=== PATIENT | female | born 1985 | race Caucasian/White ===

== ENCOUNTER 2019-09-02 12:29 | Emergency (ER) | payer SELFPAY ==
[2019-09-02 12:32] VITALS: BP 104/66; PULSE 91; RESP 18; TEMP 37; O2SAT 98; BMI 32.9
[2019-09-02 12:34] VITALS: TEMP -17.7; TEMP 0
== END 2019-09-02 18:31 | disposition left against medical advice (07) ==
PROVIDERS: Emergency Provider Emergency Medicine
DX: R05 Cough (principal)

== ENCOUNTER 2019-09-04 08:29 | Emergency (ER) | payer SELFPAY ==
[2019-09-04 08:29] VITALS: BP 115/65; PULSE 111; RESP 17; TEMP 38.5; O2SAT 94; BMI 33.1
[2019-09-04 08:38] VITALS: BP 115/65; PULSE 111; RESP 17; TEMP 38.5; O2SAT 94
--- NOTE | 2019-09-04 08:46 | RAD_ITS ---
STUDY: X-RAY CHEST REASON FOR EXAM: Female, 34 years old. Cough and fever. TECHNIQUE: PA and lateral views of the chest. COMPARISON: None. FINDINGS: Right lower lobe consolidation. There is no demonstrated pleural abnormality. Normal size heart. Normal mediastinum and trevon. Normal visualized pulmonary arteries. Normal visualized aortic arch and descending thoracic aorta. Normal visualized thoracic spine. Normal visualized ribs, clavicles, and shoulders. Evidence of prior cholecystectomy. RAD/Chest PA and Lateral IMPRESSION: Right lower lobe consolidation. Electronically Signed: David Barajas, at 9:20 EDT , Service support ,
--- NOTE | 2019-09-04 08:46 | ED.VISSUMM ---
- ER Visit Summary Date of Service: 09/04/19 Chief Complaint: Cough and fever History of Present Illness: The patient is a 34 F past medical history. Prior cholecystectomy. Patient states since Saturday she has had a fever and nonproductive cough. Also has had some mild nausea and some diarrhea. No dysuria. No abdominal pain. No sore throat. Physical Examination: Well appearing young female no acute distress. Vital signs are stable she does have a fever of 101.3. Pulse ox 94% on room air no signs of hypoxia. H EENT exam is unremarkable. Posterior pharynx moist and pink. No erythema or exudate. TMs normal bilaterally. No trouble swallowing or breathing. No stridor or drooling. Neck nontender. No lymphadenopathy. Trachea midline. Lungs clear to auscultation bilaterally. Dry cough. No rales, rhonchi or wheezing. Equal symmetrical. Heart tachycardic rate about 110 no murmur. Abdomen soft nontender normal bowel sounds no peritoneal signs. Patient moving all 4 extremities. Neurovascular intact. Back nontender. Neurologically she is awake alert with no focal motor deficits. Test Results: Chest x-ray AP and lateral 2 views read by myself and radiologist shows a definite right lower lobe pneumonia and possibly an infiltrate in the left lower lobe. Read by myself. Emergency Department Course and Treatment: P.o. Tylenol here. Patient's history and exam are consistent with pneumonia. Treatment Plan: Fluids and rest. Alternate Tylenol Motrin. Follow-up if not improving or return if worse. Given first dose of Zithromax here and then placed on it for 4 more days. Primary care physician follow-up with. Return if worse. Clinically the patient looks good she is not hypoxic she is in no distress we can attempt to treat this as an outpatient if she gets worse to return to be admitted. Disposition: Discharge Impression: Acute right lower lobe pneumonia This note was generated with [employer] dictation software. It may contain incorrect words, spelling, and punctuation that were not noted in review of the chart prior to signing ED Disposition - Plan for ED Patient: Disposition: Home or Assisted Living Instructions: PNEUMONIA (Adult) Prescriptions: Azithromycin [Zithromax] 250 mg PO DAILY #4 tab Prescription Printed Referrals: Dominic Cintron MD [STAFF PHYSICIAN] - 1 Week if not improving Additional Instructions: Plenty of fluids and rest. Alternate Tylenol Motrin for fever. Follow-up with your doctor if not improving or return if worse.
--- NOTE | 2019-09-04 08:49 | ED.DEP ---
ED Disposition - Plan for ED Patient: Disposition: Home or Assisted Living Instructions: PNEUMONIA (Adult) Prescriptions: Azithromycin [Zithromax] 250 mg PO DAILY #4 tab Prescription Printed Referrals: Dominic Cintron MD [STAFF PHYSICIAN] - 1 Week if not improving Additional Instructions: Plenty of fluids and rest. Alternate Tylenol Motrin for fever. Follow-up with your doctor if not improving or return if worse.
[2019-09-04] MEDS: Azithromycin 250 MG Tablet 500 MG PO (09:20)
[2019-09-04] MEDS: Acetaminophen 500 MG Tablet 1000 MG PO (09:20)
== END 2019-09-04 09:28 | disposition home or self-care (01) ==
LOC: ED 09:15
PROVIDERS: Emergency Provider Emergency Medicine
DX: J18.9 Pneumonia, unspecified organism (principal)
CPT/HCPCS: 71046; 99283

== ENCOUNTER 2020-04-11 15:13 | Emergency (ER) | payer SELFPAY ==
[2020-04-11 15:15] VITALS: BP 129/78; PULSE 77; RESP 18; TEMP 36.7; O2SAT 99; BMI 34.2
== END 2020-04-11 16:13 | disposition left against medical advice (07) ==
LOC: ED 16:54
PROVIDERS: Emergency Provider Emergency Medicine
DX: Z53.21 Procedure and treatment not carried out due to patient leaving prior to being seen by health care provider (principal)

== ENCOUNTER 2020-08-15 16:47 | Emergency (ER) | payer SELFPAY ==
[2020-08-15 16:49] VITALS: BP 127/77; PULSE 92; RESP 18; TEMP 36.3; O2SAT 98; BMI 36.2
--- NOTE | 2020-08-15 18:12 | RAD_ITS ---
STUDY: X-RAY CHEST REASON FOR EXAM: Female, 35 years old. shortness of breath x 1 week TECHNIQUE: Single AP portable view of the chest. COMPARISON: 09/04/2019. FINDINGS: The lungs are clear and expanded. There is no demonstrated pleural abnormality. Normal size heart. Normal mediastinum and trevon. Normal visualized pulmonary arteries. Normal visualized aortic arch and descending thoracic aorta. Normal visualized thoracic spine. Normal visualized ribs, clavicles, and shoulders. There is no demonstrated abnormality of the visualized soft tissue structures of the upper abdomen. RAD/Chest 1 View (Portable) IMPRESSION: Normal x-ray examination of the chest. Electronically Signed: Alexa Rivera MD at 19:14 EDT Tel , Service support ,
--- NOTE | 2020-08-15 19:31 | ED.DCSUM_ITS ---
- ER Visit Summary Date of Service: 08/15/20 Chief Complaint: Cough History of Present Illness: The patient is a 35 F with no primary care physician. She reports his cough began 1 week ago. She reports it is nonproductive. She has severe shortness of breath at worst mild currently. She has had subjective fever and chills. She has had sick contacts. She reports that her daughter had a sore throat. She did not have a cough. She reports that she wears a mask at all times. Patient reports that this is similar to when she is had pneumonia in the past. Physical Examination: Vitals: Stable. Afebrile. General: Well-nourished and well-developed. Head: Normocephalic atraumatic. Neck: Supple, no lymphadenopathy. No JVD. Nontender. Cardiovascular: Regular rate and rhythm. No murmurs. Respiratory: No respiratory distress. Clear to auscultation bilaterally. Abdominal: Soft, nontender, nondistended, normal bowel sounds. No guarding, rebound, or peritoneal signs. Back: Nontender. Extremities: Nontender, no edema. Skin: Normal color, no rash. Neurologic: Alert and oriented ?3. Cranial nerves II through XII are intact. Normal strength and sensation. Psych: Normal affect. Test Results: Clinical Impression(s) from Imaging Studies Chest X-Ray 08/15/20 18:12 IMPRESSION: Normal x-ray examination of the chest. Electronically Signed: Alexa Rivera MD at 19:14 EDT Tel , Service support , Emergency Department Course and Treatment: COVID-19 test was sent. Patient is resting comfortably. Treatment Plan: Patient be discharged with symptomatic care. She does understand that she may have COVID-19. She is instructed to quarantine. Follow-up with Dr. Montalvo in 10 to 14 days if not improving. Return to the emergency department for any worsening symptoms. Disposition: To home in improved and stable condition. Impression: 1. URI, possible COVID-19 infection. This note was generated with [employer] software. It may contain incorrect words, spelling, and punctuation that were not noted in review of the chart p rior to signing ED Disposition - Plan for ED Patient: Disposition: Home or Assisted Living Instructions: ED Upper Resp Infec No Abx Tx Referrals: Nando Montalvo MD [STAFF PHYSICIAN] - 10-14 Days if not better
[2020-08-15 20:02] VITALS: BP 125/72; PULSE 75; RESP 16; TEMP 36.7; O2SAT 98
== END 2020-08-15 20:05 | disposition home or self-care (01) ==
LOC: ED 18:10
PROVIDERS: Emergency Provider Emergency Medicine
DX: J06.9 Acute upper respiratory infection, unspecified (principal); F17.200 Nicotine dependence, unspecified, uncomplicated
CPT/HCPCS: 71045; 87635; 99282; U0003

== ENCOUNTER 2022-05-10 10:32 | Emergency (ER) | payer MEDICAID, SELFPAY ==
[2022-05-10 10:33] VITALS: BP 125/74; PULSE 105; RESP 20; TEMP 37.2; O2SAT 98; BMI 34.2
[2022-05-10 10:36] VITALS: BP 125/74; PULSE 105; RESP 20; TEMP 37.2; O2SAT 98
--- NOTE | 2022-05-10 10:45 | EX.ED.DYSGE1 ---
HPI <ERIKA Guzmán - Last Filed: 05/10/22 11:21> History of Present Illness Chief Complaint: General Illness Narrative Narrative: Female with no sniffing medical history presents to the emergency department with 2 days of generalized malaise, fatigue, headache, cough. Patient states that yesterday morning she woke up with a sore throat, she just learned that 2 of her coworkers had COVID-19. Patient went to a parade, and this morning had a fever, body aches, cough, and is here for evaluation. She denies any nausea or vomiting. PFSH <ERIKA Guzmán - Last Filed: 05/10/22 11:21> [facility] Home Medications NK 08/15/20 [History Last Taken Unknown] Allergy/AdvReac Type Severity Reaction Status Date / Time No Known Allergies Allergy Verified 05/10/22 10:36 Surgical History History of cholecystectomy Social History Smoking Status: Current every day smoker tobacco type: cigarettes ROS <ERIKA Guzmán - Last Filed: 05/10/22 11:21> ROS ED ROS Narrative Constitutional: Negative for weight loss, weakness. Positive for fever and chills Eyes: Negative for vision loss, vision change, double vision ENT: Negative for any sore throat, ear pain, congestion Cardiovascular: Negative for any chest pain, tightness, palpitations Respiratory: Negative for any sputum production, hemoptysis, dyspnea, dyspnea on exertion, orthopnea. Positive for cough Gastrointestinal: Negative for any abdominal pain, nausea, vomiting, diarrhea, constipation, blood in stool, blood in vomit : Negative for any urinary frequency, dysuria, retention, blood in urine Muscle skeletal: Negative for any muscle joint pain, stiffness, myalgias, arthralgias, neck pain, back pain Neurological: Negative for any syncope, numbness or tingling, dizziness. Positive for headache Skin: Negative for any rashes, lumps, itching, abrasions, lacerations Psychiatric: Negative for any depression, anxiety, stress, suicidal ideation, homicidal ideation Hematologic: Negative for any easy bruising, excessive bruising, easy bleeding Allergies: Negative for any eczema, hives, rash Constitutional Constitutional ED: Reports chills and fever(s) EXAM <ERIKA Guzmán - Last Filed: 05/10/22 11:21> Physical Exam Narrative Exam Narrative: Vital signs reviewed. HEET: Head normocephalic atraumatic, TMs clear bilaterally. Posterior pharynx is clear, moist mucous membranes. Nares clear bilaterally. Neck: Supple with no lymphadenopathy or tenderness. No signs of meningismus, negative jolt sign. Cardiac: Regular rate and rhythm no murmurs gallops or rubs, equal peripheral pulses bilaterally. Respiratory: Lungs clear to auscultation bilaterally. No chest tenderness. Abdomen: Soft, nontender, nondistended. No abdominal bruit or pulsatile masses. No hepatosplenomegaly Extremities: No peripheral edema, no signs of gross trauma or deformity. Active full range of motion of all extremities. Neuro: Cranial nerves II through XII intact, no focal neurological deficits. Skin: Clean dry and intact with no rash, purpura, petechiae, vesicles or pustules. Backs/flank: No CVA tenderness, no midline spinal tenderness, no deformity. Psych: Normal mood and affect. No SI, HI or acute psychosis. Const Vital Signs: 05/10/22 10:33 05/10/22 10:36 05/10/22 10:49 Temperature 98.9 F 98.9 F Temperature Source Temporal Temporal Pulse Rate 105 H 105 H Respiratory Rate 20 H 20 H Respiratory Effort Normal Non-Labored Respiratory Pattern Normal Blood Pressure 125/74 H 125/74 H Blood Pressure Mean 91 Pulse Ox 98 98 Oxygen Delivery Method Room Air Room Air 05/10/22 11:24 Temperature Temperature Source Pulse Rate Respiratory Rate 16 Respiratory Effort Respiratory Pattern Blood Pressure Blood Pressure Mean Pulse Ox Oxygen Delivery Method <Dr. J Carlos Dougherty MD - Last Filed: 05/10/22 11:45> Physical Exam Const Vital Signs: 05/10/22 10:33 05/10/22 10:36 05/10/22 10:49 Temperature 98.9 F 98.9 F Temperature Source Temporal Temporal Pulse Rate 105 H 105 H Respiratory Rate 20 H 20 H Respiratory Effort Normal Non-Labored Respiratory Pattern Normal Blood Pressure 125/74 H 125/74 H Blood Pressure Mean 91 Pulse Ox 98 98 Oxygen Delivery Method Room Air Room Air 05/10/22 11:24 Temperature Temperature Source Pulse Rate Respiratory Rate 16 Respiratory Effort Respiratory Pattern Blood Pressure Blood Pressure Mean Pulse Ox Oxygen Delivery Method MDM <ERIKA Guzmán - Last Filed: 05/10/22 11:21> [facility] Lab Data Attestation: I reviewed the patient's lab results. Treatment and Re-Evaluation Narrative: Patient appears well, patient appears nontoxic, vital signs are stable. Patient presents to the emergency department for headache, cough viral-like illness. Patient's physical examination is consistent with a viral illness. There is no indication of bacterial infection, patient did receive a rapid influenza/COVID-19 test. Patient told the nurse that her ride is here, her fever broke, she would just like to be discharged. The nurse did explain to her that the test are not back however she stated that she does not care and she left anyway. Patient was unable to get any discharge instructions, patient did not get reevaluated by provider. Patient be diagnosed with viral-like illness. <Dr. J Carlos Dougherty MD - Last Filed: 05/10/22 11:45> [facility] Narrative Medical decision making narrative: I have personally performed a face to face assessment of the patient and have reviewed the CHEVY Note. I performed a substantive portion of the visit including all aspects of the following. My chen findings include: History is is remarkable for upper respiratory infectious symptoms started yesterday. Patient has been exposed to multiple coworkers that are positive for COVID. HEENT is remarkable for congestion and decreased smell. There is no alteration in taste. She does complain of head pressure. She denies photophobia, neck pain or neck stiffness. She does endorse cough. Cough is nonproductive. She does endorse nausea and had diarrhea yesterday. She denies rash. She denies joint swelling. She does endorse aching. Exam is patient is tachycardic. She is not febrile nor is she hypoxic. Patient is curled up left side. She appears ill but not toxic. HEENT exam is remarkable for nasal congestion. Lungs are clear to auscultation with good movement of air bilaterally. Heart is rapid and regular. There is no murmur, gallop or rub. Abdomen is soft nontender. There are no dermatologic lesions noted. There is no nuchal rigidity. Medical Decision Making suspect patient has COVID-19 infection. COVID test was ordered. Treatment is symptomatic at this point Other additions or changes: Patient states her right has not arrived. She left prior to the nurse practitioner or I have not an opportunity to talk to her. She left without her home-going instructions. Suspect patient has COVID-19 infection in light of history and symptoms. Discharge Plan Triage Chief Complaint: General Illness ED Midlevel Provider: Juan Alberto Ellis ED Provider: J Carlos Dougherty Dx/Rx/DC Orders Clinical Impression: Suspected 2019 novel coronavirus infection, Viral syndrome Prescriptions: No Action NK Primary Care Provider: Care Physician,No Primary Referrals: Care Physician,No Primary [Primary Care Provider] - Print Language: Burundian Disposition Disposition: Home, Self Care Discharge Date/Time: 05/10/22 11:25
[2022-05-10] MEDS: Ibuprofen 400 MG Tablet 800 MG PO (10:49)
--- NOTE | 2022-05-10 11:19 | ED.RN ---
THIS RN ANSWERS CALL LIGHT. PT STATES MY FEVER BROKE. I JUST WANT TO GO HOME TO MY OWN BED. STATES SHE WILL JUST VIEW RESULTS VIA TEXT MSGS SHE HAD SIGNED UP FOR THAT UPON REGISTRATION. PT LEFT PRIOR TO D/C INSTRUCTIONS. ENCOURAGED TO COME BACK WITH ANY FURTHER COMPLICATIONS. DR. MCCOLLUM NOTIFIED OF PTS DEPARTURE PRIOR TO D/C INSTRUCTIONS
[2022-05-10 11:24] VITALS: RESP 16
== END 2022-05-10 11:25 | disposition home or self-care (01) ==
PROVIDERS: Emergency Provider Emergency Medicine; Visit Provider Emergency Medicine
DX: Z20.822 Contact with and (suspected) exposure to COVID-19 (principal); B34.9 Viral infection, unspecified; F17.210 Nicotine dependence, cigarettes, uncomplicated
CPT/HCPCS: 87428; 99282

== ENCOUNTER 2023-08-08 11:26 | Emergency (ER) | payer MEDICAID, SELFPAY ==
[2023-08-08 11:27] VITALS: BP 109/73; PULSE 80; RESP 18; TEMP 35.5; O2SAT 100
--- NOTE | 2023-08-08 12:49 | EDS_ITS ---
HPI History of Present Illness Chief Complaint: Chest Other Informant: patient Narrative Narrative: Patient is a 38-year-old female with history of regular tobacco use presenting with continued left-sided rib pain. Patient was diagnosed with pneumonia about a month ago at [facility] urgent care. She was treated with a course of doxycycline. She has continued to have a cough and over the past week or so has developed worsening right-sided rib pain. She actually went back to urgent care a week ago where they did x-rays and told her nothing was broken. She was put on NSAIDs (Motrin) which she feels is not very helpful. She is having continued pain but no new respiratory or cough symptoms. She states she cannot sleep at night because the pain is so bad. It is worse with deep breathing and movement. No new fevers. No difficulty breathing. No swelling of her legs. No other complaints or concerns at this time. PFSH PFSH Home Medications oxycodone 5 mg tablet 5 mg PO Q6H PRN pain 3 days #12 tabs 08/08/23 [Rx Last Taken Unknown] Allergy/AdvReac Type Severity Reaction Status Date / Time No Known Allergies Allergy Verified 08/08/23 11:27 Surgical History History of cholecystectomy Social History Smoking Status: Current every day smoker tobacco type: cigarettes ROS ROS ED Constitutional Constitutional ED: Denies chills or fever(s) ENT ENT ED: Denies sore throat Cardiovascular Cardiovascular: Reports as per HPI and chest pain Respiratory/Chest Respiratory/Chest: Reports cough; Denies dyspnea or dyspnea on exertion Gastrointestinal Gastrointestinal: Denies nausea or vomiting Musculoskeletal Musculoskeletal: Denies arthralgias or myalgias Integumentary Denies rash Neurologic Neurologic: Denies headache(s) Hematologic/Lymphatic Hematologic/Lymphatic: Denies easy bleeding or easy bruising EXAM Physical Exam Const Vital Signs: 08/08/23 11:27 Temperature 96 F L Temperature Source Temporal Pulse Rate 80 Respiratory Rate 18 Blood Pressure 109/73 Blood Pressure Mean 85 Pulse Ox 100 Oxygen Delivery Method Room Air Positive well nourished and well developed General Appearance ED: well developed and NAD HEENT Reports moist mucous membranes Eyes PERRL and EOMs intact bilaterally Neck supple and no JVD Chest Wall inspection of chest normal Chest Narrative: Significant tenderness palpation of the inferior left ribs especially along the costal margin. No chest wall crepitus or deformity appreciated. Resp normal respiratory effort and clear to auscultation bilaterally Auscultation: Negative for wheezes Cardio regular rate, regular rhythm and no murmurs GI normal to inspection, nondistended, normoactive bowel sounds and soft to palpation Back/Spine no thoracic nor lumbar tenderness Extremity normal to inspection General Extremety ED: Negative for edema General Extremity: Negative for edema Neuro oriented x3 Sensorium / Orientation: awake and alert Psych mental status grossly normal Skin no rashes or lesions noted and no wounds MDM MDM MDM Narrative Medical decision making narrative: Evaluated for continued worsening left-sided rib pain. Presentation highly consistent with costochondritis especially given her recent pneumonia and frequent coughing. Is highly reproducible on exam. She had imaging a week ago that did not show any acute process. She had no progression of her symptoms including change in her cough or new fever. She has normal vital signs. She is PE RC negative. I do not think she requires repeat imaging at this time. Patient be treated symptomatically with Lidoderm patch, oxycodone and Motrin. Will be given a short course of oxycodone and continue NSAID therapy as well. Counseled to use [id number] Lidoderm patches. Is counseled on the risk of a secondary pneumonia associated with taking shallow breaths was given an incentive spirometer and instructed on the importance of use. Discharged home in stable condition. Discussed and encouraged smoking cessation especially given her recent respiratory symptoms. Discharge Plan Triage Chief Complaint: Chest Other ED Provider: [place] Dx/Rx/DC Orders Clinical Impression: Costochondral chest pain Instructions: ED Chest Wall Pain, Costochondritis Prescriptions: New oxycodone 5 mg tablet 5 mg PO Q6H PRN (Reason: pain) 3 Days Qty: 12 0RF Primary Care Provider: Care Physician,No Primary Referrals: Care Physician,No Primary [Primary Care Provider] - Activity Restrictions/Additional Instructions: I recommend using [id number] 4% Salonpas extra strength Lidoderm patches to help with the pain in your chest wall. You can apply 1 a day. Continue taking anti-inflammatory such as ibuprofen or naproxen throughout the day. Other you have been given a short course of pain medication, oxycodone, to help with the pain. Take Tylenol for breakthrough pain. Use incentive spirometer as we discussed to help prevent secondary pneumonia. Disposition Disposition: Home, Self Care Discharge Date/Time: 08/08/23 13:23
[2023-08-08] MEDS: Lidocaine 5% Patch 1 PATCH TOPICAL (13:05)
[2023-08-08] MEDS: oxyCODONE 5 MG Tablet PO (13:06)
[2023-08-08] MEDS: Ibuprofen 600 MG Tablet PO (13:06)
== END 2023-08-08 13:23 | disposition home or self-care (01) ==
PROVIDERS: Emergency Provider Emergency Medicine; Visit Provider Emergency Medicine
DX: R07.81 Pleurodynia (principal); F17.210 Nicotine dependence, cigarettes, uncomplicated
CPT/HCPCS: 99283

== ENCOUNTER → 2024-08-25 | Outpatient (CLI) | payer MEDICAID, SELFPAY ==
[2024-08-25 12:57] LABS: Absolute Lymphocyte Count 2.23 X10^3/uL (0.83-4.51); Absolute Neutrophil Count 3.7 X10^3/uL (2.0-7.7); Basophil# 0.06 X10^3/uL; Basophil% 0.8 % (0-1); Eosinophil# 0.41 X10^3/uL; Eosinophils% 5.7 % (0-5); Hematocrit 43.6 % (37-47); Hemoglobin 13.9 g/dL (12.0-15.0); Lymphocyte # 2.23 X10^3/ul (0.83-4.51); Lymphocyte % 31.2 % (19-41); Mean Corp Hgb Conc 31.9 g/dL (32-36); Mean Corpuscular Hgb 28.4 pg (27.0-32.0); Mean Corpuscular Volume 89.2 fL (81-99); Mean Platelet Vol. 11.8 fl (6.2-12.0); Monocyte# 0.68 X10^3/uL; Monocyte% 9.5 % (0-10); NRBC Flagged by Analyzer 0 % (0-5); Neutrophil # 3.74 X10^3/uL (2.7-7.7); Neutrophil % 52.5 % (47-70); Platelet Count 269 K/mm3 (150-450); RBC Distribution Width CV 13.2 % (11.6-14.6); RBC Distribution Width SD 43.3 fl (35.1-43.9); Red Blood Count 4.89 M/mm3 (4.2-5.4); White Blood Count 7.1 K/mm3 (4.4-11.0)
[2024-08-25 13:13] LABS: ALB/GLOB Ratio 0.8 RATIO (0.9-2.4); AST(SGOT) 12 U/L (15-37); Alanine Aminotransfer ALT/SGPT 26 U/L (13-56); Albumin, Serum 3.4 g/dL (3.2-5.0); Alkaline Phosphatase 66 U/L (45-117); Anion Gap 6 (5-15); BUN 12 mg/dL (7-18); BUN/Creat Ratio 17.4 RATIO (10-20); Calcium,Total 9.2 mg/dL (8.5-10.1); Chloride 110 mmol/L (98-107); Cholesterol 131 mg/dL (200); Creatinine, Serum 0.69 mg/dL (0.55-1.02); EST Glomerular Filtration Rate 102 mL/min (>60); Est Glom Filt Rate - Afr Amer 123 mL/min (>60); Ferritin 50 ng/mL (8-252); Glucose 74 mg/dL (74-106); High Density Lipoprotein 57 mg/dL; Magnesium 2.3 mg/dL (1.6-2.6); Protein, Total 7.4 g/dL (6.4-8.2); Sodium Level 139 mmol/L (136-145); Triglycerides 39 mg/dL; Very Low Density Lipoprotein 8 mg/dL (5-40)
[2024-08-25 15:36] LABS: Hemoglobin A1c 5.5 % (3.8-5.6)
== END | disposition home or self-care (01) ==
LOC: VSLAB 10:32
PROVIDERS: PCP Family Medicine; Visit Provider Family Medicine
DX: F33.9 Major depressive disorder, recurrent, unspecified (principal); Z13.6 Encounter for screening for cardiovascular disorders; Z13.228 Encounter for screening for other metabolic disorders
CPT/HCPCS: 36415; 80053; 80061; 82306; 82607; 82728; 83036; 83735; 84443; 85025

== ENCOUNTER 2025-07-03 10:09 | Emergency (ER) | payer MEDICAID, SELFPAY ==
[2025-07-03 10:09] VITALS: BP 108/68; PULSE 77; RESP 11; TEMP 36.2; O2SAT 100; BMI 33.2
--- NOTE | 2025-07-03 10:35 | RAD_ITS ---
PROCEDURE: SACRUM-COCCYX MIN 2 VIEWS 07/03/2025 REASON FOR EXAM: PAIN, POSS INJURY TECHNIQUE: SACRUM-COCCYX MIN 2 VIEWS COMPARISON: None. FINDINGS: Bones: No acute bony abnormalities. Joints: Unremarkable. Soft tissues: No soft tissue abnormalities. RAD/Sacrum-Coccyx min 2 Views IMPRESSION: No acute osseous abnormalities. Reading Location: [id number]
--- NOTE | 2025-07-03 10:36 | EDS_ITS ---
HPI History of Present Illness Chief Complaint: Back Informant: patient and EMS Narrative Narrative: Healthy 32-year-old female presenting via EMS for low back pain. It is in her mid low back, radiating to either side near her buttocks, and some mild discomfort in her proximal thighs at 1 point but not now and nothing radiating down to her beyond the knees. No saddle anesthesia. No numbness or tingling or weakness in her legs but today when she tried to get up it hurt so bad that she was unable to stand, saying that it was all related to pain and weakness. She felt maybe there was spasm going on. 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 This morning she woke up and the same symptoms were worse she denies any other new symptoms. No bowel or bladder dysfunction. No dysuria. No abdominal pain. States she has had back pain in this area in the past but not as severe as it was today. She denies any fevers or chills or other systemic symptoms. She states she feels okay right now as long as she does not move. PFSH PFS Home Medications ?Medication ?Instructions ?Recorded ?Last Taken ?Type oxycodone 5 mg tablet 5 mg PO Q6H PRN pain 3 days #12 08/08/23 Unknown Rx tabs cyclobenzaprine 10 mg tablet 10 mg PO TID PRN Muscle S pasm #20 07/03/25 Unknown Rx TABLETS naproxen 500 mg tablet (Naprosyn) 500 mg PO BID PRN pa in #14 tabs 07/03/25 Unknown Rx Allergy/AdvReac Type Severity Reaction Status Date / Time No Known Allergies Allergy Verified 07/03/25 10:10 Surgical History (Updated 07/03/25 @ 10:[address] Raymond Mckee MD) History of bilateral tubal ligation History of cholecystectomy Social History Smoking Status: Current every day smoker tobacco type: cigarettes ROS ROS ED Constitutional Constitutional ED: Denies chills or fever(s) Eyes Eyes: Denies change in vision or diplopia ENT ENT ED: Denies rhinorrhea or sore throat Cardiovascular Cardiovascular: Denies chest pain or palpitations Respiratory/Chest Respiratory/Chest: Denies cough or dyspnea Gastrointestinal Gastrointestinal: Denies abdominal pain, constipation, fecal incontinence, nausea or vomiting Genitourinary Genitourinary ED: Reports other Details: no urinary retention ; Denies abdominal discomfort or urinary incontinence Musculoskeletal Musculoskeletal: Reports as per HPI, back pain and muscle spasms; Denies neck pain Integumentary Denies rash or wounds Neurologic Neurologic: Denies headache(s), paresthesias or weakness Psychiatric Psychiatric: Denies suicidal thoughts EXAM Physical Exam Const Vital Signs: 07/03/25 10:09 Temperature 97.1 F L Temperature Source Temporal Pulse Rate 77 Respiratory Rate 11 L Blood Pressure 108/68 Blood Pressure Mean 81 Pulse Ox 100 Oxygen Delivery Method Room Air Positive well nourished and well developed Constitutional Narrative: Well-appearing in no distress lying supine. General Appearance ED: well developed and NAD HEENT Reports moist mucous membranes Negative for trauma or tenderness Eyes PERRL and EOMs intact bilaterally Neck full ROM and supple Resp normal respiratory effort GI normal to inspection, nondistended, normoactive bowel sounds, soft to palpation and non-tender Auscultation: normoactive bowel sounds Palpation: soft Back/Spine normal to inspection Back/Spine Narrative: When palpating throughout the medial buttocks and SI joint areas, there is no tenderness and patient states that it feels better to palpate the general area. Full straight leg raises while supine negative and do not reproduce any significant pain. General Back: other FROM Lumbar Spine / Lower Back: ROM limited and straight leg raise negative bilaterally; Negative for lumbar spinal tenderness or paraspinal muscle tenderness Extremity normal to inspection, full ROM and no pedal edema General Extremety ED: Negative for edema, pulses abnormal or tenderness General Extremity: Negative for edema or pulses abnormal Neuro oriented x3 and no sensory deficits noted Sensorium / Orientation: alert Motor Exam: strength 5/5 throughout and clonus absent Deep Tendon Reflexes: Rt Patellar (L4): 2+, Lt Patellar (L4): 2+, Rt Ankle (S1): 2+ and Lt Ankle (S1): 2+ Deep Tendon Reflexes Back: Rt Patellar (L4): 2+, Lt Patellar (L4): 2+, Rt Ankle (S1): 2+ and Lt Ankle (S1): 2+ Plantar Reflex: Downgoing: bilateral Psych mental status grossly normal and thought process normal Skin no rashes or lesions noted and no wounds MDM MDM MDM Narrative Medical decision making narrative: Patient has normal neurologic exam, she is not in a lot of pain here with moving around although when she rolls over there she does have some transient discomfort in her low back only. There is no symptoms to suggest discitis or radiculitis, she states it was more severe earlier when she was having spasms that she was trying to stand, I suspect this is probably all víctor fascial/musculoskeletal. I am obtaining x-rays of the sacrum to rule out a crack or fracture, and in the meantime giving her doses of Norflex and Toradol for her pain. X-rays of the sacrum and coccyx are normal on my interpretation, 3 views. Radiology in agreement. Patient is doing a little bit better after the above medications, but when she tried to get onto her feet she is able to stand but she has her hands on her knees and she is not able to stand erect due to the pain and tightening. I am giving her a dose of morphine since she is getting a ride home, will prescribe her Naprosyn and cyclobenzaprine to use at home, supportive care advised for what I think is myofascial strain. Radiography Diagnostic Testing: Clinical Impression(s) from Imaging Studies Sacrum and Coccyx X-Ray 07/03/25 10:35 IMPRESSION: No acute osseous abnormalities. Reading Location: [facility] Discharge Plan Triage Chief Complaint: Back ED Provider: Raymond Mckee Dx/Rx/DC Orders Clinical Impression: Acute lumbosacral myofascial strain Instructions: Understanding Lumbosacral Strain Prescriptions: New cyclobenzaprine 10 mg tablet 10 mg PO TID PRN (Reason: Muscle Spasm) Qty: 20 0RF naproxen [Naprosyn] 500 mg tablet 500 mg PO BID PRN (Reason: pain) Qty: 14 0RF No Action oxycodone 5 mg tablet 5 mg PO Q6H PRN (Reason: pain) 3 Days Qty: 12 0RF Primary Care Provider: Sushila Valadez Referrals: Allyson,Sushila VSC, DO [Primary Care Provider] - 1 Week if not improving Print Language: Nepalese Disposition Disposition: Home, Self Care
[2025-07-03] MEDS: Orphenadrine 60 MG/2 ML Ampul IV (10:42)
[2025-07-03] MEDS: Ketorolac 30 MG/ML Syringe IV (10:42)
--- OUTSIDE RECORDS SUMMARY | 2025-07-03 11:19 | XMS RPT_ITS | CCD ---
Author Organization [facility] Inform ion Partnership [facility] Care Team Providers Care Lawn Care Technician Name Role Phone Unavailable Primary Care Provider UnavailSushila Rhodes Attending Unavailable Sushila Valadez Primary Care Unavailable [facility], [facility] Care Provider [facility] Care Unavailable VLADISLAV CASTANEDA Attending Unavailable [facility] Care Unavailable Medications Current Medications Medication Drug Class(es) Dates Sig (Normalized) Sig (Original) acetaminophen 500 mg oral tablet (16 sources) Start: 09-16-2017 take 1 tablet by mouth every eight hours as needed acetaminophen (TYLENOL) 500 mg tablet Take 1 tablet by mouth every 8 hours as needed. 50 tablet 09/16/2017 Active Comment on above: Take 1 tablet by marycarmen th every 8 hours as needed. [id number] 200 actuat albuterol 0.09 mg/actuat metered dose inhaler (20 sources) beta2-Adrenergic Agonist Start: 11-01-2023 take 2 puff(s) by inhalation every six hours as needed albuterol HFA (PROAIR HFA) 90 mcg/actuation inhaler Inhale 2 Puffs as instructed every 6 hours as needed. 8.5 g 11/01/2023 Active Start: 07-06-2023 take 2 puff(s) by in halation every four hours as needed albuterol HFA (PROAIR HFA) 90 mcg/actuation inhaler Inhale 2 Puffs as instructed every 4 hours as needed. 18 g 07/06/2023 Active Comment on above: Inhale 2 Puffs as in structed every 4 hours as needed. amoxicillin 875 mg oral tablet (1 source) Penicillin-class Antibacterial Start: 02 End: 01-04-20 take 1 tablet by mouth twice daily amoxicillin (AMOXIL) 875 mg tablet Indications: Otitis media with effusion, right Take 1 tablet by mouth two times a day for 7 days. 14 tablet 12/28/2024 01/04/2025 Active amoxicillin 875 mg / clavulanate 125 mg oral tablet (1 source) Penicillin-class Antibacterial Start: 04-11-20 End: 04-18-20 take 1 tablet by mouth twice daily amoxicillin-clavulan ate potassium (AUGMENTIN) 875-125 mg per tablet Indications: Pain, dental Take 1 tablet by mouth two times a day for 7 days. 14 tablet 0 04/11/2024 04/18/2024 Active ARIPiprazole 5 mg oral tablet (4 sources) Atypical Antipsychotic Start: 12-31-19 take 2.5 mg by mouth once daily at bedtime ARIPiprazole (ABILIFY) 5 mg tablet Take 2.5 mg by mouth daily at bedtime. 12/31/2024 Active doxycycline hyclate 100 mg oral tablet (1 source) Tetracycline-class Drug Start: 07-11-20 End: 07-18-20 take 1 tablet by mouth twice daily doxycycline (VIBRA-TABS) 100 mg tablet Take 1 tablet by mouth twice daily for 7 days. 14 tablet 0 07/11/2023 07/18/2023 Active Comment on above: Take 1 tablet by marycarmen th twice daily for 7 days. fluticasone propionate 0.05 mg/actuat metered dose nasal spray (5 sources) Corticosteroid Start: 12-28-19 take 2 spray(s) by mouth once daily fluticasone (FLONASE) 50 mcg/actuation nasal spray Indications: Otitis media with effusion, right Use 2 Sprays in each nostril once daily. Rinse mouth after use. 1 Each 12/28/2024 Active 24 hr guanFACINE 1 mg extended release oral tablet (5 sources) Central alpha-2 Adrenergic Agonist Start: 11-21-19 take 1 tablet by mouth once daily at bedtime guanFACINE (INTUNIV) 1 mg ER 24 hr tablet(s) Take 1 tablet by mouth daily at bedtime. 11/21/2024 Active ibuprofen 600 mg oral tablet (20 sources) Nonsteroidal Anti-inflammatory Drug Start: 07-06-20 take 1 tablet by mouth every six hours as needed ibuprofen (MOTRIN) 600 mg tablet Take 1 tablet by mouth every 6 hours as needed for pain. 21 tablet 07/06/2024 Active Start: 07-11-2015 End: 07-29-2023 take 1 tablet by mouth every eight hours as needed ibuprofen (MOTRIN) 800 mg tablet Take 1 tablet by mouth every 8 hours as needed for Pain. 28 tablet 09/16/2017 Active Comment on above: Take 1 tablet by marycarmen th every 8 hours as needed. Take 1 tablet by marycarmen th every 8 hours as needed for Pain. polymyxin b [id number] unt/ml / trimethoprim 1 mg/ml ophthalmic solution (1 source) Dihydrofolate Reductase Inhibitor Antibacterial, Polymyxin-class Antibacterial Start: 4 End: 4 take 1 drop(s) into the eye(s) every four hours trimethoprim-polymy jef (POLYTRIM) 10,000 unit- 1 mg/mL ophthalmic solution Indications: [place] eye disease of right eye Use 1 Drop in the right eye every 4 hours for 7 days. 10 mL 07/22/2024 07/29/2024 Active predniSONE 10 mg oral tablet (6 sources) Start: 5 End: 5 predniSONE (DELTASONE) 10 mg tablet Indications: ETD (Eustachian tube dysfunction), right Take 4 tabs daily for 3 days, then 2 tabs daily for 3 days, then 1 tab daily for 3 days with food. 21 tablet 01/14/2025 01/23/2025 Active Start: 04-24-2024 End: 05-03-2024 predniSONE (DELTASONE) 10 mg tablet Indications: Neck pain Take 4 tabs daily for 3 days, then 2 tabs daily for 3 days, then 1 tab daily for 3 days with food. 21 tablet 0 04/24/2024 05/03/2024 Active Start: 07-06-2023 End: 07-11-2023 take 2 tablets by mouth once daily predniSONE (DELTASONE) 20 mg tablet Take 2 tablets by mouth once daily for 5 days. 10 tablet 0 07/06/2023 07/11/2023 Active Comment on above: Take 2 tablets by mo [facility] once daily for 5 days. sertraline 50 mg oral tablet (5 sources) Serotonin Reuptake Inhibitor Start: 11-21-2024 take 1 tablet by mouth once sertraline (ZOLOFT) 50 mg tablet Take 1 tablet by mouth every afternoon. 11/21/2024 Active Completed/Discontinued Medications Medication Drug Class(es) Dates Sig (Normalized) Sig (Original) benzonatate 100 mg oral capsule (5 sources) Non-narcotic Antitussive Start: 07-06-2023 End: 08-05-2023 take 2 capsules by mouth every eight hours as needed benzonatate (TESSALON PERLE) 100 mg capsule Take 2 capsules by mouth three times daily as needed. 30 capsule 07/06/2023 07/29/2023 Discontinued Comment on above: Take 2 capsules by m outh three times daily as needed. Take 2 capsules by m outh three times daily as needed for up to 7 days. Problems Problem Classification Problem Date Documented Date Episodic/Chronic Acute and chronic tonsillitis (1 source) Amygdalolith; Translations: [Other chronic diseases of tonsils and adenoids] Chronic Chronic obstructive pulmonary disease and bronchiectasis (1 source) Bronchitis; Translations: [Bronchitis, not specified as acute or chronic] 07-06-2023 Episodic Disorders of teeth and jaw (1 source) Toothache; Translations: [Other specified disorders of teeth and supporting structures] 04-11-2024 Episodic Inflammation; infection of eye (except that caused by tuberculosis or sexually transmitteddisease) (1 source) Conjunctivitis; Translations: [Other mucopurulent conjunctivitis, right eye] 07-22-2024 Episodic Mood disorders (1 source) Major depressive disorder, recurrent, unspecified; Translations: [Major depressive disorder, recurrent, unspecified] Onset: 09-16-2024 Chronic Other ear and sense organ disorders (1 source) Otalgia, right ear; Translations: [Otalgia, unspecified] Episodic Other lower respiratory disease (2 sources) Cough; Translations: [Subacute cough] 07-29-2023 Episodic Other lower respiratory disease (3 sources) Rib pain; Translations: [Pleurodynia] 07-29-2023 Episodic Other upper respiratory infections (1 source) Chronic sinusitis; Translations: [Chronic sinusitis, unspecified] 07-11-2023 Chronic Other upper respiratory infections (7 sources) Acute upper respiratory infection; Translations: [Acute upper respiratory infection, unspecified] Onset: 02-25-2025 07-06-2024 Episodic Otitis media and related conditions (2 sources) Otitis media; Translations: [Unspecified nonsuppurative otitis media, right ear] 12-28-2024 Episodic Spondylosis; intervertebral disc disorders; other back problems (1 source) Neck pain; Translations: [Cervicalgia] 04-24-2024 Episodic Viral infection (5 sources) Viral infection, unspecified; Translations: [Viral disease] Onset: 09-15-2017 07-06-2024 Episodic Results Test Name Value Interpretation Reference Range Facility CNOVon 02-25-2025 CNOV Office Visit ([facility] ) ----- DAKSHA DOS SANTOS ([id number]) 1985 F Date Time Provider Department 02/25/25 1:15 PM VLADISLAV CASTANEDA [facility] During your visit today, we recorded the following information about you: Temperature Pulse Respiration Blood pressure 98 degrees 72/minute 18/minute 111/74 Weight 111.3 kg Vladislav Castaneda APRN.TAKE UP OPERATOR 02/25/2025 1:41 PM Signed [facility] Subjective Daksha Dos Santos is a 39 year old female. Patient presents with: Sore Throat: Bilateral ear pain and fullness, fever x last night HPI Nontoxic-appearing 39-year-old female presents urgent care chief plaint sore throat bilateral ear fullness fever. Had a fever last night. Most problem symptom today is ear pain. Left work early due to discomfort. Sick contacts unknown. Patient states children have been sick recently illness has been going through the house. OTC medications none. No ear trauma loss hearing or otorrhea. No fevers today. Is not is not breast-feeding. No chest pain shortness of breath or hemoptysis. No vomiting abdominal pain. Past medical history prescription medications allergies reviewed Review of Systems Constitutional: Positive for fatigue. Negative for chills, diaphoresis and fever. HENT: Positive for ear pain and sore throat. Negative for congestion, drooling, ear discharge, rhinorrhea, sinus pressure, sinus pain, sneezing and trouble swallowing. Eyes: Negative for pain, discharge, redness, itching and visual disturbance. Respiratory: Negative for cough, chest tightness, shortness of breath and wheezing. Cardiovascular: Negative for chest pain. Gastrointestinal: Positive for nausea. Negative for abdominal distention, abdominal pain, blood in stool, constipation, diarrhea and vomiting. Genitourinary: Negative for difficulty urinating and dysuria. Musculoskeletal: Negative for arthralgias, joint swelling, neck pain and neck stiffness. Skin: Negative for rash. Neurological: Positive for headaches. Negative for dizziness, weakness and numbness. Objective BP 111/74 Pulse 72 Temp 36.7 ?C (98 ?F) Resp 18 Wt 111.3 kg (245 lb 6 oz) LMP 01/10/2025 (Exact Date) SpO2 99% BMI 38.43 kg/m? Physical Exam Constitutional: Appearance: Normal appearance. HENT: Head: Normocephalic. Jaw: No trismus, tenderness, swelling or pain on movement. Right Ear: Tympanic membrane, ear canal and external ear normal. Left Ear: Tympanic membrane, ear canal and external ear normal. Nose: No congestion. Mouth/Throat: Mouth: Mucous membranes are moist. Pharynx: Oropharynx is clear. Uvula midline. No oropharyngeal exudate or posterior oropharyngeal erythema. Eyes: Conjunctiva/sclera: Conjunctivae normal. Cardiovascular: Rate and Rhythm: Normal rate. Pulmonary: Effort: Pulmonary effort is normal. Breath sounds: Normal breath sounds. No wheezing, rhonchi or rales. Abdominal: Palpations: Abdomen is soft. Tenderness: There is no abdominal tenderness. There is no guarding or rebound. Musculoskeletal: General: Normal range of motion. Cervical back: Normal range of motion and neck supple. No edema or erythema. No pain with movement. Normal range of motion. Lymphadenopathy: Cervical: No cervical adenopathy. Skin: General: Skin is warm. Findings: No rash. Neurological: General: No focal deficit present. Mental Status: She is alert and oriented to person, place, and time. Mental status is at baseline. {ASSESSMENT/PLAN: 1. Sore throat - ICD9: 462, ICD10: J02.9 (primary diagnosis) - STREP A MOLECULAR (POC) 2. Viral illness - ICD9: 079.99, ICD10: B34.9 - Discussed viral etiology and rationale for treatment. - Symptomatic treatment with prn analgesia - Supportive care with fluids and rest Strep test negative. Clear fluid noted behind bilateral TMs. TMs pearly yarbrough and intact. No evidence of infection. Treat as viral etiology. Patient was educated on supportive therapies. Patient will follow up with primary care provider as needed. Patient was instructed to immediately proceed to emergency room for any new, worsening, or symptoms lasting longer than anticipated. The patient's clinical presentation is otherwise unremarkable at this time. Based on exam and clinical finding, the patient is stable for discharge. Plan of care was discussed with patient. Patient verbalizes understanding and agrees to plan of care. This note was generated using [employer] software. It may contain errors in wording, punctuation, or spelling. Vladislav Castaneda APRN.TAKE UP OPERATOR History and Record Review Clinical information obtained from an independent historian. History obtained from or confirmed by: parent. External record(s) reviewed: prior outpatient record. Disposition The patient was discharged. Procedures Allergies As of Date: 02/25/2025 (No Known Allergies) Date Reviewe (more content not included)... Normal [facility] STREP A MOLECULAR (POC)on Procedural Control Valid [facility] Strep A (POCT) Negative Negative [facility] CNOVon 01-20-2025 CNOV Office Visit ([facility] ) ----- LEVONDAKSHA SYED ([id number]) 1985 F Date Time Provider Department 01/20/25 4:15 PM NANDO NÚÑEZ [facility] During your visit today, we recorded the following information about you: Pulse Respiration Blood pressure Weight 83/minute 16/minute 94/72 108 kg Nando Núñez APRN.TAKE UP OPERATOR 01/20/2025 4:49 PM Signed [facility] Subjective Daksha Dos Santos is a 39 year old female. HPI Daksha Dos Santos is a 39 year old female who presents today for CC of st, cough, congestion, ear pain. This started 1 day ago. Has tried otc medication for relief. Symptoms are worsened by nothing. Risk factors sick exposures at home. Nonsmoker. Denies possibility of being . .Patient presents with: Sore Throat Flu Like Symptoms PAST MEDICAL HISTORY Diagnosis Date NEGATIVE MEDICAL HISTORY No past surgical history on file. ALLERGIES Patient has no known allergies. MEDICATIONS ARIPiprazole (ABILIFY) 5 mg tablet Take 2.5 mg by mouth daily at bedtime. predniSONE (DELTASONE) 10 mg tablet Take 4 tabs daily for 3 days, then 2 tabs daily for 3 days, then 1 tab daily for 3 days with food. sertraline (ZOLOFT) 50 mg tablet Take 1 tablet by mouth every afternoon. guanFACINE (INTUNIV) 1 mg ER 24 hr tablet(s) Take 1 tablet by mouth daily at bedtime. fluticasone (FLONASE) 50 mcg/actuation nasal spray Use 2 Sprays in each nostril once daily. Rinse mouth after use. (Patient not taking: Reported on 01/14/2025) ibuprofen (MOTRIN) 600 mg tablet Take 1 tablet by mouth every 6 hours as needed for pain. (Patient not taking: Reported on 12/28/2024) albuterol HFA (PROAIR HFA) 90 mcg/actuation inhaler Inhale 2 Puffs as instructed every 6 hours as needed. (Patient not taking: Reported on 12/28/2024) albuterol HFA (PROAIR HFA) 90 mcg/actuation inhaler Inhale 2 Puffs as instructed every 4 hours as needed. (Patient not taking: Reported on 12/28/2024) ibuprofen (MOTRIN) 800 mg tablet Take 1 tablet by mouth every 8 hours as needed for Pain. (Patient not taking: Reported on 12/28/2024) acetaminophen (TYLENOL) 500 mg tablet Take 1 tablet by mouth every 8 hours as needed. (Patient not taking: Reported on 12/28/2024) No family history on file. Social History Tobacco Use Smoking status: Former Types: Cigarettes Passive exposure: Current Smokeless tobacco: Never Substance Use Topics Alcohol use: No Drug use: No Patient presents with: Sore Throat Flu Like Symptoms HPI Review of Systems Constitutional: Negative for chills, fatigue and fever. HENT: Positive for ear pain, rhinorrhea and sore throat. Negative for ear discharge, sinus pressure and sinus pain. Eyes: Negative for discharge and redness. Respiratory: Positive for cough. Negative for shortness of breath and wheezing. Cardiovascular: Negative for chest pain. Skin: Negative for rash. Objective BP 94/72 Pulse 83 Resp 16 Wt 108 kg (238 lb 1.6 oz) LMP 01/10/2025 (Exact Date) SpO2 97% BMI 37.29 kg/m? Physical Exam Constitutional: General: She is not in acute distress. Appearance: She is not toxic-appearing or diaphoretic. HENT: Head: Normocephalic and atraumatic. Right Ear: Hearing, tympanic membrane, ear canal and external ear normal. Left Ear: Hearing, tympanic membrane, ear canal and external ear normal. Nose: Nose normal. Mouth/Throat: Pharynx: Uvula midline. Eyes: General: Lids are normal. No scleral icterus. Right eye: No discharge. Left eye: No discharge. Conjunctiva/sclera: Conjunctivae normal. Pupils: Pupils are equal, round, and reactive to light. Neck: Trachea: Trachea normal. Cardiovascular: Rate and Rhythm: Normal rate and regular rhythm. Heart sounds: Normal heart sounds. Pulmonary: Effort: Pulmonary effort is normal. Breath sounds: Normal breath sounds. Musculoskeletal: Cervical back: Normal range of motion and neck supple. Lymphadenopathy: Cervical: No cervical adenopathy. Skin: Findings: No rash. Neurological: Mental Status: She is alert and oriented to person, place, and time. ASSESSMENT/PLAN: 1. URI, acute - ICD9: 465.9, ICD10: J06.9 (primary diagnosis) - Discussed viral etiology and rationale for treatment. - Symptomatic treatment with prn analgesia - Supportive care with fluids and rest - Follow up in 3-5 days if symptoms persist or sooner if worsening of symptoms 2. Sore throat - ICD9: 462, ICD10: J02.9 Negative, viral - STREP A MOLECULAR (POC) Nando Núñez APRN.TAKE UP OPERATOR MDM Procedures Allergies As of Date: 01/20/2025 (No Known Allergies) Date Reviewed: 01/20/2025 Reviewed by: Doreen Fitzpatrick MA - Fully Assessed Reason for Visit: Sore Throat [200] Flu Like Symptoms [267] Primary Visit Diagnosis:URI, acute [J06.9] Other Visit Diagnosis:Sore throat [J02.9] Order(s):STREP A MOLECULAR (POC) [[id number]] Order #: [id number]. #:[id number] (more content not included)... Normal [facility] STREP A MOLECULAR (POC)on Procedural Control Valid [facility] Strep A (POCT) Negative Negative [facility] CNOVon 01-14-2025 CNOV Office Visit ([facility] ) ----- DAKSHA DOS SANTOS ([id number]) 1985 F Date Time Provider Department 01/14/25 9:30 AM [facility]ANDO NÚ[facility] During your visit today, we recorded the following information about you: Temperature Pulse Respiration Blood pressure 97.4 degrees 71/minute 20/minute 115/76 Weight Last Period 107 kg 01/10/25 Nando Núñez APRN.TAKE UP OPERATOR 01/14/2025 10:21 AM Signed [facility] Subjective Daksha Dos Santos is a 39 year old female. HPI HPI Daksha Dos Santos is a 39 year old female who presents today for CC of st, cough, congestion, ear pain, upset stomach. This started 2 days ago. Has tried otc medication for relief. Symptoms are worsened by nothing. Risk factors sick exposures. .Patient presents with: Ear Pain: R ear pain, sore throat, runny nose, nasal congestion, chest tightness, stomachache x2 days PAST MEDICAL HISTORY Diagnosis Date NEGATIVE MEDICAL HISTORY No past surgical history on file. ALLERGIES Patient has no known allergies. MEDICATIONS ARIPiprazole (ABILIFY) 5 mg tablet Take 2.5 mg by mouth daily at bedtime. sertraline (ZOLOFT) 50 mg tablet Take 1 tablet by mouth every afternoon. guanFACINE (INTUNIV) 1 mg ER 24 hr tablet(s) Take 1 tablet by mouth daily at bedtime. fluticasone (FLONASE) 50 mcg/actuation nasal spray Use 2 Sprays in each nostril once daily. Rinse mouth after use. (Patient not taking: Reported on 01/14/2025) ibuprofen (MOTRIN) 600 mg tablet Take 1 tablet by mouth every 6 hours as needed for pain. (Patient not taking: Reported on 12/28/2024) albuterol HFA (PROAIR HFA) 90 mcg/actuation inhaler Inhale 2 Puffs as instructed every 6 hours as needed. (Patient not taking: Reported on 12/28/2024) albuterol HFA (PROAIR HFA) 90 mcg/actuation inhaler Inhale 2 Puffs as instructed every 4 hours as needed. (Patient not taking: Reported on 12/28/2024) ibuprofen (MOTRIN) 800 mg tablet Take 1 tablet by mouth every 8 hours as needed for Pain. (Patient not taking: Reported on 12/28/2024) acetaminophen (TYLENOL) 500 mg tablet Take 1 tablet by mouth every 8 hours as needed. (Patient not taking: Reported on 12/28/2024) No family history on file. Social History Tobacco Use Smoking status: Former Types: Cigarettes Passive exposure: Current Smokeless tobacco: Never Substance Use Topics Alcohol use: No Drug use: No Review of Systems Constitutional: Negative for chills, fatigue and fever. HENT: Positive for ear pain, rhinorrhea and sore throat. Negative for ear discharge, sinus pressure and sinus pain. Eyes: Negative for discharge and redness. Respiratory: Positive for cough. Negative for shortness of breath and wheezing. Cardiovascular: Negative for chest pain. Skin: Negative for rash. Objective BP 115/76 Pulse 71 Temp 36.3 ?C (97.4 ?F) Resp 20 Wt 107 kg (235 lb 14.3 oz) LMP 01/10/2025 (Exact Date) SpO2 97% BMI 36.95 kg/m? Physical Exam Constitutional: General: She is not in acute distress. Appearance: She is not toxic-appearing or diaphoretic. HENT: Head: Normocephalic and atraumatic. Right Ear: Hearing, tympanic membrane, ear canal and external ear normal. Left Ear: Hearing, tympanic membrane, ear canal and external ear normal. Nose: Nose normal. Mouth/Throat: Pharynx: Uvula midline. Eyes: General: Lids are normal. No scleral icterus. Right eye: No discharge. Left eye: No discharge. Conjunctiva/sclera: Conjunctivae normal. Pupils: Pupils are equal, round, and reactive to light. Neck: Trachea: Trachea normal. Cardiovascular: Rate and Rhythm: Normal rate and regular rhythm. Heart sounds: Normal heart sounds. Pulmonary: Effort: Pulmonary effort is normal. Breath sounds: Normal breath sounds. Musculoskeletal: Cervical back: Normal range of motion and neck supple. Lymphadenopathy: Cervical: No cervical adenopathy. Skin: Findings: No rash. Neurological: Mental Status: She is alert and oriented to person, place, and time. Assessment and Plan MDM Procedures ASSESSMENT/PLAN: 1. URI, acute - ICD9: 465.9, ICD10: J06.9 (primary diagnosis) - Discussed viral etiology and rationale for treatment. - Symptomatic treatment with prn analgesia - Supportive care with fluids and rest - Follow up in 3-5 days if symptoms persist or sooner if worsening of symptoms - COVID AND INFLUENZA A/B AND RSV PCR, ROUTINE 2. Sore throat - ICD9: 462, ICD10: J02.9 Negative. - STREP A MOLECULAR (POC) 3. ETD (Eustachian tube dysfunction), right - ICD9: 381.81, ICD10: H69.91 -use medication as prescribed -follow up if symptoms persist, worsen, change - PREDNISONE 10 MG TABLET Nando Núñez APRN.TAKE UP OPERATOR Allergies As of Date: 01/14/2025 (No Known Allergies) Date Reviewed: 01/14/2025 Reviewed by: Magaly Craft LPN - Fully Assessed Reason for Visit: Ear Pain [817] Cmt: R ear pain, sore throat, runny nose, nasal congesti (more content not included)... Normal [facility] STREP A MOLECULAR (POC)on Procedural Control Valid [facility] Strep A (POCT) Negative Negative [facility] CNOVon 12-28-2024 CNOV Office Visit ([facility] ) ----- DAKSHA DOS SANTOS ([id number]) 1985 F Date Time Provider Department 12/28/24 1:30 PM ROSALBA HOFFMAN [facility] During your visit today, we recorded the following information about you: Temperature Pulse Respiration Blood pressure 98.8 degrees 70/minute 21/minute 118/78 Weight 108.5 kg Rosalba Hoffman, ANGELINA.TAKE UP OPERATOR 12/28/2024 1:41 PM Signed Subjective Ear Pain Associated symptoms include congestion. Pertinent negatives include no chills, fever or sore throat. Daksha Dos Santos is a 39 year old female who presents with right ear pain since last night. Describes pain as throbbing and rates 2/10 now but states it was worse last night. She has had some decreased hearing in right ear. She has recently had some nasal congestion and drainage. She did not take any medication for this. Review of Systems Constitutional: Negative for chills, fever and malaise/fatigue. HENT: Positive for congestion, ear pain and hearing loss. Negative for sore throat. Respiratory: Negative. Cardiovascular: Negative. BP 118/78 Pulse 70 Temp 37.1 ?C (98.8 ?F) Resp 21 Wt 108.5 kg (239 lb 3.2 oz) LMP 02/29/2024 SpO2 98% BMI 37.46 kg/m? PAST MEDICAL HISTORY Diagnosis Date NEGATIVE MEDICAL HISTORY No past surgical history on file. ALLERGIES Patient has no known allergies. MEDICATIONS sertraline (ZOLOFT) 50 mg tablet Take 1 tablet by mouth every afternoon. guanFACINE (INTUNIV) 1 mg ER 24 hr tablet(s) Take 1 tablet by mouth daily at bedtime. amoxicillin (AMOXIL) 875 mg tablet Take 1 tablet by mouth two times a day for 7 days. fluticasone (FLONASE) 50 mcg/actuation nasal spray Use 2 Sprays in each nostril once daily. Rinse mouth after use. ibuprofen (MOTRIN) 600 mg tablet Take 1 tablet by mouth every 6 hours as needed for pain. (Patient not taking: Reported on 12/28/2024) albuterol HFA (PROAIR HFA) 90 mcg/actuation inhaler Inhale 2 Puffs as instructed every 6 hours as needed. (Patient not taking: Reported on 12/28/2024) albuterol HFA (PROAIR HFA) 90 mcg/actuation inhaler Inhale 2 Puffs as instructed every 4 hours as needed. (Patient not taking: Reported on 12/28/2024) ibuprofen (MOTRIN) 800 mg tablet Take 1 tablet by mouth every 8 hours as needed for Pain. (Patient not taking: Reported on 12/28/2024) acetaminophen (TYLENOL) 500 mg tablet Take 1 tablet by mouth every 8 hours as needed. (Patient not taking: Reported on 12/28/2024) No family history on file. Social History Tobacco Use Smoking status: Former Types: Cigarettes Passive exposure: Current Smokeless tobacco: Never Substance Use Topics Alcohol use: No Drug use: No Objective Physical Exam Vitals and nursing note reviewed. Constitutional: General: She is not in acute distress. Appearance: Normal appearance. She is not ill-appearing. HENT: Right Ear: Ear canal and external ear normal. Decreased hearing noted. A middle ear effusion is present. Tympanic membrane is injected. Left Ear: Tympanic membrane, ear canal and external ear normal. Nose: Nose normal. Mouth/Throat: Pharynx: Uvula midline. Cardiovascular: Rate and Rhythm: Normal rate and regular rhythm. Heart sounds: Normal heart sounds. Pulmonary: Effort: Pulmonary effort is normal. No respiratory distress. Breath sounds: Normal breath sounds. No wheezing or rales. Skin: General: Skin is warm and dry. Findings: No erythema or rash. Neurological: Mental Status: She is alert. ASSESSMENT/PLAN: 1. Otitis media with effusion, right - ICD9: 381.4, ICD10: H65.91 - Will begin treatment with as per antibiotic as written, see orders - Supportive care with plenty of fluids, rest, and analgesia prn. - AMOXICILLIN 875 MG TABLET - FLUTICASONE PROPIONATE 50 MCG/ACTUATION NASAL SPRAY,SUSPENSION - Follow-up with your PCP in 3-5 days if symptoms have not improved or sooner if symptoms worsen - Discussed red flags and need for immediate medical evaluation if any occur. - Discussed supportive care treatment with fluids, rest and analgesia. - Discussed expected course of illness Rosalba PraislerEVELINE Cortez Kathy, APRN.CNP 12/28/2024 1:39 PM Signed ASSESSMENT/PLAN: 1. Otitis media with effusion, right - ICD9: 381.4, ICD10: H65.91 - Will begin treatment with as per antibiotic as written, see orders - Supportive care with plenty of fluids, rest, and analgesia prn. - AMOXICILLIN 875 MG TABLET - FLUTICASONE PROPIONATE 50 MCG/ACTUATION NASAL SPRAY,SUSPENSION - Follow-up with your PCP in 3-5 days if symptoms have not improved or sooner if symptoms worsen - Discussed red flags and need for immediate medical evaluation if any occur. - Discussed supportive care treatment with fluids, rest and analgesia. - Discussed expected course of illness Rosalba Hoffman APRN.CNP OTITIS MEDIA GENERAL INFORMATION: Otitis media is (more content not included)... Normal [facility] L3300.0940on 08-29-2024 VIT D,25 HYDROX Normal Comment on above: Result Comment: TEST RESULTS LIMITS Vitamin D, 25-Hydroxy 30.1 ng/mL 30.0-100.0 Vitamin D deficiency has been defined by the [place] [employer] and an Endocrine Society practice guideline as a level of serum 25-OH vitamin D less than 20 ng/mL (1,2). The Endocrine Society went on to further define vitamin D insufficiency as a level between 21 and 29 ng/mL (2). 1. IOM ([place] [employer]). 2010. Dietary reference intakes for calcium and D. [place]: The National Academies Press. 2. Mercedes MF, Madhu PETIT, Brett SMITH, et al. Evaluation, treatment, and prevention of vitamin D deficiency: an Endocrine Society clinical practice guideline. JCEM. 2010; 96(7):1911-30. TESTING PERFORMED AT [facility]. ORIGINAL REPORT ON FILE IN LAB CONTAINS ADDITIONAL TEST SITE INFORMATION. Performed By: #### L 501.5200, L5000.0012, L3300.0940, L501.9520, L503.6550, L500.4050, L100.0100, L500.4100, L501.9985 #### Laboratory [address] [place], [address] L5000.0012on 08-29-2024 Vitamin B12 Normal Comment on above: Result Comment: TEST RESULTS LIMITS Vitamin B12 590 pg/mL 232-1245 TESTING PERFORMED AT [facility]. ORIGINAL REPORT ON FILE IN LAB CONTAINS ADDITIONAL TEST SITE INFORMATION. Performed By: #### L 501.5200, L5000.0012, L3300.0940, L501.9520, L503.6550, L500.4050, L100.0100, L500.4100, L501.9985 #### Laboratory [address] [place], [address] CBC W/Diff, Automatedon 10- Absolute Lymph 2.23 X10 3/uL Normal 0.83-4.51 Comment on above: Performed By: #### L 501.5200, L5000.0012, L3300.0940, L501.9520, L503.6550, L500.4050, L100.0100, L500.4100, L501.9985 #### Laboratory [address] [place], [address] Absolute Neut 3.7 X10 3/uL Normal 2.0-7.7 Comment on above: Performed By: #### L 501.5200, L5000.0012, L3300.0940, L501.9520, L503.6550, L500.4050, L100.0100, L500.4100, L501.9985 #### Laboratory [address] [place], [address] Basophils/100 WBC (Bld) 0.8 % Normal 0-1 Comment on above: Performed By: #### L 501.5200, L5000.0012, L3300.0940, L501.9520, L503.6550, L500.4050, L100.0100, L500.4100, L501.9985 #### Laboratory [address] [place], [address] Eosinophils/100 WBC (Bld) 5.7 % High 0-5 Comment on above: Performed By: #### L 501.5200, L5000.0012, L3300.0940, L501.9520, L503.6550, L500.4050, L100.0100, L500.4100, L501.9985 #### Laboratory [address] [place], [address] Erythrocyte distribution width (RBC) [Ratio] 13.2 % Normal 11.6-14.6 Comment on above: Performed By: #### L 501.5200, L5000.0012, L3300.0940, L501.9520, L503.6550, L500.4050, L100.0100, L500.4100, L501.9985 #### Laboratory [address] [place], [address] Hematocrit (Bld) [Volume fraction] 43.6 % Normal 37-47 Comment on above: Performed By: #### L 501.5200, L5000.0012, L3300.0940, L501.9520, L503.6550, L500.4050, L100.0100, L500.4100, L501.9985 #### Laboratory [address] [place], [address] Hemoglobin (Bld) [Mass/Vol] 13.9 g/dL Normal 12.0-15.0 Comment on above: Performed By: #### L 501.5200, L5000.0012, L3300.0940, L501.9520, L503.6550, L500.4050, L100.0100, L500.4100, L501.9985 #### Laboratory [address] [facility] [place], [address] IG% 0.300 Normal 0.0-0.9 Comment on above: Result Comment: IG% - Immature Granulocytes (promyelocytes, myelocytes and metamyelocytes) > 1% indicates that a LEFT SHIFT is Present. Performed By: #### L 501.5200, L5000.0012, L3300.0940, L501.9520, L503.6550, L500.4050, L100.0100, L500.4100, L501.9985 #### Laboratory [address] [place], [address] Lymphocytes/100 WBC (Bld) 31.2 % Normal 19-41 Comment on above: Performed By: #### L 501.5200, L5000.0012, L3300.0940, L501.9520, L503.6550, L500.4050, L100.0100, L500.4100, L501.9985 #### Laboratory [address] [place], [address] MCH (RBC) [Entitic mass] 28.4 pg Normal 27.0-32.0 Comment on above: Performed By: #### L 501.5200, L5000.0012, L3300.0940, L501.9520, L503.6550, L500.4050, L100.0100, L500.4100, L501.9985 #### Laboratory [address] [place], [address] MCHC (RBC) [Mass/Vol] 31.9 g/dL Low 32-36 Comment on above: Performed By: #### L 501.5200, L5000.0012, L3300.0940, L501.9520, L503.6550, L500.4050, L100.0100, L500.4100, L501.9985 #### Laboratory [address] [place], [address] MCV (RBC) [Entitic vol] 89.2 fL Normal 81-99 Comment on above: Performed By: #### L 501.5200, L5000.0012, L3300.0940, L501.9520, L503.6550, L500.4050, L100.0100, L500.4100, L501.9985 #### Laboratory [address] [facility] [place], [address] Monocytes/100 WBC (Bld) 9.5 % Normal 0-10 Comment on above: Performed By: #### L 501.5200, L5000.0012, L3300.0940, L501.9520, L503.6550, L500.4050, L100.0100, L500.4100, L501.9985 #### Laboratory [address] [place], [address] Neutrophils/100 WBC (Bld) 52.5 % Normal 47-70 Comment on above: Performed By: #### L 501.5200, L5000.0012, L3300.0940, L501.9520, L503.6550, L500.4050, L100.0100, L500.4100, L501.9985 #### Laboratory [address] [place], [address] Nucleated RBC (Bld) [#/Vol] 0 10*3/uL Normal 0-5 Comment on above: Performed By: #### L 501.5200, L5000.0012, L3300.0940, L501.9520, L503.6550, L500.4050, L100.0100, L500.4100, L501.9985 #### Laboratory [address] [place], [address] ( Platelet mean volume (Bld) [Entitic vol] 11.8 fL Normal 6.2-12.0 Comment on above: Performed By: #### L 501.5200, L5000.0012, L3300.0940, L501.9520, L503.6550, L500.4050, L100.0100, L500.4100, L501.9985 #### Laboratory [address] [place], [address] Platelets (Bld) [#/Vol] 269 10*3/uL Normal 150-450 Comment on above: Performed By: #### L 501.5200, L5000.0012, L3300.0940, L501.9520, L503.6550, L500.4050, L100.0100, L500.4100, L501.9985 #### Laboratory [address] [place], [address] RBC (Bld) [#/Vol] 4.89 10*6/uL Normal 4.2-5.4 [facility] Comment on above: Performed By: #### L 501.5200, L5000.0012, L3300.0940, L501.9520, L503.6550, L500.4050, L100.0100, L500.4100, L501.9985 #### Laboratory [address] [place], [address] RDW SD 43.3 fl Normal 35.1-43.9 Comment on above: Performed By: #### L 501.5200, L5000.0012, L3300.0940, L501.9520, L503.6550, L500.4050, L100.0100, L500.4100, L501.9985 #### Laboratory [address] [place], [address] WBC (Bld) [#/Vol] 7.1 10*3/uL Normal 4.4-11.0 [facility] Comment on above: Performed By: #### L 501.5200, L5000.0012, L3300.0940, L501.9520, L503.6550, L500.4050, L100.0100, L500.4100, L501.9985 #### Laboratory [address] [place], [address] Comprehensive Metabolic Prof [facility] 08-25-2024 Albumin [Mass/Vol] 3.4 g/dL Normal 3.2-5.0 [facility] Comment on above: Performed By: #### L 501.5200, L5000.0012, L3300.0940, L501.9520, L503.6550, L500.4050, L100.0100, L500.4100, L501.9985 #### Laboratory [address] [place], [address] Albumin/Globulin [Mass ratio] 0.8 {ratio} Low 0.9-2.4 Comment on above: Performed By: #### L 501.5200, L5000.0012, L3300.0940, L501.9520, L503.6550, L500.4050, L100.0100, L500.4100, L501.9985 #### Laboratory [address] [place], [address] ALK P 66 U/L Normal 45-117 Comment on above: Performed By: #### L 501.5200, L5000.0012, L3300.0940, L501.9520, L503.6550, L500.4050, L100.0100, L500.4100, L501.9985 #### Laboratory [address] [place], [address] ALT [Catalytic activity/Vol] 26 U/L Normal 13-56 Comment on above: Performed By: #### L 501.5200, L5000.0012, L3300.0940, L501.9520, L503.6550, L500.4050, L100.0100, L500.4100, L501.9985 #### Laboratory [address] [place], [address] AST [Catalytic activity/Vol] 12 U/L Low 15-37 Comment on above: Performed By: #### L 501.5200, L5000.0012, L3300.0940, L501.9520, L503.6550, L500.4050, L100.0100, L500.4100, L501.9985 #### Laboratory [address] [place], [address] Bilirubin [Mass/Vol] 0.30 mg/dL Normal 0.20-1.00 Comment on above: Result Comment: For patients on eltrombopag therapy, use of Dimension [place] TBIL is not recommended. Performed By: #### L 501.5200, L5000.0012, L3300.0940, L501.9520, L503.6550, L500.4050, L100.0100, L500.4100, L501.9985 #### Laboratory [address] [place], [address] BUN/CRE 17.4 RATIO Normal 10-20 Comment on above: Performed By: #### L 501.5200, L5000.0012, L3300.0940, L501.9520, L503.6550, L500.4050, L100.0100, L500.4100, L501.9985 #### Laboratory [address] [place], [address] CA,Total 9.2 mg/dL Normal 8.5-10.1 Comment on above: Performed By: #### L 501.5200, L5000.0012, L3300.0940, L501.9520, L503.6550, L500.4050, L100.0100, L500.4100, L501.9985 #### Laboratory [address] [place], [address] Chloride [Moles/Vol] 110 mmol/L High 98-107 Comment on above: Performed By: #### L 501.5200, L5000.0012, L3300.0940, L501.9520, L503.6550, L500.4050, L100.0100, L500.4100, L501.9985 #### Laboratory [address] [place], [address] CO2 [Moles/Vol] 23.0 mmol/L Normal 21.0-32.0 Comment on above: Performed By: #### L 501.5200, L5000.0012, L3300.0940, L501.9520, L503.6550, L500.4050, L100.0100, L500.4100, L501.9985 #### Laboratory [address] [place], [address] Creatinine [Mass/Vol] 0.69 mg/dL Normal 0.55-1.02 Comment on above: Result Comment: The validity of the calculated GFR GFRAA in patients over 70 years has not been determined. Clinical correlation is essential. Performed By: #### L 501.5200, L5000.0012, L3300.0940, L501.9520, L503.6550, L500.4050, L100.0100, L500.4100, L501.9985 #### Laboratory [address] [place], [address] EST GFR - AA 123 mL/min Normal >60 Comment on above: Result Comment: Afri can Syrian GFR Calc Performed By: #### L 501.5200, L5000.0012, L3300.0940, L501.9520, L503.6550, L500.4050, L100.0100, L500.4100, L501.9985 #### Laboratory [address] [place], [place], [id number] GAP 6 Normal 5-15 Comment on above: Performed By: #### L 501.5200, L5000.0012, L3300.0940, L501.9520, L503.6550, L500.4050, L100.0100, L500.4100, L501.9985 #### Laboratory [address] [place], [place], [id number] GFR/1.73 sq M.predicted among non-blacks MDRD (S/P/Bld) [Vol rate/Area] 102 mL/min/{1.73_m2} Normal >60 Comment on above: Result Comment: Non- GFR Calc Performed By: #### L 501.5200, L5000.0012, L3300.0940, L501.9520, L503.6550, L500.4050, L100.0100, L500.4100, L501.9985 #### Laboratory [address] [place], [address] Globulin (S) [Mass/Vol] 4.0 g/dL Normal 2.2-4.2 Comment on above: Performed By: #### L 501.5200, L5000.0012, L3300.0940, L501.9520, L503.6550, L500.4050, L100.0100, L500.4100, L501.9985 #### Laboratory [address] [place], [address] Glucose [Mass/Vol] 74 mg/dL Normal 74-106 [facility] Comment on above: Performed By: #### L 501.5200, L5000.0012, L3300.0940, L501.9520, L503.6550, L500.4050, L100.0100, L500.4100, L501.9985 #### Laboratory [address] [place], [address] Potassium [Moles/Vol] 4.0 mmol/L Normal 3.5-5.1 Comment on above: Performed By: #### L 501.5200, L5000.0012, L3300.0940, L501.9520, L503.6550, L500.4050, L100.0100, L500.4100, L501.9985 #### Laboratory [address] [place], [address] Sodium [Moles/Vol] 139 mmol/L Normal 136-145 [facility] Comment on above: Performed By: #### L 501.5200, L5000.0012, L3300.0940, L501.9520, L503.6550, L500.4050, L100.0100, L500.4100, L501.9985 #### Laboratory [address] [place], [address] T PROT 7.4 g/dL Normal 6.4-8.2 Comment on above: Performed By: #### L 501.5200, L5000.0012, L3300.0940, L501.9520, L503.6550, L500.4050, L100.0100, L500.4100, L501.9985 #### Laboratory [address] [place], [address] Urea nitrogen [Mass/Vol] 12 mg/dL Normal 7-18 Comment on above: Performed By: #### L 501.5200, L5000.0012, L3300.0940, L501.9520, L503.6550, L500.4050, L100.0100, L500.4100, L501.9985 #### Laboratory [address] [facility] [place], [address] Ferritinon 08-25-2024 Ferritin [Mass/Vol] 50 ng/mL Normal 8-252 [facility] Comment on above: Performed By: #### L 501.5200, L5000.0012, L3300.0940, L501.9520, L503.6550, L500.4050, L100.0100, L500.4100, L501.9985 #### Laboratory [address] [facility] [place], [address] Hemoglobin A1con 08-25-2024 HbA1c (Bld) [Mass fraction] 5.5 % Normal 3.8-5.6 Comment on above: Result Comment: Norm al < 5.7 % Prediabetic 5.7 - 6.4 % Diabetic >or= 6.5 % Please note range changes. Performed By: #### L 501.5200, L5000.0012, L3300.0940, L501.9520, L503.6550, L500.4050, L100.0100, L500.4100, L501.9985 #### Laboratory [address] [place], [place], [id number] Lipid Profileon 08-25-2024 Cholesterol [Mass/Vol] 131 mg/dL Normal 200 Comment on above: Result Comment: <200 mg/dL Desirable 200-240 mg/dL Borderline >240 mg/dL High Risk Performed By: #### L 501.5200, L5000.0012, L3300.0940, L501.9520, L503.6550, L500.4050, L100.0100, L500.4100, L501.9985 #### Laboratory [address] [place], [address] Cholesterol in HDL [Mass/Vol] 57 mg/dL Normal Comment on above: Result Comment: The drugs N-Acetylcysteine and Metamizole may falsely depress this assay. Reference Range HDL <40 mg/dL Low HDL Cholesterol HDL >or= 60 mg/dL High HDL Cholesterol Performed By: #### L 501.5200, L5000.0012, L3300.0940, L501.9520, L503.6550, L500.4050, L100.0100, L500.4100, L501.9985 #### Laboratory [address] [place], [address] Cholesterol in LDL [Mass/Vol] 66 mg/dL Normal 0-130 Comment on above: Performed By: #### L 501.5200, L5000.0012, L3300.0940, L501.9520, L503.6550, L500.4050, L100.0100, L500.4100, L501.9985 #### Laboratory [address] [place], [address] Cholesterol in VLDL [Mass/Vol] 8 mg/dL Normal 5-40 Comment on above: Performed By: #### L 501.5200, L5000.0012, L3300.0940, L501.9520, L503.6550, L500.4050, L100.0100, L500.4100, L501.9985 #### Laboratory [address] [place], [place], [id number] Triglyceride [Mass/Vol] 39 mg/dL Normal Comment on above: Result Comment: The drugs N-Acetylcysteine and Metamizole may falsely depress this assay. Serum Triglycerides Reference Interval Normal <150 mg/dL Borderline high 150 - 199 mg/dL High 200 - 499 mg/dL Very High > or = 500 mg/dL Performed By: #### L 501.5200, L5000.0012, L3300.0940, L501.9520, L503.6550, L500.4050, L100.0100, L500.4100, L501.9985 #### Laboratory [address] [place], [place], [address] Magnesiumon 08-25-2024 Magnesium [Mass/Vol] 2.3 mg/dL Normal 1.6-2.6 Comment on above: Performed By: #### L 501.5200, L5000.0012, L3300.0940, L501.9520, L503.6550, L500.4050, L100.0100, L500.4100, L501.9985 #### Laboratory [address] [facility] [place] [place], [id number] Thyroid Stim Hormone (TSH)on 08-25-2024 TSH 2.270 uIU/mL Normal 0.358-3.740 Comment on above: Performed By: #### L 501.5200, L5000.0012, L3300.0940, L501.9520, L503.6550, L500.4050, L100.0100, L500.4100, L501.9985 #### Laboratory [address] [facility] [place], [place], [id number] CNOVon 07-22-2024 CNOV Office Visit ([facility] ) ----- DAKSHA DOS SANTOS ([id number]) 1985 F Date Time Provider Department 07/22/24 12:45 PM TANO BURNHAM [facility] During your visit today, we recorded the following information about you: Temperature Pulse Respiration Blood pressure 98.5 degrees 88/minute 18/minute 120/76 Weight 110 kg Tano Burnham APRN.CNP 07/22/2024 12:48 PM Signed CC: Patient presents with: Eye Problem: right redness, irritated and discharge x last night HPI: Daksha Dos Santos is a 39 year old female who presents to the office with complaint of eye redness and drainage since last night. Symptoms are staying the same. Associated symptoms includes woke up with crusting. Denies vision changes or eye pain Treatments tried include nothing so far. with no relief of symptoms. Sick contacts: unknown. History of asthma, frequent episodes of bronchitis, chronic bronchitis, bronchiectasis or COPD: No Smoker: No Seasonal/environmental allergies: No The ROS is otherwise negative. The patient's pmh, medications, allergies, and past visits are reviewed. PHYSICAL EXAM: BP 120/76 Pulse 88 Temp 36.9 ?C (98.5 ?F) Resp 18 Wt 110 kg (242 lb 8.1 oz) LMP 02/29/2024 SpO2 96% BMI 37.98 kg/m? General appearance: alert, cooperative, pleasant, in no acute distress Head: Normocephalic Eyes: EOM's intact, conjunctiva pink and moist, no icterus, sclera white, non-injected on left and right has mild erythema noted. PAST MEDICAL HISTORY No date: NEGATIVE MEDICAL HISTORY No past surgical history on file. ALLERGIES Patient has no known allergies. MEDICATIONS ibuprofen (MOTRIN) 600 mg tablet Take 1 tablet by mouth every 6 hours as needed for pain. albuterol HFA (PROAIR HFA) 90 mcg/actuation inhaler Inhale 2 Puffs as instructed every 6 hours as needed. albuterol HFA (PROAIR HFA) 90 mcg/actuation inhaler Inhale 2 Puffs as instructed every 4 hours as needed. ibuprofen (MOTRIN) 800 mg tablet Take 1 tablet by mouth every 8 hours as needed for Pain. acetaminophen (TYLENOL) 500 mg tablet Take 1 tablet by mouth every 8 hours as needed. trimethoprim-polymyxin (POLYTRIM) 10,000 unit- 1 mg/mL ophthalmic solution Use 1 Drop in the right eye every 4 hours for 7 days. No family history on file. Social History Tobacco Use Smoking status: Former Types: Cigarettes Passive exposure: Current Smokeless tobacco: Never Substance Use Topics Alcohol use: No Drug use: No ASSESSMENT/PLAN: 1. [place] eye disease of right eye - ICD9: 372.03, ICD10: H10.021 - POLYMYXIN B SULFATE 10,000 UNIT-TRIMETHOPRIM 1 MG/ML EYE DROPS Prescription instructions reviewed with patient as applicable. Potential red flag symptoms discussed with the patient. Reviewed appropriate action plan to take if red flag symptoms occur. Patient agreeable to treatment plan. Will follow up with eye dr if anything changes Tano Burnham APRN.TAKE UP OPERATOR Allergies As of Date: 07/22/2024 (No Known Allergies) Date Reviewed: 07/22/2024 Reviewed by: Lesli Pittman MA - Fully Assessed Reason for Visit: Eye Problem [43] Cmt: right redness, irritated and discharge x last night Primary Visit Diagnosis:[place] eye disease of right eye [H10.021] Order(s):trimethoprim-jonny ymyxin (POLYTRIM) 10,000 unit- 1 mg/mL ophthalmic solutionUse 1 Drop in the right eye every 4 hours for 7 days.Disp: 10 mLRfl: 0 Prescriptions as of 07/22/2024 - trimethoprim-polymyxin (POLYTRIM) 10,000 unit- 1 mg/mL ophthalmic solution Use 1 Drop in the right eye every 4 hours for 7 days. - ibuprofen (MOTRIN) 600 mg tablet Take 1 tablet by mouth every 6 hours as needed for pain. - albuterol HFA (PROAIR HFA) 90 mcg/actuation inhaler Inhale 2 Puffs as instructed every 6 hours as needed. - albuterol HFA (PROAIR HFA) 90 mcg/actuation inhaler Inhale 2 Puffs as instructed every 4 hours as needed. - ibuprofen (MOTRIN) 800 mg tablet Take 1 tablet by mouth every 8 hours as needed for Pain. - acetaminophen (TYLENOL) 500 mg tablet Take 1 tablet by mouth every 8 hours as needed. Problem List As Of Date: 07/22/2024 (None) Prescriptions ordered this encounter Disp Refills Start End POLYMYXIN B SULFATE 10,000 UNIT-TRIM* 10 mL 0 07/22/2024 07/29/2024 Route: RIGHT EYE Sig: Use 1 Drop in the right eye every 4 hours for 7 days. Encounter Status:Closed by TANO BURNHAM on 07/22/24 [facility] 07-07-2024 [facility] Telephone ([facility]) ----- DAKSHA DOS SANTOS ([id number]) 1985 F Date Time Provider Department 07/07/24 BLADIMIR DIAS [facility] During your visit today, we recorded the following information about you: Bladimir Dias, SELENA 07/07/2024 7:13 AM Signed Please let patient know she tested positive for COVID-19. Supportive treatment at home. Isolate until 24 hours fever free and symptoms improving Allison Franklin LPN 07/07/2024 8:44 AM Signed Patient notified.Allison Franklin LPN Allergies As of Date: 07/07/2024 (No Known Allergies) Date Reviewed: 07/06/2024 Reviewed by: Lesli Pittman MA - Fully Assessed Reason for Visit: Results [95] Prescriptions as of 07/07/2024 - ibuprofen (MOTRIN) 600 mg tablet Take 1 tablet by mouth every 6 hours as needed for pain. - albuterol HFA (PROAIR HFA) 90 mcg/actuation inhaler Inhale 2 Puffs as instructed every 6 hours as needed. - albuterol HFA (PROAIR HFA) 90 mcg/actuation inhaler Inhale 2 Puffs as instructed every 4 hours as needed. - ibuprofen (MOTRIN) 800 mg tablet Take 1 tablet by mouth every 8 hours as needed for Pain. - acetaminophen (TYLENOL) 500 mg tablet Take 1 tablet by mouth every 8 hours as needed. Problem List As Of Date: 07/07/2024 (None) Encounter Status:Closed by ALLISON FRANKLIN on 07/07/24 Normal [facility] [facility] CNOV Office Visit ([facility] ) ----- DAKSHA DOS SANTOS ([id number]) 1985 F Date Time Provider Department 07/06/24 4:45 PM LUCRECIA ARREGUIN [facility] During your visit today, we recorded the following information about you: Temperature Pulse Respiration Blood pressure 98.6 degrees 86/minute 16/minute 116/64 Weight 111.1 kg Lucrecia Arreguin APRN.TAKE UP OPERATOR 07/06/2024 5:15 PM Signed This note was created using NoteWriter. Subjective Daksha Dos Santos is a 39 year old female. 39 year old female with no significant PMH presents for illness. Acute onset yesterday +fever +fatigue +headache +body aches +cough Denies emesis Denies diarrhea Denies SOB Denies dyspnea. 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 No vendor analyst was used. URI She complains of cough. There is no chest tightness, difficulty breathing, frequent throat clearing, hemoptysis, hoarse voice, shortness of breath, sputum production or wheezing. This is a new problem. The current episode started yesterday. The problem occurs constantly. The problem has been gradually worsening. The cough is non-productive. Associated symptoms include appetite change, a fever, headaches, malaise/fatigue, myalgias, nasal congestion, postnasal drip, rhinorrhea and sneezing. Pertinent negatives include no chest pain, dyspnea on exertion, ear congestion, ear pain, heartburn, orthopnea, PND, sore throat, sweats, trouble swallowing or weight loss. Her symptoms are aggravated by nothing. Her symptoms are alleviated by nothing. She reports no improvement on treatment. There are no known risk factors for lung disease. There is no history of asthma, bronchiectasis, bronchitis, COPD, emphysema or pneumonia. PAST MEDICAL HISTORY No date: NEGATIVE MEDICAL HISTORY No past surgical history on file. ALLERGIES Patient has no known allergies. MEDICATIONS albuterol HFA (PROAIR HFA) 90 mcg/actuation inhaler Inhale 2 Puffs as instructed every 6 hours as needed. albuterol HFA (PROAIR HFA) 90 mcg/actuation inhaler Inhale 2 Puffs as instructed every 4 hours as needed. ibuprofen (MOTRIN) 800 mg tablet Take 1 tablet by mouth every 8 hours as needed for Pain. acetaminophen (TYLENOL) 500 mg tablet Take 1 tablet by mouth every 8 hours as needed. ibuprofen (MOTRIN) 600 mg tablet Take 1 tablet by mouth every 6 hours as needed for pain. No family history on file. Social History Tobacco Use Smoking status: Former Types: Cigarettes Passive exposure: Current Smokeless tobacco: Never Substance Use Topics Alcohol use: No Drug use: No Review of Systems Constitutional: Positive for appetite change, fatigue, fever and malaise/fatigue. Negative for weight loss. HENT: Positive for postnasal drip, rhinorrhea and sneezing. Negative for ear pain, hoarse voice, sore throat and trouble swallowing. Respiratory: Positive for cough. Negative for apnea, hemoptysis, sputum production, choking, chest tightness, shortness of breath and wheezing. Cardiovascular: Negative for chest pain, dyspnea on exertion and PND. Gastrointestinal: Negative for abdominal pain, diarrhea, heartburn, nausea and vomiting. Musculoskeletal: Positive for myalgias. Skin: Negative for color change, pallor and rash. Neurological: Positive for headaches. Negative for dizziness and facial asymmetry. Hematological: Negative for adenopathy. Does not bruise/bleed easily. Objective BP 116/64 Pulse 86 Temp 37 ?C (98.6 ?F) Resp 16 Wt 111.1 kg (244 lb 14.9 oz) LMP 02/29/2024 SpO2 96% BMI 38.36 kg/m? Physical Exam Vitals and nursing note reviewed. Constitutional: General: She is not in acute distress. Appearance: Normal appearance. She is normal weight. She is not ill-appearing, toxic-appearing or diaphoretic. HENT: Head: Normocephalic and atraumatic. Right Ear: Ear canal and external ear normal. Left Ear: Ear canal and external ear normal. Nose: Congestion present. No rhinorrhea. Mouth/Throat: Mouth: Mucous membranes are moist. Pharynx: Posterior oropharyngeal erythema present. No oropharyngeal exudate. Eyes: General: Right eye: No discharge. Left eye: No discharge. Extraocular Movements: Extraocular movements intact. Conjunctiva/sclera: Conjunctivae normal. Pupils: Pupils are equal, round, and reactive to light. Cardiovascular: Rate and Rhythm: Normal rate and regular rhythm. Pulses: Normal pulses. Heart sounds: Normal heart sounds. No murmur heard. No friction rub. Pulmonary: Effort: Pulmonary effort is normal. No respiratory distress. Breath sounds: Normal breath sounds. No stridor. No wheezing, rhonchi or rales. Chest: Chest wall: No tenderness. Abdominal: General: Abdomen is flat. There is no distension. Palpations: A (more content not included)... Normal [facility] COVID AND INFLUENZA A/B AND RSV NAAT, ROUTINEon 07-06-2024 SARS-CoV-2 (COVID-19) RNA JEAN+probe Ql (Unsp spec) COVID 19 RESULT: Detected The method used is RT-PCR or an equivalent NAAT method. Reference Range (the expected result in uninfected individuals): Not detected INFLUENZA A PCR: Not detected INFLUENZA B PCR: Not detected RSV PCR: Not detected Abnormal [facility] Comment on above: Performed By: #### C VFS ####[facility] LABCLIA [id number] [address] [place] CNOVon 04-24-2024 CNOV Office Visit ([facility] ) ----- DAKSHA DOS SANTOS ([id number]) 1985 F Date Time Provider Department 04/24/24 12:30 PM NANDO NÚÑEZ [facility] During your visit today, we recorded the following information about you: Temperature Pulse Respiration Blood pressure 97.4 degrees 71/minute 16/minute 148/76 Weight 116.5 kg Nando Núñez APRN.CNP 04/24/2024 1:27 PM Signed Subjective HPI HPI Daksha Dos Santos is a 38 year old female who presents today for CC of left neck pain after sleeping. This started 5 days ago. Has tried nothing for relief. Symptoms are worsened by rom of neck/shoulder. Denies injury. Denies rash. Vomiting 3 days ago/not recently. Denies possibility of being . .Patient presents with: Neck Pain: Left shoulder/neck/back pain since Mon and getting worse. 0 injuries known PAST MEDICAL HISTORY Diagnosis Date NEGATIVE MEDICAL HISTORY No past surgical history on file. ALLERGIES Patient has no known allergies. MEDICATIONS albuterol HFA (PROAIR HFA) 90 mcg/actuation inhaler Inhale 2 Puffs as instructed every 6 hours as needed. albuterol HFA (PROAIR HFA) 90 mcg/actuation inhaler Inhale 2 Puffs as instructed every 4 hours as needed. ibuprofen (MOTRIN) 800 mg tablet Take 1 tablet by mouth every 8 hours as needed for Pain. acetaminophen (TYLENOL) 500 mg tablet Take 1 tablet by mouth every 8 hours as needed. No family history on file. Social History Tobacco Use Smoking status: Former Types: Cigarettes Passive exposure: Current Smokeless tobacco: Never Substance Use Topics Alcohol use: No Drug use: No ROS Objective Blood pressure 148/76, pulse 71, temperature 36.3 ?C (97.4 ?F), resp. rate 16, weight 116.5 kg (256 lb 13.4 oz), last menstrual period 02/29/2024, SpO2 97%. Physical Exam Constitutional: General: She is not in acute distress. Appearance: Normal appearance. She is not toxic-appearing or diaphoretic. HENT: Head: Normocephalic and atraumatic. Cardiovascular: Rate and Rhythm: Normal rate and regular rhythm. Heart sounds: Normal heart sounds, S1 normal and S2 normal. Pulmonary: Effort: Pulmonary effort is normal. Breath sounds: Normal breath sounds. Abdominal: General: Bowel sounds are normal. Palpations: Abdomen is soft. Tenderness: There is no abdominal tenderness. Musculoskeletal: Back: Skin: General: Skin is warm and dry. Neurological: Mental Status: She is alert and oriented to person, place, and time. Gait: Gait is intact. ASSESSMENT/PLAN: 1. Neck pain - ICD9: 723.1, ICD10: M54.2 -use medication as prescribed -follow up if symptoms persist, worsen, change - PREDNISONE 10 MG TABLET Nando Núñez APRN.TAKE UP OPERATOR Allergies As of Date: 04/24/2024 (No Known Allergies) Date Reviewed: 04/24/2024 Reviewed by: Doris Nguyen - Fully Assessed Reason for Visit: Neck Pain [135] Cmt: Left shoulder/neck/back pain since Sat and getting worse. 0 injuries known Primary Visit Diagnosis:Neck pain [M54.2] Order(s):predniSONE (DELTASONE) 10 mg tabletTake 4 tabs daily for 3 days, then 2 tabs daily for 3 days, then 1 tab daily for 3 days with food.Disp: 21 tabletRfl: 0 Prescriptions as of 04/24/2024 - predniSONE (DELTASONE) 10 mg tablet Take 4 tabs daily for 3 days, then 2 tabs daily for 3 days, then 1 tab daily for 3 days with food. - albuterol HFA (PROAIR HFA) 90 mcg/actuation inhaler Inhale 2 Puffs as instructed every 6 hours as needed. - albuterol HFA (PROAIR HFA) 90 mcg/actuation inhaler Inhale 2 Puffs as instructed every 4 hours as needed. - ibuprofen (MOTRIN) 800 mg tablet Take 1 tablet by mouth every 8 hours as needed for Pain. - acetaminophen (TYLENOL) 500 mg tablet Take 1 tablet by mouth every 8 hours as needed. Problem List As Of Date: 04/24/2024 (None) Prescriptions ordered this encounter Disp Refills Start End PREDNISONE 10 MG TABLET 21 t* 0 04/24/2024 05/03/2024 Sig: Take 4 tabs daily for 3 days, then 2 tabs daily for 3 days, then 1 tab daily for 3 days with food. Encounter Status:Closed by NANDO NÚÑEZ on 04/24/24 Normal [facility] CNOVon 04-11-2024 CNOV Office Visit ([facility] ) ----- DAKSHA DOS SANTOS ([id number]) 1985 F Date Time Provider Department 04/11/24 10:15 AM TANO BURNHAM [facility] During your visit today, we recorded the following information about you: Temperature Pulse Respiration Blood pressure 98.3 degrees 88/minute 16/minute 140/76 Weight Last Period 116.4 kg 02/29/24 Tano Burnham APRN.TAKE UP OPERATOR 04/11/2024 10:41 AM Signed Subjective She came in with complaints of left upper tooth pain and right ear pain. Patient says she finished antibiotics for tooth infection a little over a week ago it was amoxicillin. Patient denies any fever chills nausea vomiting. Patient denies any other symptoms. The history is provided by the patient. No vendor analyst was used. Ear Pain Review of Systems Constitutional: Negative. Skin: Negative. Objective Physical Exam Constitutional: Appearance: Normal appearance. HENT: Right Ear: Hearing, tympanic membrane, ear canal and external ear normal. Left Ear: Hearing, tympanic membrane, ear canal and external ear normal. Mouth/Throat: Comments: Patient has significant dental caries. Patient has pain in the area marked above. Mild amount of swelling and erythema noted no drainage noted. Pulmonary: Effort: Pulmonary effort is normal. Neurological: Mental Status: She is alert. PAST MEDICAL HISTORY Diagnosis Date NEGATIVE MEDICAL HISTORY No past surgical history on file. ALLERGIES Patient has no known allergies. MEDICATIONS albuterol HFA (PROAIR HFA) 90 mcg/actuation inhaler Inhale 2 Puffs as instructed every 6 hours as needed. albuterol HFA (PROAIR HFA) 90 mcg/actuation inhaler Inhale 2 Puffs as instructed every 4 hours as needed. ibuprofen (MOTRIN) 800 mg tablet Take 1 tablet by mouth every 8 hours as needed for Pain. acetaminophen (TYLENOL) 500 mg tablet Take 1 tablet by mouth every 8 hours as needed. amoxicillin-clavulanate potassium (AUGMENTIN) 875-125 mg per tablet Take 1 tablet by mouth two times a day for 7 days. No family history on file. Social History Tobacco Use Smoking status: Former Types: Cigarettes Passive exposure: Current Smokeless tobacco: Never Substance Use Topics Alcohol use: No Drug use: No ASSESSMENT/PLAN: 1. Pain, dental - ICD9: 525.9, ICD10: K08.89 - AMOXICILLIN 875 MG-POTASSIUM CLAVULANATE 125 MG TABLET Was educated about proper use of medication and supportive therapies. Patient was educated about red flag symptoms to watch for. Patient has a follow-up appointment with her dentist. Patient was okay with this care plan. Tano Burnham APRN.TAKE UP OPERATOR Allergies As of Date: 04/11/2024 (No Known Allergies) Date Reviewed: 04/11/2024 Reviewed by: Doris Nguyen - Fully Assessed Reason for Visit: Ear Pain [817] Cmt: Right ear pain x3 days Primary Visit Diagnosis:Pain, dental [K08.89] Order(s):amoxicillin-clav ulanate potassium (AUGMENTIN) 875-125 mg per tabletTake 1 tablet by mouth two times a day for 7 days.Disp: 14 tabletRfl: 0 Prescriptions as of 04/11/2024 - amoxicillin-clavulanate potassium (AUGMENTIN) 875-125 mg per tablet Take 1 tablet by mouth two times a day for 7 days. - albuterol HFA (PROAIR HFA) 90 mcg/actuation inhaler Inhale 2 Puffs as instructed every 6 hours as needed. - albuterol HFA (PROAIR HFA) 90 mcg/actuation inhaler Inhale 2 Puffs as instructed every 4 hours as needed. - ibuprofen (MOTRIN) 800 mg tablet Take 1 tablet by mouth every 8 hours as needed for Pain. - acetaminophen (TYLENOL) 500 mg tablet Take 1 tablet by mouth every 8 hours as needed. Problem List As Of Date: 04/11/2024 (None) Prescriptions ordered this encounter Disp Refills Start End AMOXICILLIN 875 MG-POTASSIUM CLAVULA* 14 t* 0 04/11/2024 04/18/2024 Route: ORAL Sig: Take 1 tablet by mouth two times a day for 7 days. Letter Text Encounter Status:Closed by TANO BURNHAM on 04/11/24 [facility] Views and Kimber st PAon 08-09-2023 IMPRESSION: No acute radiographic abnormality. Program Rep: RICH Transcribe Date/Time: Aug 09 2023 11:40A Dictated by : CAESAR REBOLLEDO MD This examination was interpreted and the report reviewed and electronically signed by: CAESAR REBOLLEDO MD on Aug 09 2023 11:42AM EST DIVISION OF RADIOLOGY * * *Final Report* * * DATE OF EXAM: Aug 09 2023 11:21AM WOX [id number] - XR RIB/CHST 3V AP RIB/OBL/CHST L / PROCEDURE REASON: Rib pain * * * * Physician Interpretation * * * * EXAMINATION: X-ray chest and left ribs Clinical History: Rib pain M: XC1_4 Comparison: Chest x-ray 07/29/2023 RESULT: Lines, tubes, and devices: None. Lungs and pleura: No consolidation. No lung mass. No pleural effusion. Cardiomediastinal silhouette: Normal cardiomediastinal silhouette. Musculoskeletal: No acute fracture DIVISION OF RADIOLOGY Provider, [facility] - 08/09/2023 * * *Final Report* * * DATE OF EXAM: Aug 09 2023 11:21AM WOX [id number] - XR RIB/CHST 3V AP RIB/OBL/CHST L / PROCEDURE REASON: Rib pain * * * * Physician Interpretation * * * * EXAMINATION: X-ray chest and left ribs Clinical History: Rib pain M: XC1_4 Comparison: Chest x-ray 07/29/2023 RESULT: Lines, tubes, and devices: None. Lungs and pleura: No consolidation. No lung mass. No pleural effusion. Cardiomediastinal silhouette: Normal cardiomediastinal silhouette. Musculoskeletal: No acute fracture IMPRESSION IMPRESSION: No acute radiographic abnormality. Program Rep: [facility] Transcribe Date/Time: Aug 09 2023 11:40A Dictated by : CAESAR REBOLLEDO MD This examination was interpreted and the report reviewed and electronically signed by: CAESAR REBOLLEDO MD on Aug 09 2023 11:42AM EST Radiology Study observation (narrative) [facility] XR Ribs - left Views and Kimber st PAOrdered By: Ccf Provider on 08-09-2023 [facility] XR CHEST 2V FRONTAL/LATon XR Chest PA and Lateralon IMPRESSION: No acute radiographic abnormality. Program Rep: RICH Transcribe Date/Time: Jul 29 2023 2:03P Dictated by : YUKO FOWLER MD This examination was interpreted and the report reviewed and electronically signed by: YUKO FOWLER MD on Jul 29 2023 2:04PM [facility] DIVISION OF RADIOLOGY * * *Final Report* * * DATE OF EXAM: Jul 29 2023 11:49AM WOX [id number] - XR CHEST 2V FRONTAL/LAT / PROCEDURE REASON: multiple diagnoses * * * * Physician Interpretation * * * * EXAMINATION: CHEST RADIOGRAPH (2 VIEW FRONTAL & LATERAL) CLINICAL HISTORY: Subacute cough Rib pain on left side MQ: XC2_6 EXAM DATE/TIME: 07/29/2023 11:49 AM COMPARISON: No relevant prior studies available. RESULT: Lines, tubes, and devices: None. Lungs and pleura: No consolidation. No lung mass. No pleural effusion. No pneumothorax. Cardiomediastinal silhouette: Normal cardiomediastinal silhouette. Bones and soft tissues: Unremarkable. DIVISION OF RADIOLOGY Provider, [facility] - 07/29/2023 * * *Final Report* * * DATE OF EXAM: Jul 29 2023 11:49AM WOX [id number] - XR CHEST 2V FRONTAL/LAT / PROCEDURE REASON: multiple diagnoses * * * * Physician Interpretation * * * * EXAMINATION: CHEST RADIOGRAPH (2 VIEW FRONTAL & LATERAL) CLINICAL HISTORY: Subacute cough Rib pain on left side MQ: XC2_6 EXAM DATE/TIME: 07/29/2023 11:49 AM COMPARISON: No relevant prior studies available. RESULT: Lines, tubes, and devices: None. Lungs and pleura: No consolidation. No lung mass. No pleural effusion. No pneumothorax. Cardiomediastinal silhouette: Normal cardiomediastinal silhouette. Bones and soft tissues: Unremarkable. IMPRESSION IMPRESSION: No acute radiographic abnormality. Program Rep: RICH Transcribe Date/Time: Jul 29 2023 2:03P Dictated by : YUKO FOWLER MD This examination was interpreted and the report reviewed and electronically signed by: YUKO FOWLER MD on Jul 29 2023 2:04PM EST [facility] Radiology Study observation (narrative) XR Chest PA and LateralOrder ed By: Ccf Provider on 07-29-2023 CBC and Differentialon 09-16 Abs Baso <0.03 Normal <0.11 [facility] Comment on above: Performed By: #### C MP, CBCDIF ####[place] [id number] Abs Castro 0.53 k/uL Normal <0.87 [facility] Comment on above: Performed By: #### C MP, CBCDIF ####[place] [phone] Abs Neut 13.25 k/uL High 1.45-7.50 [facility] Comment on above: Performed By: #### C MP, CBCDIF ####[place] [id number] Basophils/100 WBC Auto (Bld) 0.1 % Normal [facility] Comment on above: Performed By: #### C MP, CBCDIF ####[place] [phone] Eosinophils 10*3/uL Normal <0.46 [facility] Comment on above: Performed By: #### C MP, CBCDIF ####[place] [phone] Eosinophils/100 leukocytes 0.0 % Normal [facility] Comment on above: Performed By: #### C MP, CBCDIF ####[place] [id number] Erythrocyte distribution width Auto Ratio (RBC) 12.9 % Normal 11.5-15.0 [facility] Comment on above: Performed By: #### C MP, CBCDIF ####[place] [id number] Erythrocytes (RBC) 5.07 10*6/uL Normal 3.90-5.20 [facility] Comment on above: Performed By: #### C MP, CBCDIF ####[address] [phone] Erythrocytes (RBC) 0.0 /100 WBC Normal 0 [facility] Comment on above: Performed By: #### C MP, CBCDIF ####[place] [phone] Hematocrit (HCT) 44.9 % Normal 36.0-46.0 [facility] Comment on above: Performed By: #### C MP, CBCDIF ####[place] [phone] Hemoglobin mass conc (Bld) 14.6 g/dL Normal 11.5-15.5 [facility] Comment on above: Performed By: #### C MP, CBCDIF ####[place] [phone] Lymphocytes 0.73 10*3/uL Low 1.00-4.00 [facility] Comment on above: Performed By: #### C MP, CBCDIF ####[place] [phone] Lymphocytes/100 leukocytes 5.0 % Normal [facility] Comment on above: Performed By: #### C MP, CBCDIF ####[place] [phone] MCH 28.8 pG Normal 26.0-34.0 [facility] Comment on above: Performed By: #### C MP, CBCDIF ####[place] [phone] MCHC mass conc (RBC) 32.5 g/dL Normal 30.5-36.0 [facility] Comment on above: Performed By: #### C MP, CBCDIF ####[place] [phone] MCV 88.6 fL Normal 80.0-100.0 [facility] Comment on above: Performed By: #### C MP, CBCDIF ####[place] [phone] Monocytes/100 leukocytes 3.6 % Normal [facility] Comment on above: Performed By: #### C MP, CBCDIF ####[address] Neutrophils/100 WBC Auto (Bld) 91.3 % Normal [facility] Comment on above: Performed By: #### C MP, CBCDIF ####[place] [phone] Platelet mean volume (PMV) 11.4 fL Normal 9.0-12.7 [facility] Comment on above: Performed By: #### C MP, CBCDIF ####[place] [phone] Platelets 228 10*3/uL Normal 150-400 [facility] Comment on above: Performed By: #### C MP, CBCDIF ####[address] WBC (Leukocytes) 14.53 10*3/uL High 3.70-11.00 [facility] Comment on above: Performed By: #### C MP, CBCDIF ####[place] [phone] Comp Metabolic Panelon 09-16 Alanine aminotransferase (ALT) 10 U/L Normal 7-38 [facility] Comment on above: Performed By: #### C MP, CBCDIF ####[place] [phone] Albumin 4.1 g/dL Normal 3.9-4.9 [facility] Comment on above: Performed By: #### C MP, CBCDIF ####[place] [phone] Alkaline phosphatase (ALP) 61 U/L Normal 32-117 [facility] Comment on above: Performed By: #### C MP, CBCDIF ####[address] Anion gap 10 mmol/L Normal 9-18 [facility] Comment on above: Performed By: #### C MP, CBCDIF ####[place] [phone] Aspartate aminotransferase (AST) 12 U/L Low 13-35 [facility] Comment on above: Performed By: #### C MP, CBCDIF ####[place] [phone] Bilirubin (total) 0.5 mg/dL Normal 0.2-1.3 [facility] Comment on above: Performed By: #### C MP, CBCDIF ####[place] [phone] Calcium 9.0 mg/dL Normal 8.5-10.2 [facility] Comment on above: Performed By: #### C ANEESH, CBCDIF ####[place] [phone] Chloride 95 mmol/L Low 97-105 [facility] Comment on above: Performed By: #### C ANEESH, CBCDIF ####[place] [phone] CO2 28 mmol/L Normal 22-30 [facility] Comment on above: Performed By: #### C MP, CBCDIF ####[place] [phone] Creatinine 0.65 mg/dL Normal 0.58-0.96 [facility] Comment on above: Performed By: #### C MP, CBCDIF ####[place] [phone] eGFR (non-black) mL/min/{1.73_m2} Normal >60 [facility] Comment on above: Performed By: #### C MP, CBCDIF ####[place] [phone] Glucose mass conc 117 mg/dL High 74-99 [facility] Comment on above: Performed By: #### C MP, CBCDIF ####[place] [phone] Potassium molar conc 3.9 mmol/L Normal 3.7-5.1 [facility] Comment on above: Performed By: #### C MP, CBCDIF ####[facility] Protein 7.5 g/dL Normal 6.3-8.0 [facility] Comment on above: Performed By: #### C MP, CBCDIF ####[address] Sodium 133 mmol/L Low 136-144 [facility] Comment on above: Performed By: #### C MP, CBCDIF ####[place] [phone] Urea nitrogen 9 mg/dL Normal 7-21 [facility] Comment on above: Performed By: #### C MP, CBCDIF ####[address] ED NOTEon 09-16-2017 ED NOTE HNO ID: [id number] Author: Vandana (Rn) MARTIN Pompa Service: (none) Author Type: Registered Nurse Type: ED Notes Filed: 09/16/2017 12:02 AM Note Text: Pt resting in bed. Safety precautions maintained, call keller within reach. Will continue to monitor [facility] INR Coag RelTime (Bld) HNO ID: [id number]: Vandana (Rn) DONIS Pompaervice: (none)Author Type: Registered NurseType: ED NotesFiled: 09/16/2017 12:33 AMNote Text:Pt discharged in stable condition. PT verbalized understanding ofdischarge instructions, follow up and medication [facility] ED NOTE HNO ID: [id number] Author: Ruthie MiguelRn) Suzanne, RN Service: (none) Author Type: Registered Nurse Type: ED Notes Filed: 09/15/2017 11:17 PM Note Text: Add on called to lab. [facility] ED NOTE HNO ID: [id number] Author: Anders (MedicChuck Mckee Service: (none) Author Type: Central Office Equipment Engineer and Metallurgical Laboratory Assistant Type: ED Notes Filed: 09/15/2017 11:10 PM Note Text: Urine specimen obtained and sent. [facility] ED NOTE HNO ID: [id number] Author: Vandana MiguelRn) MARTIN Pompa Service: (none) Author Type: Registered Nurse Type: ED Notes Filed: 09/15/2017 11:23 PM Note Text: Pt resting in bed. Safety precautions maintained, call keller within reach. Will continue to monitor [facility] ED NOTE HNO ID: [id number] Author: Vandana MiguelRn) MARTIN Pompa Service: (none) Author Type: Registered Nurse Type: ED Notes Filed: 09/15/2017 10:24 PM Note Text: Pt medicated per mar. Education provided, no questions asked [facility] ED NOTE HNO ID: [id number] Author: Vandana Pizano) MARTIN Pompa Service: (none) Author Type: Registered Nurse Type: ED Notes Filed: 09/15/2017 11:24 PM Note Text: Pt resting in bed. Safety precautions maintained, call keller within reach. Will continue to monitor [facility] HCG Qual, Urineon 09-16-2017 HCG.beta subunit ( test) Ql (U) Negative [facility] Comment on above: Performed By: #### U HCG, UAWMIC ####[place] [id number] Castro Slide Teston 09-16-2017 Castro Slide Test Negative Normal NEGATIVE screen for [facility] Comment on above: Performed By: #### M ONOLX ####[place] [phone] Urinalysis with Microscopico n 09-16-2017 Amorphous Crystal Moderate [facility] Comment on above: Performed By: #### U HCG, UAWMIC ####[place] [phone] Bilirubin, Urine Negative [facility] Comment on above: Performed By: #### U HCG, UAWMIC ####[place] [phone] Cast SEE COMMENT Normal [address] [facility] Comment on above: Result Comment: 0 Performed By: #### U HCG, UAWMIC ####[place] [phone] Erythrocytes (RBC) 0-3 Normal 0-3 [facility] Comment on above: Performed By: #### U HCG, UAWMIC ####[place] [phone] Hemoglobin mass conc (Bld) Negative Normal Negative [facility] Comment on above: Performed By: #### U HCG, UAWMIC ####[place] [phone] Leukest Negative Normal Negative [facility] Comment on above: Performed By: #### U HCG, UAWMIC ####[place] [phone] pH of blood 8.5 [pH] High 4.5-8.0 [facility] Comment on above: Performed By: #### U HCG, UAWMIC ####[place] [phone] Protein, Urine Trace Critically abnormal Negative [facility] Comment on above: Performed By: #### U HCG, UAWMIC ####[place] [phone] Specific [place], Ur 1.015 Normal 1.005-1.030 [facility] Comment on above: Performed By: #### U HCG, UAWMIC ####[place] [phone] Urine, clarity Hazy Critically abnormal Clear [facility] Comment on above: Performed By: #### U HCG, UAWMIC ####[place] [phone] Urine, color Yellow Normal Yellow [facility] Comment on above: Performed By: #### U HCG, UAWMIC ####[place] [phone] Urine, epithelial cells in sediment SEE COMMENT Normal [facility] Comment on above: Result Comment: 5-10 Squamous Performed By: #### U HCG, UAWMIC ####[place] [phone] Urine, glucose presence Negative Normal [facility] Comment on above: Performed By: #### U HCG, UAWMIC ####[place] [phone] Urine, ketones presence Negative Normal [facility] Comment on above: Performed By: #### U HCG, UAWMIC ####[place] [phone] Urine, mucus presence in sediment Moderate [facility] Comment on above: Performed By: #### U HCG, UAWMIC ####[place] [phone] Urine, nitrite presence Negative [facility] Comment on above: Performed By: #### U HCG, UAWMIC ####[place] [phone] Urine, urobilinogen 2.0 High 0.2-1.0 [facility] Comment on above: Performed By: #### U HCG, UAWMIC ####[place] [phone] WBC (Leukocytes) 0-5 Normal 0-5 [facility] Comment on above: Performed By: #### U HCG, UAWMIC ####[place] [phone] ED NOTEon 09-15-2017 ED NOTE HNO ID: [id number] Author: Rhonda MiguelRn) Florencio RN Service: Emergency Medicine Author Type: Registered Nurse Type: ED Notes Filed: 09/15/2017 9:35 PM Note Text: Flu swab obtained and sent. [facility] ED NOTE HNO ID: [id number] thor: Rhonda MiguelRn) DONIS Matiaservice: Emergency MedicineAuthor Type: Registered NurseType: ED NotesFiled: 09/15/2017 9:34 PMNote Text:Pt presents to the ED with complaints of a sore throat, fever, chills,body aches since this AM. Patient has not taken any medications at home.Patient denies cough. [facility] ED NOTE HNO ID: [id number] Author: Ruthie (Rn) MARTIN Palacios Service: (none) Author Type: Registered Nurse Type: ED Notes Filed: 09/15/2017 9:28 PM Note Text: Bed: ED-14 Expected date: Expected time: Means of arrival: Comments: [email or web address] [facility] ED PROV NOTEon 09-15-2017 ED PROV NOTE HNO ID: [id number] thor: Bernardo (Selena) Norman: (none)Author Type: Physician AssistantType: ED Provider NotesFiled: 09/16/2017 12:25 AMNote Text:ED Provider NotePatient Name: Daksha Dos SantosMRN: [id number] DATE: 09/15/17HistoryPatient presents with:Sore ThroatHPI Comments: This is a 32 year old otherwise healthy female presenting tot ED with a several hour history of body aches, sore throat, fevers,chills, and headache. The patient describes the headache as an 8/10,constant, pounding, aggravated with talking, bright lights and movement,no reported alleviating factors, associated with phono/photophobia,fevers, not associated with visual or auditory changes, n/v/d, neck pain,neck stiffness, new rashes, or LOC.Patient is a 32 year old female presenting with sore throat.History provided by: PatientLanguage pharmacy services director used: NoSore ThroatLocation: GeneralizedQuality: Sore, aching and burningOnset quality: SuddenDuration: 1 dayTiming: ConstantProgression: WorseningChronicity: RecurrentRelieved by: NothingWorsened by: Swallowing, eating and drinkingIneffective treatments: None triedAssociated symptoms: fever, headaches, trouble swallowing and voice changeAssociated symptoms: no abdominal pain, no adenopathy, no chest pain, nochills, no cough, no drooling, no ear discharge, no ear pain, noepistaxis, no eye discharge, no neck stiffness, no night sweats, noplugged ear sensation, no postnasal drip, no rash, no rhinorrhea, noshortness of breath, no sinus congestion and no stridorRisk factors: sick contactsRisk factors: no exposure to strep, no exposure to mono, no recent dentalprocedure, no recent endoscopy and no recent ENT procedureNo past medical history on file.No past surgical history on file.No family history on file.Social HistorySocial History Main Topics- Smoking status: Never Smoker- Smokeless tobacco: None- Alcohol use No- Drug use: No- Sexual activity: Yes Partners: MaleALLERGIESNo Known AllergiesReview of SystemsConstitutional: Positive for fever. Negative for chills and night sweats.HENT: Positive for sore throat, trouble swallowing and voice change.Negative for drooling, ear discharge, ear pain, nosebleeds, postnasal dripand rhinorrhea.Eyes: Negative for discharge.Respiratory: Negative for cough, shortness of breath and stridor.Cardiovascular: Negative for chest pain.Gastrointestinal: Negative for abdominal pain.Musculoskeletal: Negative for neck stiffness.Skin: Negative for rash.Neurological: Positive for headaches.Hematological: Negative for adenopathy.Physical ExamBP 121/76 Pulse 83 Temp (Src) 99 (Oral) Resp 17 Ht 5' 7 (1.70m) Wt 180 lb (81.6kg) SpO2 99% LMP 09/06/2017 BMI 28.19 kg/(m2).Physical ExamConstitutional: She is oriented to person, place, and time. She appearswell-developed and well-nourished. She appears distressed.HENT:Head: Normocephalic and atraumatic.Right Ear: Hearing, tympanic membrane, external ear and ear canal normal.Left Ear: Hearing, tympanic membrane, external ear and ear canal normal.Nose: Nose normal.Mouth/Throat: Uvula is midline. Oropharyngeal exudate and posteriororopharyngeal erythema present. No posterior oropharyngeal edema ortonsillar abscesses.Patient's voice is hoarse and muffled. There is a scant amount of exudateon bilateral tonsils, however no appreciable tonsillar swelling. Thepatient is not drooling and handling secretions well.Eyes: Conjunctivae and EOM are normal. Pupils are equal, round, andreactive to light. No scleral icterus.Neck: Normal range of motion. Neck supple. No JVD present. No spinousprocess tenderness and no muscular tenderness present. No rigidity. Normalrange of motion present. No Brudzinski's sign and no Kernig's sign noted.Cardiovascular: Normal rate, regular rhythm, normal heart sounds andintact distal pulses.Pulmonary/Chest: Effort normal and breath sounds normal. No stridor. Norespiratory distress. She has no wheezes. She has no rales. She exhibitsno tenderness.Abdominal: Soft. Normal appearance and bowel sounds are normal. Sheexhibits no distension and no mass. There is no tenderness. There is CVAtenderness (left). There is no rebound and no guarding.Musculoskeletal: Normal range of motion. She exhibits no edema, tendernessor deformity.Lymphadenopathy : She has cervical adenopathy (b/l).Neurological: She is alert and oriented to person, place, and time. Shedisplays normal reflexes. No cranial nerve deficit. She exhibits normalmuscle tone. Coordination normal.Skin: Skin is warm. No rash noted. She is diaphoretic. No erythema.Psychiatric: She has a normal mood and affect. Her behavior is normal.Nursing note and vitals reviewed.Diagnostic TestingED Labs Ordered and ReviewedCBC + AUTO DIFF (AK,AV,EU,FV,HL,QIAN,MM,SP) - Abnormal; Notable for thefollowing: Result Value Ref Range WBC 14.53 (*) 3.70 - 11.00 k/uL Abs Neut (ANC) 13.25 (*) 1.45 - 7.50 k/uL Abs Lymph 0.73 (*) 1.00 - 4.00 k/uL All other components within normal limitsCOMPREHENSIVE METABOLIC PANEL (AK,AV,EU,FV,HL,QIAN,MM,SP) - Abnormal;Notable for the following: AST 12 (*) 13 - 35 U/L Glucose 117 (*) 74 - 99 mg/dL Sodium 133 (*) 136 - 144 mmol/L Chloride 95 (*) 97 - 105 mmol/L All other components within normal limitsURINALYSIS WITH MICROSCOPIC (AK,AV,EU,FV,HL,QIAN,MM,SP) - Abnormal; Notablefor the following: Clarity Hazy (*) Clear pH, Urine 8.5 (*) 4.5 - 8.0 Protein, Urine Trace (*) Negative mg/dL Urobilinogen 2.0 (*) 0.2 - 1.0 All other components within normal limitsRAPID GRP A STREP (ADULTS ONLY) (AV,EU,FV,HL,QIAN,MM,MS,SP) HCG QUALITATIVE URINE (AK,AV,EU,FV,HL,QIAN,MM,SP) MONONUCLEOSIS SCREEN (AK,AV,EU,FV,HL,QIAN,MM,SP) ProceduresMedical Decision Making / ED CourseED [id number] year old presents to ED d/t sore throat, muscle aches, headache x onedays. PATIENT is afebrile and hemodynamically stable, well-appearing andnon-toxic. Patient given 1 L normal saline, 15 mg IV Toradol, 50 mg IVBenadryl, 4 mg IV Zofran, oral Tylenol while in the ED with improvement.Lab work done resulted in the following results: UA: Alkalotic urine(8.5), trace proteinuria, urobilinogenuria, urine hCG: Negative CBC:Leukocytosis (14.53), absolute neutrophil count elevated (13.25), lowabsolute lymphocyte (0.73), CMP: Mild hyperglycemia (117), hyponatremia(133), hypochloremia (95), Monospot: Negative, rapid strep: Negative. Atthis time, the most likely Dx is viral syndrome. 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 Patient was discharged with instructions to f/u with PCPin 5-7 days and to return to ED immediately if symptoms worsen and newsymptoms develop such as increasing pain, fevers, chills, neck pain, neckstiffness, new rashes, new headaches, unilateral weakness, or any changein mental status.The patient and/or family as well as anybody present:-if seated in an open space, such as Results Waiting, were askedpermission and permission granted if we could proceed with medicalquestioning and discussion of medical test results-had the results of all tests and the diagnosis reviewed and explained tothem and there were no further questions-were given both verbal and written discharge instructions-were instructed of the importance of close [id number] told that close follow-up is essential for good health and goodoutcomes-were given a work/school excuse, if needed-were told that we would call them with final positive culture/lab resultsEncounter Diagnosis ICD-10-CM1. Viral syndrome B34.9PlanThe Patient was DISCHARGED: Counseled patient regarding lab results ANDsuspected diagnosis AND need for follow-up. Discharged home with verbal andwritten instructions. They were instructed to return as needed forpersistent or worsening symptoms or any new concerns.Given a prescription for the following medication(s): Amoxicillin,ibuprofen and TylenolCondition at time of disposition: improved and stableSIGNATURE: Lio Calderon (Pa)09/16/17 0025 [facility] Grp A Strep (Adults)on 09-15 Grp A Strep Ag Negative [facility] Comment on above: Performed By: #### S TRAG ####[facility] [phone] Grp A Strep Source Throat Swab [facility] Comment on above: Performed By: #### S TRAG ####[facility] [phone] Vital Signs Date Time Vital Sign Value Performing Clinician Facility 02-25-2025 13:21-0400 Body mass index (BMI) [Ratio] 38.43 kg/m2 Vladislav Castaneda APRN.CNP Work Phone: 02-25-2025 13:21-040 Body temperature 98.01 [degF] Vladislav Castaneda APRN.CNP Work Phone: 02-25-2025 13:21-0400 Body weight 111.3 kg Vladislav Castaneda APRN.CNP Work Phone: 02-25-2025 13:21-0400 Diastolic blood pressure 74 mm[Hg] Vladislav Castaneda APRN.CNP Work Phone: 02-25-2025 13:21-0400 Heart rate 72 /min Vladislav Castaneda APRN.CNP Work Phone: 02-25-2025 13:21-0400 Respiratory rate 18 /min Vladislav Leonel METAL PLATER.TAKE UP OPERATOR Work Phone: 02-25-2025 13:21-0400 SaO2% (BldA) [Mass fraction] 99 % Vladislav Castaneda METAL PLATER.TAKE UP OPERATOR Work Phone: 02-25-2025 13:21-0400 Systolic blood pressure 111 mm[Hg] Vladislav Castaneda METAL PLATER.TAKE UP OPERATOR Work Phone: 01-20-2025 16:19-0400 Body mass index (BMI) [Ratio] 37.29 kg/m2 Nando Núñez METAL PLATER.TAKE UP OPERATOR Work Phone: 01-20-2025 16:19-0400 Body weight 108 kg Nando Núñez METAL PLATER.TAKE UP OPERATOR Work Phone: 01-20-2025 16:19-0400 Diastolic blood pressure 72 mm[Hg] Nando Núñez METAL PLATER.TAKE UP OPERATOR Work Phone: 01-20-2025 16:19-0400 Heart rate 83 /min Nando Núñez METAL PLATER.TAKE UP OPERATOR Work Phone: 01-20-2025 16:19-0400 Respiratory rate 16 /min Nando Núñez METAL PLATER.TAKE UP OPERATOR Work Phone: 01-20-2025 16:19-0400 SaO2% (BldA) [Mass fraction] 97 % Nando Núñez METAL PLATER.TAKE UP OPERATOR Work Phone: 01-20-2025 16:19-0400 Systolic blood pressure 94 mm[Hg] Nando Núñez METAL PLATER.TAKE UP OPERATOR Work Phone: 01-14-2025 09:10-0500 Body mass index (BMI) [Ratio] 36.95 kg/m2 Nando Núñez METAL PLATER.TAKE UP OPERATOR Work Phone: 01-14-2025 09:10-0500 Body temperature 97.39 [degF] Nando Núñez METAL PLATER.TAKE UP OPERATOR Work Phone: 01-14-2025 09:10-0500 Body weight 107 kg Nando Núñez METAL PLATER.TAKE UP OPERATOR Work Phone: 01-14-2025 09:10-0500 Diastolic blood pressure 76 mm[Hg] Nando Núñez METAL PLATER.TAKE UP OPERATOR Work Phone: 01-14-2025 09:10-0500 Heart rate 71 /min Nando Núñez METAL PLATER.TAKE UP OPERATOR Work Phone: 01-14-2025 09:10-0500 Respiratory rate 20 /min Nando Núñez METAL PLATER.TAKE UP OPERATOR Work Phone: 01-14-2025 09:10-0500 SaO2% (BldA) [Mass fraction] 97 % Nando Núñez METAL PLATER.TAKE UP OPERATOR Work Phone: 01-14-2025 09:10-0500 Systolic blood pressure 115 mm[Hg] Nando Núñez METAL PLATER.TAKE UP OPERATOR Work Phone: 12-28-2024 13:30-0500 Body mass index (BMI) [Ratio] 37.46 kg/m2 Rosalba Oneill-Tyson METAL PLATER.TAKE UP OPERATOR Work Phone: 12-28-2024 13:30-0500 Body temperature 98.8 [degF] Rosalba Oneill-Tyson METAL PLATER.TAKE UP OPERATOR Work Phone: 12-28-2024 13:30-0500 Body weight 108.5 kg Rosalba Oneill-Tyson METAL PLATER.TAKE UP OPERATOR Work Phone: 12-28-2024 13:30-0500 Diastolic blood pressure 78 mm[Hg] Rosalba Hoodler-Tyson METAL PLATER.TAKE UP OPERATOR Work Phone: 12-28-2024 13:30-0500 Heart rate 70 /min Rosalba Oneill-Tyson METAL PLATER.TAKE UP OPERATOR Work Phone: 12-28-2024 13:30-0500 Respiratory rate 21 /min Rosalbaaline Hoffman METAL PLATER.TAKE UP OPERATOR Work Phone: 12-28-2024 13:30-0500 SaO2% (BldA) [Mass fraction] 98 % Rosalbaaline Morganalonso-Tyson METAL PLATER.TAKE UP OPERATOR Work Phone: 12-28-2024 13:30-0500 Systolic blood pressure 118 mm[Hg] Rosalba Hoffman METAL PLATER.TAKE UP OPERATOR Work Phone: 07-22-2024 12:36-0400 Body mass index (BMI) [Ratio] 37.98 kg/m2 Tano Burnham APRN.TAKE UP OPERATOR Work Phone: 07-22-2024 12:36-0400 Body temperature 98.49 [degF] Tano Burnham APRN.TAKE UP OPERATOR Work Phone: 07-22-2024 12:36-0400 Body weight 110 kg Tano Burnham APRN.TAKE UP OPERATOR Work Phone: 07-22-2024 12:36-0400 Diastolic blood pressure 76 mm[Hg] Tano Burnham APRN.TAKE UP OPERATOR Work Phone: 07-22-2024 12:36-0400 Heart rate 88 /min Tano Burnham APRN.TAKE UP OPERATOR Work Phone: 07-22-2024 12:36-0400 Respiratory rate 18 /min Tano Burnham APRN.TAKE UP OPERATOR Work Phone: 07-22-2024 12:36-0400 SaO2% (BldA) [Mass fraction] 96 % Tano Burnham APRN.TAKE UP OPERATOR Work Phone: 07-22-2024 12:36-0400 Systolic blood pressure 120 mm[Hg] Tano Burnham APRN.TAKE UP OPERATOR Work Phone: 07-06-2024 16:52-0400 Body mass index (BMI) [Ratio] 38.36 kg/m2 Lucrecia Arreguin METAL PLATER.TAKE UP OPERATOR Work Phone: 07-06-2024 16:52-0400 Body temperature 98.6 [degF] Lucrecia Arreguin METAL PLATER.TAKE UP OPERATOR Work Phone: 07-06-2024 16:52-0400 Body weight 111.1 kg Lucrecia Arreguin METAL PLATER.TAKE UP OPERATOR Work Phone: 07-06-2024 16:52-0400 Diastolic blood pressure 64 mm[Hg] Lucrecia Arreguin METAL PLATER.TAKE UP OPERATOR Work Phone: 07-06-2024 16:52-0400 Heart rate 86 /min Lucrecia Arreguin METAL PLATER.TAKE UP OPERATOR Work Phone: 07-06-2024 16:52-0400 Respiratory rate 16 /min Lucrecia Arreguin METAL PLATER.TAKE UP OPERATOR Work Phone: 07-06-2024 16:52-0400 SaO2% (BldA) [Mass fraction] 96 % Lucrecia Arreguin METAL PLATER.TAKE UP OPERATOR Work Phone: 07-06-2024 16:52-0400 Systolic blood pressure 116 mm[Hg] Lucrecia Arreguin METAL PLATER.TAKE UP OPERATOR Work Phone: 04-24-2024 12:39-0400 Body mass index (BMI) [Ratio] 40.23 kg/m2 Nando Núñez METAL PLATER.TAKE UP OPERATOR Work Phone: 04-24-2024 12:39-0400 Body temperature 97.39 [degF] Nando Wilton METAL PLATER.TAKE UP OPERATOR Work Phone: 04-24-2024 12:39-0400 Body weight 116.5 kg Nando King METAL PLATER.TAKE UP OPERATOR Work Phone: 04-24-2024 12:39-0400 Diastolic blood pressure 76 mm[Hg] Nando Wilton METAL PLATER.TAKE UP OPERATOR Work Phone: 04-24-2024 12:39-0400 Heart rate 71 /min Nando Núñez APRN.TAKE UP OPERATOR Work Phone: 04-24-2024 12:39-0400 Respiratory rate 16 /min Nando Núñez METAL PLATER.TAKE UP OPERATOR Work Phone: 04-24-2024 12:39-0400 SaO2% (BldA) [Mass fraction] 97 % Nando Núñez APRN.TAKE UP OPERATOR Work Phone: 04-24-2024 12:39-0400 Systolic blood pressure 148 mm[Hg] Nando Núñez APRN.TAKE UP OPERATOR Work Phone: 04-11-2024 10:15-0400 Body mass index (BMI) [Ratio] 40.19 kg/m2 Tano Burnham APRN.TAKE UP OPERATOR Work Phone: 04-11-2024 10:15-0400 Body temperature 98.29 [degF] Tano Burnham APRN.TAKE UP OPERATOR Work Phone: 04-11-2024 10:15-0400 Body weight 116.4 kg Tano Burnham APRN.TAKE UP OPERATOR Work Phone: 04-11-2024 10:15-0400 Diastolic blood pressure 76 mm[Hg] Tano Burnham APRN.TAKE UP OPERATOR Work Phone: 04-11-2024 10:15-0400 Heart rate 88 /min Tano Burnham APRN.TAKE UP OPERATOR Work Phone: 04-11-2024 10:15-0400 Respiratory rate 16 /min Tano Burnham APRN.TAKE UP OPERATOR Work Phone: 04-11-2024 10:15-0400 SaO2% (BldA) [Mass fraction] 97 % Tano Burnham APRN.TAKE UP OPERATOR Work Phone: 04-11-2024 10:15-0400 Systolic blood pressure 140 mm[Hg] Tano Burnham APRN.TAKE UP OPERATOR Work Phone: 07-29-2023 11:17-0400 Body temperature 98.49 [degF] Jono Bustos MD Work Phone: 07-29-2023 11:17-0400 Body weight 127.91 kg Jono Bustos MD Work Phone: 07-29-2023 11:17-0400 Diastolic blood pressure 72 mm[Hg] Jono Bustos MD Work Phone: 07-29-2023 11:17-0400 Heart rate 104 /min Jono Bustos MD Work Phone: 07-29-2023 11:17-0400 Respiratory rate 16 /min Jono Bustos MD Work Phone: 07-29-2023 11:17-0400 SaO2% (BldA) [Mass fraction] 98 % Jono Bustos MD Work Phone: 07-29-2023 11:17-0400 Systolic blood pressure 120 mm[Hg] Jono Bustos MD Work Phone: 07-11-2023 09:23-0400 Body temperature 98.01 [degF] Vladislav Castaneda METAL PLATER.TAKE UP OPERATOR Work Phone: 07-11-2023 09:23-0400 Body weight 128.91 kg Vladislav Castaneda METAL PLATER.TAKE UP OPERATOR Work Phone: 07-11-2023 09:23-0400 Diastolic blood pressure 68 mm[Hg] Vladislav Pendleroxy METAL PLATER.TAKE UP OPERATOR Work Phone: 07-11-2023 09:23-0400 Heart rate 73 /min Vladislav Castaneda METAL PLATER.TAKE UP OPERATOR Work Phone: 07-11-2023 09:23-0400 Respiratory rate 18 /min Vladislav Pendleroxy METAL PLATER.TAKE UP OPERATOR Work Phone: 08-31-2023 09:23-0400 SaO2% (BldA) [Mass fraction] 98 % Vladislav Leonel METAL PLATER.TAKE UP OPERATOR Work Phone: 07-11-2023 09:23-0400 Systolic blood pressure 108 mm[Hg] Vladislav Danniellelebury METAL PLATER.TAKE UP OPERATOR Work Phone: 07-06-2023 12:58-0400 Body temperature 99.19 [degF] Aliyah Payal METAL PLATER.TAKE UP OPERATOR Work Phone: 07-06-2023 12:58-0400 Body weight 128.37 kg Aliyah Payal METAL PLATER.TAKE UP OPERATOR Work Phone: 07-06-2023 12:58-0400 Diastolic blood pressure 80 mm[Hg] Aliyah Payal METAL PLATER.TAKE UP OPERATOR Work Phone: 07-06-2023 12:58-0400 Heart rate 93 /min Aliyah Payal METAL PLATER.TAKE UP OPERATOR Work Phone: 07-06-2023 12:58-0400 Respiratory rate 18 /min Aliyah Payal METAL PLATER.TAKE UP OPERATOR Work Phone: 07-06-2023 12:58-0400 SaO2% (BldA) [Mass fraction] 98 % Aliyah Payal METAL PLATER.TAKE UP OPERATOR Work Phone: 07-06-2023 12:58-0400 Systolic blood pressure 112 mm[Hg] Aliyah Payal METAL PLATER.TAKE UP OPERATOR Work Phone: 08-15-2022 13:36-0400 Body temperature 97.9 [degF] Rosalba Hoodler-Wood METAL PLATER.TAKE UP OPERATOR Work Phone: 08-15-2022 13:36-0400 Body weight 115.85 kg Rosalbaaline Hoodler-Wood METAL PLATER.TAKE UP OPERATOR Work Phone: 08-15-2022 13:36-0400 Diastolic blood pressure 74 mm[Hg] Rosalba Praisler-Wood METAL PLATER.TAKE UP OPERATOR Work Phone: 08-15-2022 13:36-0400 Heart rate 85 /min Rosalba Praisler-Wood METAL PLATER.TAKE UP OPERATOR Work Phone: 08-15-2022 13:36-0400 Respiratory rate 21 /min Rosalba Praisler-Wood METAL PLATER.TAKE UP OPERATOR Work Phone: 08-15-2022 13:36-0400 SaO2% (BldA) [Mass fraction] 99 % Rosalba Praisler-Wood METAL PLATER.TAKE UP OPERATOR Work Phone: 08-15-2022 13:36-0400 Systolic blood pressure 112 mm[Hg] Rosalba Praisler-Wood METAL PLATER.TAKE UP OPERATOR Work Phone: 05-10-2022 11:24-0400 Respiratory rate 16 /min [facility] Work Phone: 05-10-2022 10:36-0400 Body temperature 98.9 [degF] [facility] Work Phone: 05-10-2022 10:36-0400 Diastolic blood pressure 74 mm[Hg] Work Phone: 05-10-2022 10:36-0400 Heart rate 105 /min [facility] Work Phone: 05-10-2022 10:36-0400 SaO2% (BldA) [Mass fraction] 98 % Work Phone: 05-10-2022 10:36-0400 Systolic blood pressure 125 mm[Hg] Work Phone: 05-10-2022 10:33-0400 Body height 172.72 cm [facility] Work Phone: 05-10-2022 10:33-0400 Body mass index (BMI) [Ratio] 34.2 kg/m2 Work Phone: 05-10-2022 10:33-0400 Body weight 102.05 kg [facility] Work Phone: Encounters Encounter Date Encounter Type Care Provider Facility Start: 02-25-2025 End: 02-25-2025 ambulatory [facility] Facility:[facility] Start: 02-25-2025 End: 02-25-2025 Office outpatient visit 15 minutes Vladislav Castaneda APRN.TAKE UP OPERATOR Work Phone: [facility] Comment on above: Sore throat (Primary Dx); Viral illness Start: 01-20-2025 End: 01-20-2025 [facility] [place] Facility:[facility] Start: 01-20-2025 End: 01-20-2025 Patient encounter procedure Nando Núñez APRN.TAKE UP OPERATOR Work Phone: [facility] Comment on above: URI, acute (Primary Dx); Sore throat Start: 01-15-2025 End: 01-15-2025 Follow-up encounter Jono Bustos MD Work Phone: [facility] Start: 01-14-2025 End: 01-14-2025 [facility] Facility:[facility] Start: 01-14-2025 End: 01-14-2025 Patient encounter procedure Nando Núñez APRN.TAKE UP OPERATOR Work Phone: [facility] Comment on above: URI, acute (Primary Dx); Sore throat; ETD (Eustachian tube dysfunction), right Start: 12-28-2024 End: 12-28-2024 [facility] Facility:[facility] Start: 12-28-2024 End: 12-28-2024 Patient encounter procedure Rosalba Hoffman METAL PLATER.TAKE UP OPERATOR Work Phone: [facility] Comment on above: Otitis media with ef fusion, right (Primary Dx) Start: 08-25-2024 End: 08-25-2024 ambulatory Sushila Valadez Facility: Start: 07-22-2024 End: 07-22-2024 ambulatory [facility] Facility:[facility] Start: 07-22-2024 End: 07-22-2024 Patient encounter procedure Tano Burnham APRN.TAKE UP OPERATOR Work Phone: [facility] Comment on above: [place] eye disease of right eye (Primary Dx) Start: 07-07-2024 End: 07-07-2024 Telephone encounter Bladimir WALTERS Work Phone: [facility] Comment on above: Results Start: 07-06-2024 End: 07-06-2024 [facility] [place] Facility:[facility] Start: 07-06-2024 End: 07-06-2024 Patient encounter procedure Lucrecia Arreguin METAL PLATER.TAKE UP OPERATOR Work Phone: [facility] Comment on above: URI, acute (Primary Dx); Viral illness Start: 04-24-2024 End: 04-24-2024 [facility] [place] Facility:[facility] Start: 04-24-2024 End: 04-24-2024 Patient encounter procedure Nando Núñez METAL PLATER.TAKE UP OPERATOR Work Phone: [facility] Comment on above: Neck pain (Primary D x) Start: 04-11-2024 End: 04-11-2024 [facility] [place] Facility:[facility] Start: 04-11-2024 End: 04-11-2024 Patient encounter procedure Tano Burnham APRN.TAKE UP OPERATOR Work Phone: [facility] Comment on above: Pain, dental (Primar y Dx) Start: 08-09-2023 End: 08-09-2023 Subsequent hospital visit by physician Xr [facility] [place] Work Phone: Radiology Comment on above: Rib pain [R07.81] Start: 07-29-2023 End: 07-29-2023 Subsequent hospital visit by physician Xr [facility] [place] Work Phone: Radiology Comment on above: Subacute cough [R05. 2] Start: 07-29-2023 End: 07-29-2023 Patient encounter procedure Jono Bustos MD Work Phone: [facility] Comment on above: Subacute cough (Prim joel Dx); Rib pain on left side Start: 07-11-2023 End: 07-11-2023 Office outpatient visit 25 minutes Vladislav Castaneda APRN.TAKE UP OPERATOR Work Phone: [facility] Comment on above: Sinobronchitis (Prim joel Dx) Start: 07-06-2023 End: 07-06-2023 Patient encounter procedure Aliyah Moe METAL PLATER.TAKE UP OPERATOR Work Phone: [facility] Comment on above: Bronchitis (Primary Dx) Start: 08-15-2022 End: 08-15-2022 Patient encounter procedure Rosalba Hoffman APRN.TAKE UP OPERATOR Work Phone: [facility] Comment on above: Tonsil stone (Primar y Dx); Ear pain, right Start: 05-10-2022 End: 05-10-2022 Emergency department patient visit -Emergency Department Start: 09-15-2017 End: 09-16-2017 Emergency department patient visit [facility] Procedures Date Procedure Procedure Detail Performing Clinician Start: 02-25-2025 STREP A MOLECULAR (POC) Vladislav Castaneda APRN.TAKE UP OPERATOR Work Phone: Start: 01-20-2025 STREP A MOLECULAR (POC) Nando Núñez APRN.TAKE UP OPERATOR Work Phone: Start: 01-14-2025 STREP A MOLECULAR (POC) Nando Núñez APRN.TAKE UP OPERATOR Work Phone: Start: 08-09-2023 Radex ribs uni w/posteroant ch minimum 3 views Tano Burnham APRN.TAKE UP OPERATOR Work Phone: Start: 07-29-2023 Radiologic exam ches t 2 views Jono Bustos MD Work Phone: Plan of Treatment Date Care Activity Detail Author Start: 07-12-2024 Covid-19 Vaccine () Covid-19 Vaccine () Start: 07-12-2024 Covid-19 Vaccine () Covid-19 Vaccine ( season) Start: 07-12-2024 Influenza vaccination C [facility] Start: 07-06-2024 End: 07-20-2024 COVID & INFLUENZA A/B & RSV NAAT, ROUTINE COVID & INFLUENZA A/B & RSV NAAT, ROUTINE Microbiology Routine URI, acute Viral illness Expected: 07/06/2024, Expires: 07/20/2024 [facility] Work Phone: Comment on above: Expected: 07/06/2024 , Expires: 07/20/2024 Start: 04-06-2024 Urine microalbumin profile DTaP,Tdap,Td Vaccine (3 - Td or Tdap) Start: 11-11-2023 Behavioral Health Screening Behavioral Health Screening Start: 07-12-2023 Covid-19 Vaccine ( season) Covid-19 Vaccine ( season) Start: 07-12-2023 Influenza vaccination C [facility] Start: 11-11-2022 [facility] Start: 07-12-2022 Influenza vaccination INFLUENZA (#1) Start: 05-10-2022 [facility] Work Phone: Start: 11-11-2021 DEPRESSION ASSESSMENT DEPRESSION ASS [facility] Start: 2017 HPV TESTING HPV TESTING Start: 2017 Screening for malign ant neoplasm of cervix HPV Testing Start: 2008 PAP TESTING PAP TESTING Start: 2008 Screening for malign ant neoplasm of cervix Start: 2006 Hepatitis B Vaccine (1 of 3 - 19+ 3-dose series) Hepatitis B Vaccine (1 of 3 - 19+ 3-dose series) Start: 2006 Urine microalbumin profile Start: 2005 Anxiety Screening Anxiety Screening Start: 2005 Depression Screening Depression Scre [facility] Start: 2005 HEPATITIS C SCREENING HEPATITIS C [facility] Start: 2005 Hepatitis C screening Hepatitis C [facility] Start: 2005 HIV SCREENING HIV SCREENING [facility] Start: 2005 HIV screening HIV Screening [facility] Start: 1987 COVID-19 VACCINE (#1) COVID-19 VACCI NE (#1) Start: 1987 HEPATITIS B (1 of 3 - 3-dose series) HEPATITIS B (1 of 3 - 3-dose series) Start: 1987 Hepatitis B Vaccine (1 of 3 - 3-dose series) Hepatitis B Vaccine (1 of 3 - 3-dose series) COVID & INFLUENZA A/ B & RSV PCR, ROUTINE COVID & INFLUENZA A/B & RSV PCR, ROUTINE Microbiology Routine URI, acute Ordered: 01/14/2025 [facility] Work Phone: Comment on above: Ordered: 01/14/2025 Influenza virus A an d B and SARS-CoV-2 (COVID-19) Ag panel - Upper respiratory specim Work Phone: Patient referral [facility] Work Phone: SARS-CoV-2 & FLU Antigen (Rapid) SARS-CoV-2 & FLU Antigen (Rapid) Work Phone: Immunizations Immunization Date Immunization Notes Care Provider Miriam fernandez 04-06-2014 tetanus toxoid, redu vivienne diphtheria toxoid, and acellular pertussis vaccine, adsorbed Vladislav Pendlebury METAL PLATER.TAKE UP OPERATOR Work Phone: 03-14-2013 tetanus toxoid, redu vivienne diphtheria toxoid, and acellular pertussis vaccine, adsorbed Vladislav Pendlebury METAL PLATER.TAKE UP OPERATOR Work Phone: 11-14-2009 novel [id number], preservative-free, injectable Vladislav Pendlebury METAL PLATER.TAKE UP OPERATOR Work Phone: 11-14-2009 influenza virus vaccine, unspecified formulation Jono Bustos MD Work Phone: 10-18-2003 influenza, seasonal, injectable Vladislav Pendlebury METAL PLATER.TAKE UP OPERATOR Work Phone: Payers Date Payer Category Payer Self-pay [id number] 2022 Unknown [id number] 2021 Medicaid [id number] Medicaid SELF PAY INSURANCE [id number] Unknown SELF PAY INSURANCE [id number] 00 [id number] Unknown SELF PAY INSURANCE [id number] 01 [id number] Unknown [id number] Social History Date Type Detail Facility [facility] Work Phone: Start: 05-10-2022 Tobacco smoking stat [facility] Unknown if ever smoked Work Phone: Start: 1985 Sex Assigned At Female W [facility] Work Phone: Start: 08-15-2022 Tobacco smoking stat [facility] Ex-smoker History of tobacco use Current smoker [facility] History of tobacco use Cigarette Smoker C [facility] History of tobacco use Passive smoker [facility] Start: 08-15-2022 Tobacco use and exposure Smokeless tobacco non-user Start: 08-15-2022 End: 02-25-2025 Alcohol intake Current non-drinker of alcohol (finding) Start: 1985 Sex Assigned At Not on file C [facility] Start: 08-05-2022 End: 08-15-2022 Exposure to SARS-CoV-2 (event) Not sure Work Phone: Start: 07-06-2023 End: 02-25-2025 History of Social function Start: 07-06-2023 End: 02-25-2025 Tobacco use panel [facility] Mental Status Date Assessment Result Facility 05-10-2022 Cognitive function Level Of Cons ciousness Awake;Alert;Appropriate;Follow s Commands Work Phone: Clinical Notes 08-15-2022 to 02-25-2025 Vladislav Castaneda APRN.PRICILA - 02/25/2025 1:24 PM EDTNando Núñez APRN.PRICILA - 01/20/2025 4:48 PM EDTTelephone Encounter - Jono Bustos MD - 01/15/2025 7:27 AM ESTPatient Instructions Note Date & Type Note Facility 02-25-2025 Note HNO ID: [id number] Author: VLADISLAV CASTANEDA APRN.PRICILA Service: ? Author Type: Nurse Practitioner Type: Progress Notes Filed: 02/25/2025 13:41 Note Text: [facility] Subjective Daksha Dos Santos is a 39 year old female. Patient presents with: Sore Throat: Bilateral ear pain and fullness, fever x last night HPI Nontoxic-appearing 39-year-old female presents urgent care chief plaint sore throat bilateral ear fullness fever. Had a fever last night. Most problem symptom today is ear pain. Left work early due to discomfort. Sick contacts unknown. Patient states children have been sick recently illness has been going through the house. OTC medications none. No ear trauma loss hearing or otorrhea. No fevers today. Is not is not breast-feeding. No chest pain shortness of breath or hemoptysis. No vomiting abdominal pain. Past medical history prescription medications allergies reviewed Review of Systems Constitutional: Positive for fatigue. Negative for chills, diaphoresis and fever. HENT: Positive for ear pain and sore throat. Negative for congestion, drooling, ear discharge, rhinorrhea, sinus pressure, sinus pain, sneezing and trouble swallowing. Eyes: Negative for pain, discharge, redness, itching and visual disturbance. Respiratory: Negative for cough, chest tightness, shortness of breath and wheezing. Cardiovascular: Negative for chest pain. Gastrointestinal: Positive for nausea. Negative for abdominal distention, abdominal pain, blood in stool, constipation, diarrhea and vomiting. Genitourinary: Negative for difficulty urinating and dysuria. Musculoskeletal: Negative for arthralgias, joint swelling, neck pain and neck stiffness. Skin: Negative for rash. Neurological: Positive for headaches. Negative for dizziness, weakness and numbness. Objective BP 111/74 Pulse 72 Temp 36.7 ?C (98 ?F) Resp 18 Wt 111.3 kg (245 lb 6 oz) LMP 01/10/2025 (Exact Date) SpO2 99% BMI 38.43 kg/m? Physical Exam Constitutional: Appearance: Normal appearance. HENT: Head: Normocephalic. Jaw: No trismus, tenderness, swelling or pain on movement. Right Ear: Tympanic membrane, ear canal and external ear normal. Left Ear: Tympanic membrane, ear canal and external ear normal. Nose: No congestion. Mouth/Throat: Mouth: Mucous membranes are moist. Pharynx: Oropharynx is clear. Uvula midline. No oropharyngeal exudate or posterior oropharyngeal erythema. Eyes: Conjunctiva/sclera: Conjunctivae normal. Cardiovascular: Rate and Rhythm: Normal rate. Pulmonary: Effort: Pulmonary effort is normal. Breath sounds: Normal breath sounds. No wheezing, rhonchi or rales. Abdominal: Palpations: Abdomen is soft. Tenderness: There is no abdominal tenderness. There is no guarding or rebound. Musculoskeletal: General: Normal range of motion. Cervical back: Normal range of motion and neck supple. No edema or erythema. No pain with movement. Normal range of motion. Lymphadenopathy: Cervical: No cervical adenopathy. Skin: General: Skin is warm. Findings: No rash. Neurological: General: No focal deficit present. Mental Status: She is alert and oriented to person, place, and time. Mental status is at baseline. {ASSESSMENT/PLAN: 1. Sore throat - ICD9: 462, ICD10: J02.9 (primary diagnosis) - STREP A MOLECULAR (POC) 2. Viral illness - ICD9: 079.99, ICD10: B34.9 - Discussed viral etiology and rationale for treatment. - Symptomatic treatment with prn analgesia - Supportive care with fluids and rest Strep test negative. Clear fluid noted behind bilateral TMs. TMs pearly yarbrough and intact. No evidence of infection. Treat as viral etiology. Patient was educated on supportive therapies. Patient will follow up with primary care provider as needed. Patient was instructed to immediately proceed to emergency room for any new, worsening, or symptoms lasting longer than anticipated. The patient's clinical presentation is otherwise unremarkable at this time. Based on exam and clinical finding, the patient is stable for discharge. Plan of care was discussed with patient. Patient verbalizes understanding and agrees to plan of care. This note was generated using [employer] software. It may contain errors in wording, punctuation, or spelling. Vladislav Castaneda APRN.TAKE UP OPERATOR History and Record Review Clinical information obtained from an independent historian. History obtained from or confirmed by: parent. External record(s) reviewed: prior outpatient record. Disposition The patient was discharged. Procedures [facility] 02-25-2025 History of Presen t illness Narrative [facility] Subjective Daksha Dos Santos is a 39 year old female. Patient presents with: Sore Throat: Bilateral ear pain and fullness, fever x last night HPI Nontoxic-appearing 39-year-old female presents urgent care chief plaint sore throat bilateral ear fullness fever. Had a fever last night. Most problem symptom today is ear pain. Left work early due to discomfort. Sick contacts unknown. Patient states children have been sick recently illness has been going through the house. OTC medications none. No ear trauma loss hearing or otorrhea. No fevers today. Is not is not breast-feeding. No chest pain shortness of breath or hemoptysis. No vomiting abdominal pain. Past medical history prescription medications allergies reviewed Review of Systems Constitutional: Positive for fatigue. Negative for chills, diaphoresis and fever. HENT: Positive for ear pain and sore throat. Negative for congestion, drooling, ear discharge, rhinorrhea, sinus pressure, sinus pain, sneezing and trouble swallowing. Eyes: Negative for pain, discharge, redness, itching and visual disturbance. Respiratory: Negative for cough, chest tightness, shortness of breath and wheezing. Cardiovascular: Negative for chest pain. Gastrointestinal: Positive for nausea. Negative for abdominal distention, abdominal pain, blood in stool, constipation, diarrhea and vomiting. Genitourinary: Negative for difficulty urinating and dysuria. Musculoskeletal: Negative for arthralgias, joint swelling, neck pain and neck stiffness. Skin: Negative for rash. Neurological: Positive for headaches. Negative for dizziness, weakness and numbness. Objective BP 111/74 Pulse 72 Temp 36.7 C (98 F) Resp 18 Wt 111.3 kg (245 lb 6 oz) LMP 01/10/2025 (Exact Date) SpO2 99% BMI 38.43 kg/m Physical Exam Constitutional: Appearance: Normal appearance. HENT: Head: Normocephalic. Jaw: No trismus, tenderness, swelling or pain on movement. Right Ear: Tympanic membrane, ear canal and external ear normal. Left Ear: Tympanic membrane, ear canal and external ear normal. Nose: No congestion. Mouth/Throat: Mouth: Mucous membranes are moist. Pharynx: Oropharynx is clear. Uvula midline. No oropharyngeal exudate or posterior oropharyngeal erythema. Eyes: Conjunctiva/sclera: Conjunctivae normal. Cardiovascular: Rate and Rhythm: Normal rate. Pulmonary: Effort: Pulmonary effort is normal. Breath sounds: Normal breath sounds. No wheezing, rhonchi or rales. Abdominal: Palpations: Abdomen is soft. Tenderness: There is no abdominal tenderness. There is no guarding or rebound. Musculoskeletal: General: Normal range of motion. Cervical back: Normal range of motion and neck supple. No edema or erythema. No pain with movement. Normal range of motion. Lymphadenopathy: Cervical: No cervical adenopathy. Skin: General: Skin is warm. Findings: No rash. Neurological: General: No focal deficit present. Mental Status: She is alert and oriented to person, place, and time. Mental status is at baseline. {ASSESSMENT/PLAN: 1. Sore throat - ICD9: 462, ICD10: J02.9 (primary diagnosis) - STREP A MOLECULAR (POC) 2. Viral illness - ICD9: 079.99, ICD10: B34.9 - Discussed viral etiology and rationale for treatment. - Symptomatic treatment with prn analgesia - Supportive care with fluids and rest Strep test negative. Clear fluid noted behind bilateral TMs. TMs pearly yarbrough and intact. No evidence of infection. Treat as viral etiology. Patient was educated on supportive therapies. Patient will follow up with primary care provider as needed. Patient was instructed to immediately proceed to emergency room for any new, worsening, or symptoms lasting longer than anticipated. The patient's clinical presentation is otherwise unremarkable at this time. Based on exam and clinical finding, the patient is stable for discharge. Plan of care was discussed with patient. Patient verbalizes understanding and agrees to plan of care. This note was generated using [employer] software. It may contain errors in wording, punctuation, or spelling. Vladislav Castaneda APRN.PRICILA History and Record Review Clinical information obtained from an independent historian. History obtained from or confirmed by: parent. External record(s) reviewed: prior outpatient record. Disposition The patient was discharged. Procedures documented in this encounter 01-20-2025 Note HNO ID: [id number] Author: NANDO NÚÑEZ APRN.PRICILA Service: ? Author Type: Nurse Practitioner Type: Progress Notes Filed: 01/20/2025 16:49 Note Text: [facility] Subjective Daksha Dos Santos is a 39 year old female. HPI Daksha Dos Santos is a 39 year old female who presents today for CC of st, cough, congestion, ear pain. This started 1 day ago. Has tried otc medication for relief. Symptoms are worsened by nothing. Risk factors sick exposures at home. Nonsmoker. Denies possibility of being . .Patient presents with: Sore Throat Flu Like Symptoms PAST MEDICAL HISTORY Diagnosis Date NEGATIVE MEDICAL HISTORY No past surgical history on file. ALLERGIES Patient has no known allergies. MEDICATIONS ARIPiprazole (ABILIFY) 5 mg tablet Take 2.5 mg by mouth daily at bedtime. predniSONE (DELTASONE) 10 mg tablet Take 4 tabs daily for 3 days, then 2 tabs daily for 3 days, then 1 tab daily for 3 days with food. sertraline (ZOLOFT) 50 mg tablet Take 1 tablet by mouth every afternoon. guanFACINE (INTUNIV) 1 mg ER 24 hr tablet(s) Take 1 tablet by mouth daily at bedtime. fluticasone (FLONASE) 50 mcg/actuation nasal spray Use 2 Sprays in each nostril once daily. Rinse mouth after use. (Patient not taking: Reported on 01/14/2025) ibuprofen (MOTRIN) 600 mg tablet Take 1 tablet by mouth every 6 hours as needed for pain. (Patient not taking: Reported on 12/28/2024) albuterol HFA (PROAIR HFA) 90 mcg/actuation inhaler Inhale 2 Puffs as instructed every 6 hours as needed. (Patient not taking: Reported on 12/28/2024) albuterol HFA (PROAIR HFA) 90 mcg/actuation inhaler Inhale 2 Puffs as instructed every 4 hours as needed. (Patient not taking: Reported on 12/28/2024) ibuprofen (MOTRIN) 800 mg tablet Take 1 tablet by mouth every 8 hours as needed for Pain. (Patient not taking: Reported on 12/28/2024) acetaminophen (TYLENOL) 500 mg tablet Take 1 tablet by mouth every 8 hours as needed. (Patient not taking: Reported on 12/28/2024) No family history on file. Social History Tobacco Use Smoking status: Former Types: Cigarettes Passive exposure: Current Smokeless tobacco: Never Substance Use Topics Alcohol use: No Drug use: No Patient presents with: Sore Throat Flu Like Symptoms HPI Review of Systems Constitutional: Negative for chills, fatigue and fever. HENT: Positive for ear pain, rhinorrhea and sore throat. Negative for ear discharge, sinus pressure and sinus pain. Eyes: Negative for discharge and redness. Respiratory: Positive for cough. Negative for shortness of breath and wheezing. Cardiovascular: Negative for chest pain. Skin: Negative for rash. Objective BP 94/72 Pulse 83 Resp 16 Wt 108 kg (238 lb 1.6 oz) LMP 01/10/2025 (Exact Date) SpO2 97% BMI 37.29 kg/m? Physical Exam Constitutional: General: She is not in acute distress. Appearance: She is not toxic-appearing or diaphoretic. HENT: Head: Normocephalic and atraumatic. Right Ear: Hearing, tympanic membrane, ear canal and external ear normal. Left Ear: Hearing, tympanic membrane, ear canal and external ear normal. Nose: Nose normal. Mouth/Throat: Pharynx: Uvula midline. Eyes: General: Lids are normal. No scleral icterus. Right eye: No discharge. Left eye: No discharge. Conjunctiva/sclera: Conjunctivae normal. Pupils: Pupils are equal, round, and reactive to light. Neck: Trachea: Trachea normal. Cardiovascular: Rate and Rhythm: Normal rate and regular rhythm. Heart sounds: Normal heart sounds. Pulmonary: Effort: Pulmonary effort is normal. Breath sounds: Normal breath sounds. Musculoskeletal: Cervical back: Normal range of motion and neck supple. Lymphadenopathy: Cervical: No cervical adenopathy. Skin: Findings: No rash. Neurological: Mental Status: She is alert and oriented to person, place, and time. ASSESSMENT/PLAN: 1. URI, acute - ICD9: 465.9, ICD10: J06.9 (primary diagnosis) - Discussed viral etiology and rationale for treatment. - Symptomatic treatment with prn analgesia - Supportive care with fluids and rest - Follow up in 3-5 days if symptoms persist or sooner if worsening of symptoms 2. Sore throat - ICD9: 462, ICD10: J02.9 Negative, viral - STREP A MOLECULAR (POC) Nando Núñez APRN.TAKE UP OPERATOR MDM Procedures [facility] 01-20-2025 History of Presen t illness Narrative [facility] Subjective Daksha Dos Santos is a 39 year old female. HPI Daksha Dos Santos is a 39 year old female who presents today for CC of st, cough, congestion, ear pain. This started 1 day ago. Has tried otc medication for relief. Symptoms are worsened by nothing. Risk factors sick exposures at home. Nonsmoker. Denies possibility of being . .Patient presents with: Sore Throat Flu Like Symptoms PAST MEDICAL HISTORY Diagnosis Date NEGATIVE MEDICAL HISTORY No past surgical history on file. ALLERGIES Patient has no known allergies. MEDICATIONS ARIPiprazole (ABILIFY) 5 mg tablet Take 2.5 mg by mouth daily at bedtime. predniSONE (DELTASONE) 10 mg tablet Take 4 tabs daily for 3 days, then 2 tabs daily for 3 days, then 1 tab daily for 3 days with food. sertraline (ZOLOFT) 50 mg tablet Take 1 tablet by mouth every afternoon. guanFACINE (INTUNIV) 1 mg ER 24 hr tablet(s) Take 1 tablet by mouth daily at bedtime. fluticasone (FLONASE) 50 mcg/actuation nasal spray Use 2 Sprays in each nostril once daily. Rinse mouth after use. (Patient not taking: Reported on 01/14/2025) ibuprofen (MOTRIN) 600 mg tablet Take 1 tablet by mouth every 6 hours as needed for pain. (Patient not taking: Reported on 12/28/2024) albuterol HFA (PROAIR HFA) 90 mcg/actuation inhaler Inhale 2 Puffs as instructed every 6 hours as needed. (Patient not taking: Reported on 12/28/2024) albuterol HFA (PROAIR HFA) 90 mcg/actuation inhaler Inhale 2 Puffs as instructed every 4 hours as needed. (Patient not taking: Reported on 12/28/2024) ibuprofen (MOTRIN) 800 mg tablet Take 1 tablet by mouth every 8 hours as needed for Pain. (Patient not taking: Reported on 12/28/2024) acetaminophen (TYLENOL) 500 mg tablet Take 1 tablet by mouth every 8 hours as needed. (Patient not taking: Reported on 12/28/2024) No family history on file. Social History Tobacco Use Smoking status: Former Types: Cigarettes Passive exposure: Current Smokeless tobacco: Never Substance Use Topics Alcohol use: No Drug use: No Patient presents with: Sore Throat Flu Like Symptoms HPI Review of Systems Constitutional: Negative for chills, fatigue and fever. HENT: Positive for ear pain, rhinorrhea and sore throat. Negative for ear discharge, sinus pressure and sinus pain. Eyes: Negative for discharge and redness. Respiratory: Positive for cough. Negative for shortness of breath and wheezing. Cardiovascular: Negative for chest pain. Skin: Negative for rash. Objective BP 94/72 Pulse 83 Resp 16 Wt 108 kg (238 lb 1.6 oz) LMP 01/10/2025 (Exact Date) SpO2 97% BMI 37.29 kg/m Physical Exam Constitutional: General: She is not in acute distress. Appearance: She is not toxic-appearing or diaphoretic. HENT: Head: Normocephalic and atraumatic. Right Ear: Hearing, tympanic membrane, ear canal and external ear normal. Left Ear: Hearing, tympanic membrane, ear canal and external ear normal. Nose: Nose normal. Mouth/Throat: Pharynx: Uvula midline. Eyes: General: Lids are normal. No scleral icterus. Right eye: No discharge. Left eye: No discharge. Conjunctiva/sclera: Conjunctivae normal. Pupils: Pupils are equal, round, and reactive to light. Neck: Trachea: Trachea normal. Cardiovascular: Rate and Rhythm: Normal rate and regular rhythm. Heart sounds: Normal heart sounds. Pulmonary: Effort: Pulmonary effort is normal. Breath sounds: Normal breath sounds. Musculoskeletal: Cervical back: Normal range of motion and neck supple. Lymphadenopathy: Cervical: No cervical adenopathy. Skin: Findings: No rash. Neurological: Mental Status: She is alert and oriented to person, place, and time. ASSESSMENT/PLAN: 1. URI, acute - ICD9: 465.9, ICD10: J06.9 (primary diagnosis) - Discussed viral etiology and rationale for treatment. - Symptomatic treatment with prn analgesia - Supportive care with fluids and rest - Follow up in 3-5 days if symptoms persist or sooner if worsening of symptoms 2. Sore throat - ICD9: 462, ICD10: J02.9 Negative, viral - STREP A MOLECULAR (POC) Nando Núñez APRN.TAKE UP OPERATOR MDM Procedures documented in this encounter 01-15-2025 Telephone encount er Note Left message on voicemail with negative test results. Work Phone: 01-15-2025 Miscellaneous Notes Formattin g of this note might be different from the original. Left message on voicemail with negative test results. documented in this encounter 01-14-2025 Note SARS-COV-2 (AGENT OF COVID-19) RNA: Not detected INFLUENZA A RNA: Not detected INFLUENZA B RNA: Not detected RESPIRATORY SYNCYTIAL VIRUS (RSV) RNA: Not detected [facility] Comment on above: Performed By: #### [id number] ####[facility] LABCLIA [id number] [address] OF [facility] 01-14-2025 Note HNO ID: [id number] Author: NANDO NÚÑEZ APRN.CNP Service: ? Author Type: Nurse Practitioner Type: Progress Notes Filed: 01/14/2025 10:21 Note Text: [facility] Subjective Daksha Dos Santos is a 39 year old female. HPI HPI Daksha Dos Santos is a 39 year old female who presents today for CC of st, cough, congestion, ear pain, upset stomach. This started 2 days ago. Has tried otc medication for relief. Symptoms are worsened by nothing. Risk factors sick exposures. .Patient presents with: Ear Pain: R ear pain, sore throat, runny nose, nasal congestion, chest tightness, stomachache x2 days PAST MEDICAL HISTORY Diagnosis Date NEGATIVE MEDICAL HISTORY No past surgical history on file. ALLERGIES Patient has no known allergies. MEDICATIONS ARIPiprazole (ABILIFY) 5 mg tablet Take 2.5 mg by mouth daily at bedtime. sertraline (ZOLOFT) 50 mg tablet Take 1 tablet by mouth every afternoon. guanFACINE (INTUNIV) 1 mg ER 24 hr tablet(s) Take 1 tablet by mouth daily at bedtime. fluticasone (FLONASE) 50 mcg/actuation nasal spray Use 2 Sprays in each nostril once daily. Rinse mouth after use. (Patient not taking: Reported on 01/14/2025) ibuprofen (MOTRIN) 600 mg tablet Take 1 tablet by mouth every 6 hours as needed for pain. (Patient not taking: Reported on 12/28/2024) albuterol HFA (PROAIR HFA) 90 mcg/actuation inhaler Inhale 2 Puffs as instructed every 6 hours as needed. (Patient not taking: Reported on 12/28/2024) albuterol HFA (PROAIR HFA) 90 mcg/actuation inhaler Inhale 2 Puffs as instructed every 4 hours as needed. (Patient not taking: Reported on 12/28/2024) ibuprofen (MOTRIN) 800 mg tablet Take 1 tablet by mouth every 8 hours as needed for Pain. (Patient not taking: Reported on 12/28/2024) acetaminophen (TYLENOL) 500 mg tablet Take 1 tablet by mouth every 8 hours as needed. (Patient not taking: Reported on 12/28/2024) No family history on file. Social History Tobacco Use Smoking status: Former Types: Cigarettes Passive exposure: Current Smokeless tobacco: Never Substance Use Topics Alcohol use: No Drug use: No Review of Systems Constitutional: Negative for chills, fatigue and fever. HENT: Positive for ear pain, rhinorrhea and sore throat. Negative for ear discharge, sinus pressure and sinus pain. Eyes: Negative for discharge and redness. Respiratory: Positive for cough. Negative for shortness of breath and wheezing. Cardiovascular: Negative for chest pain. Skin: Negative for rash. Objective BP 115/76 Pulse 71 Temp 36.3 ?C (97.4 ?F) Resp 20 Wt 107 kg (235 lb 14.3 oz) LMP 01/10/2025 (Exact Date) SpO2 97% BMI 36.95 kg/m? Physical Exam Constitutional: General: She is not in acute distress. Appearance: She is not toxic-appearing or diaphoretic. HENT: Head: Normocephalic and atraumatic. Right Ear: Hearing, tympanic membrane, ear canal and external ear normal. Left Ear: Hearing, tympanic membrane, ear canal and external ear normal. Nose: Nose normal. Mouth/Throat: Pharynx: Uvula midline. Eyes: General: Lids are normal. No scleral icterus. Right eye: No discharge. Left eye: No discharge. Conjunctiva/sclera: Conjunctivae normal. Pupils: Pupils are equal, round, and reactive to light. Neck: Trachea: Trachea normal. Cardiovascular: Rate and Rhythm: Normal rate and regular rhythm. Heart sounds: Normal heart sounds. Pulmonary: Effort: Pulmonary effort is normal. Breath sounds: Normal breath sounds. Musculoskeletal: Cervical back: Normal range of motion and neck supple. Lymphadenopathy: Cervical: No cervical adenopathy. Skin: Findings: No rash. Neurological: Mental Status: She is alert and oriented to person, place, and time. Assessment and Plan MDM Procedures ASSESSMENT/PLAN: 1. URI, acute - ICD9: 465.9, ICD10: J06.9 (primary diagnosis) - Discussed viral etiology and rationale for treatment. - Symptomatic treatment with prn analgesia - Supportive care with fluids and rest - Follow up in 3-5 days if symptoms persist or sooner if worsening of symptoms - COVID AND INFLUENZA A/B AND RSV PCR, ROUTINE 2. Sore throat - ICD9: 462, ICD10: J02.9 Negative. - STREP A MOLECULAR (POC) 3. ETD (Eustachian tube dysfunction), right - ICD9: 381.81, ICD10: H69.91 -use medication as prescribed -follow up if symptoms persist, worsen, change - PREDNISONE 10 MG TABLET Nando Núñez APRN.[facility] 01-14-2025 History of Presen t illness Narrative [facility] Subjective Daksha Dos Santos is a 39 year old female. HPI HPI Daksha Dos Santos is a 39 year old female who presents today for CC of st, cough, congestion, ear pain, upset stomach. This started 2 days ago. Has tried otc medication for relief. Symptoms are worsened by nothing. Risk factors sick exposures. .Patient presents with: Ear Pain: R ear pain, sore throat, runny nose, nasal congestion, chest tightness, stomachache x2 days PAST MEDICAL HISTORY Diagnosis Date NEGATIVE MEDICAL HISTORY No past surgical history on file. ALLERGIES Patient has no known allergies. MEDICATIONS ARIPiprazole (ABILIFY) 5 mg tablet Take 2.5 mg by mouth daily at bedtime. sertraline (ZOLOFT) 50 mg tablet Take 1 tablet by mouth every afternoon. guanFACINE (INTUNIV) 1 mg ER 24 hr tablet(s) Take 1 tablet by mouth daily at bedtime. fluticasone (FLONASE) 50 mcg/actuation nasal spray Use 2 Sprays in each nostril once daily. Rinse mouth after use. (Patient not taking: Reported on 01/14/2025) ibuprofen (MOTRIN) 600 mg tablet Take 1 tablet by mouth every 6 hours as needed for pain. (Patient not taking: Reported on 12/28/2024) albuterol HFA (PROAIR HFA) 90 mcg/actuation inhaler Inhale 2 Puffs as instructed every 6 hours as needed. (Patient not taking: Reported on 12/28/2024) albuterol HFA (PROAIR HFA) 90 mcg/actuation inhaler Inhale 2 Puffs as instructed every 4 hours as needed. (Patient not taking: Reported on 12/28/2024) ibuprofen (MOTRIN) 800 mg tablet Take 1 tablet by mouth every 8 hours as needed for Pain. (Patient not taking: Reported on 12/28/2024) acetaminophen (TYLENOL) 500 mg tablet Take 1 tablet by mouth every 8 hours as needed. (Patient not taking: Reported on 12/28/2024) No family history on file. Social History Tobacco Use Smoking status: Former Types: Cigarettes Passive exposure: Current Smokeless tobacco: Never Substance Use Topics Alcohol use: No Drug use: No Review of Systems Constitutional: Negative for chills, fatigue and fever. HENT: Positive for ear pain, rhinorrhea and sore throat. Negative for ear discharge, sinus pressure and sinus pain. Eyes: Negative for discharge and redness. Respiratory: Positive for cough. Negative for shortness of breath and wheezing. Cardiovascular: Negative for chest pain. Skin: Negative for rash. Objective BP 115/76 Pulse 71 Temp 36.3 C (97.4 F) Resp 20 Wt 107 kg (235 lb 14.3 oz) LMP 01/10/2025 (Exact Date) SpO2 97% BMI 36.95 kg/m Physical Exam Constitutional: General: She is not in acute distress. Appearance: She is not toxic-appearing or diaphoretic. HENT: Head: Normocephalic and atraumatic. Right Ear: Hearing, tympanic membrane, ear canal and external ear normal. Left Ear: Hearing, tympanic membrane, ear canal and external ear normal. Nose: Nose normal. Mouth/Throat: Pharynx: Uvula midline. Eyes: General: Lids are normal. No scleral icterus. Right eye: No discharge. Left eye: No discharge. Conjunctiva/sclera: Conjunctivae normal. Pupils: Pupils are equal, round, and reactive to light. Neck: Trachea: Trachea normal. Cardiovascular: Rate and Rhythm: Normal rate and regular rhythm. Heart sounds: Normal heart sounds. Pulmonary: Effort: Pulmonary effort is normal. Breath sounds: Normal breath sounds. Musculoskeletal: Cervical back: Normal range of motion and neck supple. Lymphadenopathy: Cervical: No cervical adenopathy. Skin: Findings: No rash. Neurological: Mental Status: She is alert and oriented to person, place, and time. Assessment and Plan MDM Procedures ASSESSMENT/PLAN: 1. URI, acute - ICD9: 465.9, ICD10: J06.9 (primary diagnosis) - Discussed viral etiology and rationale for treatment. - Symptomatic treatment with prn analgesia - Supportive care with fluids and rest - Follow up in 3-5 days if symptoms persist or sooner if worsening of symptoms - COVID & INFLUENZA A/B & RSV PCR, ROUTINE 2. Sore throat - ICD9: 462, ICD10: J02.9 Negative. - STREP A MOLECULAR (POC) 3. ETD (Eustachian tube dysfunction), right - ICD9: 381.81, ICD10: H69.91 -use medication as prescribed -follow up if symptoms persist, worsen, change - PREDNISONE 10 MG TABLET Nando Núñez APRN.TAKE UP OPERATOR documented in this encounter 12-28-2024 Instructions Rosalba Hoffman APRN.CNP - 12/28/2024 1:39 PM EST ASSESSMENT/PLAN: 1. Otitis media with effusion, right - ICD9: 381.4, ICD10: H65.91 - Will begin treatment with as per antibiotic as written, see orders - Supportive care with plenty of fluids, rest, and analgesia prn. - AMOXICILLIN 875 MG TABLET - FLUTICASONE PROPIONATE 50 MCG/ACTUATION NASAL SPRAY,SUSPENSION - Follow-up with your PCP in 3-5 days if symptoms have not improved or sooner if symptoms worsen - Discussed red flags and need for immediate medical evaluation if any occur. - Discussed supportive care treatment with fluids, rest and analgesia. - Discussed expected course of illness Rosalba Hoffman APRN.CNP OTITIS MEDIA GENERAL INFORMATION: Otitis media is an infection of the middle ear. The middle ear sits behind the eardrum. This infection may be caused by a virus or bacteria and often follows a cold. Children often have repeat ear infections. Otitis media is not contagious. INSTRUCTIONS: 1. An antibiotic has been prescribed. It should be taken exactly as prescribed. Do not stop the medicine even if the symptoms go away. 2. [id number] pain medication may be taken or other pain medication as prescribed by the doctor. 3. Nothing should be placed in the ear unless instructed by your doctor. 4. The patient may return to school/daycare or work when the temperature is normal (98.6 F or 37 C). 5. The patient should not swim while the ear is infected. CONTACT YOUR DOCTOR IF YOU OR YOUR CHILD: 1. Does not feel better within 36 hours. 2. Develops a temperature over 102E F (39E C). 3. Starts vomiting or has diarrhea. 4. Develops drainage from the affected ear. 5. Has any new problem that may be related to the medicine prescribed. RETURN TO THE ED IF: 1. You or your child has a severe headache or pain around the ear. 2. You or your child notice swelling around the ear. 3. You or your child has a seizure (convulsion), twitching of the facial muscles, or passes out. 4. You or your child is dizzy, has a stiff neck, or cannot walk or talk normally. 5. Your child becomes more irritable or listless (not interested in his or her surroundings, does not get soothed by you holding him or her). documented in this encounter 12-28-2024 Note HNO ID: [id number] Author: ROSALBA HOFFMAN APRN.TAKE UP OPERATOR Service: ? Author Type: Nurse Practitioner Type: Progress Notes Filed: 12/28/2024 13:41 Note Text: Subjective Ear Pain Associated symptoms include congestion. Pertinent negatives include no chills, fever or sore throat. Daksha Dos Santos is a 39 year old female who presents with right ear pain since last night. Describes pain as throbbing and rates 2/10 now but states it was worse last night. She has had some decreased hearing in right ear. She has recently had some nasal congestion and drainage. She did not take any medication for this. Review of Systems Constitutional: Negative for chills, fever and malaise/fatigue. HENT: Positive for congestion, ear pain and hearing loss. Negative for sore throat. Respiratory: Negative. Cardiovascular: Negative. BP 118/78 Pulse 70 Temp 37.1 ?C (98.8 ?F) Resp 21 Wt 108.5 kg (239 lb 3.2 oz) LMP 02/29/2024 SpO2 98% BMI 37.46 kg/m? PAST MEDICAL HISTORY Diagnosis Date NEGATIVE MEDICAL HISTORY No past surgical history on file. ALLERGIES Patient has no known allergies. MEDICATIONS sertraline (ZOLOFT) 50 mg tablet Take 1 tablet by mouth every afternoon. guanFACINE (INTUNIV) 1 mg ER 24 hr tablet(s) Take 1 tablet by mouth daily at bedtime. amoxicillin (AMOXIL) 875 mg tablet Take 1 tablet by mouth two times a day for 7 days. fluticasone (FLONASE) 50 mcg/actuation nasal spray Use 2 Sprays in each nostril once daily. Rinse mouth after use. ibuprofen (MOTRIN) 600 mg tablet Take 1 tablet by mouth every 6 hours as needed for pain. (Patient not taking: Reported on 12/28/2024) albuterol HFA (PROAIR HFA) 90 mcg/actuation inhaler Inhale 2 Puffs as instructed every 6 hours as needed. (Patient not taking: Reported on 12/28/2024) albuterol HFA (PROAIR HFA) 90 mcg/actuation inhaler Inhale 2 Puffs as instructed every 4 hours as needed. (Patient not taking: Reported on 12/28/2024) ibuprofen (MOTRIN) 800 mg tablet Take 1 tablet by mouth every 8 hours as needed for Pain. (Patient not taking: Reported on 12/28/2024) acetaminophen (TYLENOL) 500 mg tablet Take 1 tablet by mouth every 8 hours as needed. (Patient not taking: Reported on 12/28/2024) No family history on file. Social History Tobacco Use Smoking status: Former Types: Cigarettes Passive exposure: Current Smokeless tobacco: Never Substance Use Topics Alcohol use: No Drug use: No Objective Physical Exam Vitals and nursing note reviewed. Constitutional: General: She is not in acute distress. Appearance: Normal appearance. She is not ill-appearing. HENT: Right Ear: Ear canal and external ear normal. Decreased hearing noted. A middle ear effusion is present. Tympanic membrane is injected. Left Ear: Tympanic membrane, ear canal and external ear normal. Nose: Nose normal. Mouth/Throat: Pharynx: Uvula midline. Cardiovascular: Rate and Rhythm: Normal rate and regular rhythm. Heart sounds: Normal heart sounds. Pulmonary: Effort: Pulmonary effort is normal. No respiratory distress. Breath sounds: Normal breath sounds. No wheezing or rales. Skin: General: Skin is warm and dry. Findings: No erythema or rash. Neurological: Mental Status: She is alert. ASSESSMENT/PLAN: 1. Otitis media with effusion, right - ICD9: 381.4, ICD10: H65.91 - Will begin treatment with as per antibiotic as written, see orders - Supportive care with plenty of fluids, rest, and analgesia prn. - AMOXICILLIN 875 MG TABLET - FLUTICASONE PROPIONATE 50 MCG/ACTUATION NASAL SPRAY,SUSPENSION - Follow-up with your PCP in 3-5 days if symptoms have not improved or sooner if symptoms worsen - Discussed red flags and need for immediate medical evaluation if any occur. - Discussed supportive care treatment with fluids, rest and analgesia. - Discussed expected course of illness Rosalba Hoffman APRN.[facility] 12-28-2024 History of Presen t illness Narrative Subjective Ear Pain Associated symptoms include congestion. Pertinent negatives include no chills, fever or sore throat. Daksha Dos Santos is a 39 year old female who presents with right ear pain since last night. Describes pain as throbbing and rates 2/10 now but states it was worse last night. She has had some decreased hearing in right ear. She has recently had some nasal congestion and drainage. She did not take any medication for this. Review of Systems Constitutional: Negative for chills, fever and malaise/fatigue. HENT: Positive for congestion, ear pain and hearing loss. Negative for sore throat. Respiratory: Negative. Cardiovascular: Negative. BP 118/78 Pulse 70 Temp 37.1 C (98.8 F) Resp 21 Wt 108.5 kg (239 lb 3.2 oz) LMP 02/29/2024 SpO2 98% BMI 37.46 kg/m PAST MEDICAL HISTORY Diagnosis Date NEGATIVE MEDICAL HISTORY No past surgical history on file. ALLERGIES Patient has no known allergies. MEDICATIONS sertraline (ZOLOFT) 50 mg tablet Take 1 tablet by mouth every afternoon. guanFACINE (INTUNIV) 1 mg ER 24 hr tablet(s) Take 1 tablet by mouth daily at bedtime. amoxicillin (AMOXIL) 875 mg tablet Take 1 tablet by mouth two times a day for 7 days. fluticasone (FLONASE) 50 mcg/actuation nasal spray Use 2 Sprays in each nostril once daily. Rinse mouth after use. ibuprofen (MOTRIN) 600 mg tablet Take 1 tablet by mouth every 6 hours as needed for pain. (Patient not taking: Reported on 12/28/2024) albuterol HFA (PROAIR HFA) 90 mcg/actuation inhaler Inhale 2 Puffs as instructed every 6 hours as needed. (Patient not taking: Reported on 12/28/2024) albuterol HFA (PROAIR HFA) 90 mcg/actuation inhaler Inhale 2 Puffs as instructed every 4 hours as needed. (Patient not taking: Reported on 12/28/2024) ibuprofen (MOTRIN) 800 mg tablet Take 1 tablet by mouth every 8 hours as needed for Pain. (Patient not taking: Reported on 12/28/2024) acetaminophen (TYLENOL) 500 mg tablet Take 1 tablet by mouth every 8 hours as needed. (Patient not taking: Reported on 12/28/2024) No family history on file. Social History Tobacco Use Smoking status: Former Types: Cigarettes Passive exposure: Current Smokeless tobacco: Never Substance Use Topics Alcohol use: No Drug use: No Objective Physical Exam Vitals and nursing note reviewed. Constitutional: General: She is not in acute distress. Appearance: Normal appearance. She is not ill-appearing. HENT: Right Ear: Ear canal and external ear normal. Decreased hearing noted. A middle ear effusion is present. Tympanic membrane is injected. Left Ear: Tympanic membrane, ear canal and external ear normal. Nose: Nose normal. Mouth/Throat: Pharynx: Uvula midline. Cardiovascular: Rate and Rhythm: Normal rate and regular rhythm. Heart sounds: Normal heart sounds. Pulmonary: Effort: Pulmonary effort is normal. No respiratory distress. Breath sounds: Normal breath sounds. No wheezing or rales. Skin: General: Skin is warm and dry. Findings: No erythema or rash. Neurological: Mental Status: She is alert. ASSESSMENT/PLAN: 1. Otitis media with effusion, right - ICD9: 381.4, ICD10: H65.91 - Will begin treatment with as per antibiotic as written, see orders - Supportive care with plenty of fluids, rest, and analgesia prn. - AMOXICILLIN 875 MG TABLET - FLUTICASONE PROPIONATE 50 MCG/ACTUATION NASAL SPRAY,SUSPENSION - Follow-up with your PCP in 3-5 days if symptoms have not improved or sooner if symptoms worsen - Discussed red flags and need for immediate medical evaluation if any occur. - Discussed supportive care treatment with fluids, rest and analgesia. - Discussed expected course of illness Rosalba Hoffman APRN.TAKE UP OPERATOR documented in this encounter 07-22-2024 Note HNO ID: [id number] Author: TANO BURNHAM APRN.PRICILA Service: ? Author Type: Nurse Practitioner Type: Progress Notes Filed: 07/22/2024 12:48 Note Text: CC: Patient presents with: Eye Problem: right redness, irritated and discharge x last night HPI: Daksha Dos Santos is a 39 year old female who presents to the office with complaint of eye redness and drainage since last night. Symptoms are staying the same. Associated symptoms includes woke up with crusting. Denies vision changes or eye pain Treatments tried include nothing so far. with no relief of symptoms. Sick contacts: unknown. History of asthma, frequent episodes of bronchitis, chronic bronchitis, bronchiectasis or COPD: No Smoker: No Seasonal/environmental allergies: No The ROS is otherwise negative. The patient's pmh, medications, allergies, and past visits are reviewed. PHYSICAL EXAM: BP 120/76 Pulse 88 Temp 36.9 ?C (98.5 ?F) Resp 18 Wt 110 kg (242 lb 8.1 oz) LMP 02/29/2024 SpO2 96% BMI 37.98 kg/m? General appearance: alert, cooperative, pleasant, in no acute distress Head: Normocephalic Eyes: EOM's intact, conjunctiva pink and moist, no icterus, sclera white, non-injected on left and right has mild erythema noted. PAST MEDICAL HISTORY No date: NEGATIVE MEDICAL HISTORY No past surgical history on file. ALLERGIES Patient has no known allergies. MEDICATIONS ibuprofen (MOTRIN) 600 mg tablet Take 1 tablet by mouth every 6 hours as needed for pain. albuterol HFA (PROAIR HFA) 90 mcg/actuation inhaler Inhale 2 Puffs as instructed every 6 hours as needed. albuterol HFA (PROAIR HFA) 90 mcg/actuation inhaler Inhale 2 Puffs as instructed every 4 hours as needed. ibuprofen (MOTRIN) 800 mg tablet Take 1 tablet by mouth every 8 hours as needed for Pain. acetaminophen (TYLENOL) 500 mg tablet Take 1 tablet by mouth every 8 hours as needed. trimethoprim-polymyxin (POLYTRIM) 10,000 unit- 1 mg/mL ophthalmic solution Use 1 Drop in the right eye every 4 hours for 7 days. No family history on file. Social History Tobacco Use Smoking status: Former Types: Cigarettes Passive exposure: Current Smokeless tobacco: Never Substance Use Topics Alcohol use: No Drug use: No ASSESSMENT/PLAN: 1. [place] eye disease of right eye - ICD9: 372.03, ICD10: H10.021 - POLYMYXIN B SULFATE 10,000 UNIT-TRIMETHOPRIM 1 MG/ML EYE DROPS Prescription instructions reviewed with patient as applicable. Potential red flag symptoms discussed with the patient. Reviewed appropriate action plan to take if red flag symptoms occur. Patient agreeable to treatment plan. Will follow up with eye dr if anything changes Tano Burnham APRN.TAKE UP OPERATOR [facility] 07-22-2024 History of Presen t illness Narrative CC: Patient presents with: Eye Problem: right redness, irritated and discharge x last night HPI: Daksha Dos Santos is a 39 year old female who presents to the office with complaint of eye redness and drainage since last night. Symptoms are staying the same. Associated symptoms includes woke up with crusting. Denies vision changes or eye pain Treatments tried include nothing so far. with no relief of symptoms. Sick contacts: unknown. History of asthma, frequent episodes of bronchitis, chronic bronchitis, bronchiectasis or COPD: No Smoker: No Seasonal/environmental allergies: No The ROS is otherwise negative. The patient's pmh, medications, allergies, and past visits are reviewed. PHYSICAL EXAM: BP 120/76 Pulse 88 Temp 36.9 C (98.5 F) Resp 18 Wt 110 kg (242 lb 8.1 oz) LMP 02/29/2024 SpO2 96% BMI 37.98 kg/m General appearance: alert, cooperative, pleasant, in no acute distress Head: Normocephalic Eyes: EOM's intact, conjunctiva pink and moist, no icterus, sclera white, non-injected on left and right has mild erythema noted. PAST MEDICAL HISTORY No date: NEGATIVE MEDICAL HISTORY No past surgical history on file. ALLERGIES Patient has no known allergies. MEDICATIONS ibuprofen (MOTRIN) 600 mg tablet Take 1 tablet by mouth every 6 hours as needed for pain. albuterol HFA (PROAIR HFA) 90 mcg/actuation inhaler Inhale 2 Puffs as instructed every 6 hours as needed. albuterol HFA (PROAIR HFA) 90 mcg/actuation inhaler Inhale 2 Puffs as instructed every 4 hours as needed. ibuprofen (MOTRIN) 800 mg tablet Take 1 tablet by mouth every 8 hours as needed for Pain. acetaminophen (TYLENOL) 500 mg tablet Take 1 tablet by mouth every 8 hours as needed. trimethoprim-polymyxin (POLYTRIM) 10,000 unit- 1 mg/mL ophthalmic solution Use 1 Drop in the right eye every 4 hours for 7 days. No family history on file. Social History Tobacco Use Smoking status: Former Types: Cigarettes Passive exposure: Current Smokeless tobacco: Never Substance Use Topics Alcohol use: No Drug use: No ASSESSMENT/PLAN: 1. [place] eye disease of right eye - ICD9: 372.03, ICD10: H10.021 - POLYMYXIN B SULFATE 10,000 UNIT-TRIMETHOPRIM 1 MG/ML EYE DROPS Prescription instructions reviewed with patient as applicable. Potential red flag symptoms discussed with the patient. Reviewed appropriate action plan to take if red flag symptoms occur. Patient agreeable to treatment plan. Will follow up with eye dr if anything changes Tano Burnham APRN.TAKE UP OPERATOR documented in this encounter 07-07-2024 Telephone encount er Note Patient notified.Allison Franklin LPN 07-07-2024 Miscellaneous Notes Formattin g of this note might be different from the original. Patient notified.Allison Franklin LPN Please let patient know she tested positive for COVID-19. Supportive treatment at home. Isolate until 24 hours fever free and symptoms improving documented in this encounter 07-07-2024 Telephone encount er Note Please let patient know she tested positive for COVID-19. Supportive treatment at home. Isolate until 24 hours fever free and symptoms improving Work Phone: 07-06-2024 Note HNO ID: [id number] Author: LUCRECIA ARREGUIN APRN.TAKE UP OPERATOR Service: ? Author Type: Nurse Practitioner Type: Progress Notes Filed: 07/06/2024 17:15 Note Text: This note was created using [employer]. Subjective Daksha Dos Santos is a 39 year old female. 39 year old female with no significant PMH presents for illness. Acute onset yesterday +fever +fatigue +headache +body aches +cough Denies emesis Denies diarrhea Denies SOB Denies dyspnea. Took pain reliever and fever library aide Denies ill contacts Works at [employer] that she felt similar to prior bouts of COVID The history is provided by the patient. No vendor analyst was used. URI She complains of cough. There is no chest tightness, difficulty breathing, frequent throat clearing, hemoptysis, hoarse voice, shortness of breath, sputum production or wheezing. This is a new problem. The current episode started yesterday. The problem occurs constantly. The problem has been gradually worsening. The cough is non-productive. Associated symptoms include appetite change, a fever, headaches, malaise/fatigue, myalgias, nasal congestion, postnasal drip, rhinorrhea and sneezing. Pertinent negatives include no chest pain, dyspnea on exertion, ear congestion, ear pain, heartburn, orthopnea, PND, sore throat, sweats, trouble swallowing or weight loss. Her symptoms are aggravated by nothing. Her symptoms are alleviated by nothing. She reports no improvement on treatment. There are no known risk factors for lung disease. There is no history of asthma, bronchiectasis, bronchitis, COPD, emphysema or pneumonia. PAST MEDICAL HISTORY No date: NEGATIVE MEDICAL HISTORY No past surgical history on file. ALLERGIES Patient has no known allergies. MEDICATIONS albuterol HFA (PROAIR HFA) 90 mcg/actuation inhaler Inhale 2 Puffs as instructed every 6 hours as needed. albuterol HFA (PROAIR HFA) 90 mcg/actuation inhaler Inhale 2 Puffs as instructed every 4 hours as needed. ibuprofen (MOTRIN) 800 mg tablet Take 1 tablet by mouth every 8 hours as needed for Pain. acetaminophen (TYLENOL) 500 mg tablet Take 1 tablet by mouth every 8 hours as needed. ibuprofen (MOTRIN) 600 mg tablet Take 1 tablet by mouth every 6 hours as needed for pain. No family history on file. Social History Tobacco Use Smoking status: Former Types: Cigarettes Passive exposure: Current Smokeless tobacco: Never Substance Use Topics Alcohol use: No Drug use: No Review of Systems Constitutional: Positive for appetite change, fatigue, fever and malaise/fatigue. Negative for weight loss. HENT: Positive for postnasal drip, rhinorrhea and sneezing. Negative for ear pain, hoarse voice, sore throat and trouble swallowing. Respiratory: Positive for cough. Negative for apnea, hemoptysis, sputum production, choking, chest tightness, shortness of breath and wheezing. Cardiovascular: Negative for chest pain, dyspnea on exertion and PND. Gastrointestinal: Negative for abdominal pain, diarrhea, heartburn, nausea and vomiting. Musculoskeletal: Positive for myalgias. Skin: Negative for color change, pallor and rash. Neurological: Positive for headaches. Negative for dizziness and facial asymmetry. Hematological: Negative for adenopathy. Does not bruise/bleed easily. Objective BP 116/64 Pulse 86 Temp 37 ?C (98.6 ?F) Resp 16 Wt 111.1 kg (244 lb 14.9 oz) LMP 02/29/2024 SpO2 96% BMI 38.36 kg/m? Physical Exam Vitals and nursing note reviewed. Constitutional: General: She is not in acute distress. Appearance: Normal appearance. She is normal weight. She is not ill-appearing, toxic-appearing or diaphoretic. HENT: Head: Normocephalic and atraumatic. Right Ear: Ear canal and external ear normal. Left Ear: Ear canal and external ear normal. Nose: Congestion present. No rhinorrhea. Mouth/Throat: Mouth: Mucous membranes are moist. Pharynx: Posterior oropharyngeal erythema present. No oropharyngeal exudate. Eyes: General: Right eye: No discharge. Left eye: No discharge. Extraocular Movements: Extraocular movements intact. Conjunctiva/sclera: Conjunctivae normal. Pupils: Pupils are equal, round, and reactive to light. Cardiovascular: Rate and Rhythm: Normal rate and regular rhythm. Pulses: Normal pulses. Heart sounds: Normal heart sounds. No murmur heard. No friction rub. Pulmonary: Effort: Pulmonary effort is normal. No respiratory distress. Breath sounds: Normal breath sounds. No stridor. No wheezing, rhonchi or rales. Chest: Chest wall: No tenderness. Abdominal: General: Abdomen is flat. There is no distension. Palpations: Abdomen is soft. There is no mass. Tenderness: There is no abdominal tenderness. There is no right CVA tenderness, left CVA tenderness, guarding or rebound. Hernia: No hernia is present. Musculoskeletal: General: No swelling, tenderness, deformity or signs of injury. Normal range (more content not included)... [facility] 07-06-2024 History of Presen t illness Narrative This note was created using NoteWriter. Subjective Daksha Dos Santos is a 39 year old female. 39 year old female with no significant PMH presents for illness. Acute onset yesterday +fever +fatigue +headache +body aches +cough Denies emesis Denies diarrhea Denies SOB Denies dyspnea. 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 No vendor analyst was used. URI She complains of cough. There is no chest tightness, difficulty breathing, frequent throat clearing, hemoptysis, hoarse voice, shortness of breath, sputum production or wheezing. This is a new problem. The current episode started yesterday. The problem occurs constantly. The problem has been gradually worsening. The cough is non-productive. Associated symptoms include appetite change, a fever, headaches, malaise/fatigue, myalgias, nasal congestion, postnasal drip, rhinorrhea and sneezing. Pertinent negatives include no chest pain, dyspnea on exertion, ear congestion, ear pain, heartburn, orthopnea, PND, sore throat, sweats, trouble swallowing or weight loss. Her symptoms are aggravated by nothing. Her symptoms are alleviated by nothing. She reports no improvement on treatment. There are no known risk factors for lung disease. There is no history of asthma, bronchiectasis, bronchitis, COPD, emphysema or pneumonia. PAST MEDICAL HISTORY No date: NEGATIVE MEDICAL HISTORY No past surgical history on file. ALLERGIES Patient has no known allergies. MEDICATIONS albuterol HFA (PROAIR HFA) 90 mcg/actuation inhaler Inhale 2 Puffs as instructed every 6 hours as needed. albuterol HFA (PROAIR HFA) 90 mcg/actuation inhaler Inhale 2 Puffs as instructed every 4 hours as needed. ibuprofen (MOTRIN) 800 mg tablet Take 1 tablet by mouth every 8 hours as needed for Pain. acetaminophen (TYLENOL) 500 mg tablet Take 1 tablet by mouth every 8 hours as needed. ibuprofen (MOTRIN) 600 mg tablet Take 1 tablet by mouth every 6 hours as needed for pain. No family history on file. Social History Tobacco Use Smoking status: Former Types: Cigarettes Passive exposure: Current Smokeless tobacco: Never Substance Use Topics Alcohol use: No Drug use: No Review of Systems Constitutional: Positive for appetite change, fatigue, fever and malaise/fatigue. Negative for weight loss. HENT: Positive for postnasal drip, rhinorrhea and sneezing. Negative for ear pain, hoarse voice, sore throat and trouble swallowing. Respiratory: Positive for cough. Negative for apnea, hemoptysis, sputum production, choking, chest tightness, shortness of breath and wheezing. Cardiovascular: Negative for chest pain, dyspnea on exertion and PND. Gastrointestinal: Negative for abdominal pain, diarrhea, heartburn, nausea and vomiting. Musculoskeletal: Positive for myalgias. Skin: Negative for color change, pallor and rash. Neurological: Positive for headaches. Negative for dizziness and facial asymmetry. Hematological: Negative for adenopathy. Does not bruise/bleed easily. Objective BP 116/64 Pulse 86 Temp 37 C (98.6 F) Resp 16 Wt 111.1 kg (244 lb 14.9 oz) LMP 02/29/2024 SpO2 96% BMI 38.36 kg/m Physical Exam Vitals and nursing note reviewed. Constitutional: General: She is not in acute distress. Appearance: Normal appearance. She is normal weight. She is not ill-appearing, toxic-appearing or diaphoretic. HENT: Head: Normocephalic and atraumatic. Right Ear: Ear canal and external ear normal. Left Ear: Ear canal and external ear normal. Nose: Congestion present. No rhinorrhea. Mouth/Throat: Mouth: Mucous membranes are moist. Pharynx: Posterior oropharyngeal erythema present. No oropharyngeal exudate. Eyes: General: Right eye: No discharge. Left eye: No discharge. Extraocular Movements: Extraocular movements intact. Conjunctiva/sclera: Conjunctivae normal. Pupils: Pupils are equal, round, and reactive to light. Cardiovascular: Rate and Rhythm: Normal rate and regular rhythm. Pulses: Normal pulses. Heart sounds: Normal heart sounds. No murmur heard. No friction rub. Pulmonary: Effort: Pulmonary effort is normal. No respiratory distress. Breath sounds: Normal breath sounds. No stridor. No wheezing, rhonchi or rales. Chest: Chest wall: No tenderness. Abdominal: General: Abdomen is flat. There is no distension. Palpations: Abdomen is soft. There is no mass. Tenderness: There is no abdominal tenderness. There is no right CVA tenderness, left CVA tenderness, guarding or rebound. Hernia: No hernia is present. Musculoskeletal: General: No swelling, tenderness, deformity or signs of injury. Normal range of motion. Cervical back: Normal range of motion and neck supple. No rigidity. Right lower leg: No edema. Left lower leg: No edema. Lymphadenopathy: Cervical: Cervical adenopathy present. Skin: General: Skin is warm and dry. Capillary Refill: Capillary refill takes less than 2 seconds. Coloration: Skin is not jaundiced or pale. Findings: No bruising, erythema, lesion or rash. Neurological: General: No focal deficit present. Mental Status: She is alert and oriented to person, place, and time. Cranial Nerves: No cranial nerve deficit. Sensory: No sensory deficit. Motor: No weakness. Coordination: Coordination normal. Gait: Gait normal. Psychiatric: Mood and Affect: Mood normal. Behavior: Behavior normal. Thought Content: Thought content normal. Judgment: Judgment normal. Assessment and Plan ASSESSMENT/PLAN: 1. URI, acute - ICD9: 465.9, ICD10: J06.9 (primary diagnosis) - Discussed viral etiology and rationale for treatment. - Symptomatic treatment with prn analgesia - Supportive care with fluids and rest - The patient may also use OTC cough and cold meds as needed, warm salt water gargles, throat lozenges and/or OTC throat spray as needed, and nasal saline gtts and suction prn. - Follow up in 3-5 days if symptoms persist or sooner if worsening of symptoms - COVID & INFLUENZA A/B & RSV NAAT, ROUTINE 2. Viral illness - ICD9: 079.99, ICD10: B34.9 - Discussed viral etiology and rationale for treatment. - Symptomatic treatment with prn analgesia - Supportive care with fluids and rest - COVID & INFLUENZA A/B & RSV NAAT, ROUTINE Lucrecia Arreguin APRN.TAKE UP OPERATOR documented in this encounter 04-24-2024 Note HNO ID: [id number] Author: NANDO NÚÑEZ APRN.CNP Service: ? Author Type: Nurse Practitioner Type: Progress Notes Filed: 04/24/2024 13:27 Note Text: Subjective HPI HPI Daksha Dos Santos is a 38 year old female who presents today for CC of left neck pain after sleeping. This started 5 days ago. Has tried nothing for relief. Symptoms are worsened by rom of neck/shoulder. Denies injury. Denies rash. Vomiting 3 days ago/not recently. Denies possibility of being . .Patient presents with: Neck Pain: Left shoulder/neck/back pain since Mon and getting worse. 0 injuries known PAST MEDICAL HISTORY Diagnosis Date NEGATIVE MEDICAL HISTORY No past surgical history on file. ALLERGIES Patient has no known allergies. MEDICATIONS albuterol HFA (PROAIR HFA) 90 mcg/actuation inhaler Inhale 2 Puffs as instructed every 6 hours as needed. albuterol HFA (PROAIR HFA) 90 mcg/actuation inhaler Inhale 2 Puffs as instructed every 4 hours as needed. ibuprofen (MOTRIN) 800 mg tablet Take 1 tablet by mouth every 8 hours as needed for Pain. acetaminophen (TYLENOL) 500 mg tablet Take 1 tablet by mouth every 8 hours as needed. No family history on file. Social History Tobacco Use Smoking status: Former Types: Cigarettes Passive exposure: Current Smokeless tobacco: Never Substance Use Topics Alcohol use: No Drug use: No ROS Objective Blood pressure 148/76, pulse 71, temperature 36.3 ?C (97.4 ?F), resp. rate 16, weight 116.5 kg (256 lb 13.4 oz), last menstrual period 02/29/2024, SpO2 97%. Physical Exam Constitutional: General: She is not in acute distress. Appearance: Normal appearance. She is not toxic-appearing or diaphoretic. HENT: Head: Normocephalic and atraumatic. Cardiovascular: Rate and Rhythm: Normal rate and regular rhythm. Heart sounds: Normal heart sounds, S1 normal and S2 normal. Pulmonary: Effort: Pulmonary effort is normal. Breath sounds: Normal breath sounds. Abdominal: General: Bowel sounds are normal. Palpations: Abdomen is soft. Tenderness: There is no abdominal tenderness. Musculoskeletal: Back: Skin: General: Skin is warm and dry. Neurological: Mental Status: She is alert and oriented to person, place, and time. Gait: Gait is intact. ASSESSMENT/PLAN: 1. Neck pain - ICD9: 723.1, ICD10: M54.2 -use medication as prescribed -follow up if symptoms persist, worsen, change - PREDNISONE 10 MG TABLET Nando Núñez APRN.CNP [facility] 04-24-2024 History of Presen t illness Narrative Images from the original note were not included. Subjective HPI HPI Daksha Dos Santos is a 38 year old female who presents today for CC of left neck pain after sleeping. This started 5 days ago. Has tried nothing for relief. Symptoms are worsened by rom of neck/shoulder. Denies injury. Denies rash. Vomiting 3 days ago/not recently. Denies possibility of being . .Patient presents with: Neck Pain: Left shoulder/neck/back pain since Mon and getting worse. 0 injuries known PAST MEDICAL HISTORY Diagnosis Date NEGATIVE MEDICAL HISTORY No past surgical history on file. ALLERGIES Patient has no known allergies. MEDICATIONS albuterol HFA (PROAIR HFA) 90 mcg/actuation inhaler Inhale 2 Puffs as instructed every 6 hours as needed. albuterol HFA (PROAIR HFA) 90 mcg/actuation inhaler Inhale 2 Puffs as instructed every 4 hours as needed. ibuprofen (MOTRIN) 800 mg tablet Take 1 tablet by mouth every 8 hours as needed for Pain. acetaminophen (TYLENOL) 500 mg tablet Take 1 tablet by mouth every 8 hours as needed. No family history on file. Social History Tobacco Use Smoking status: Former Types: Cigarettes Passive exposure: Current Smokeless tobacco: Never Substance Use Topics Alcohol use: No Drug use: No ROS Objective Blood pressure 148/76, pulse 71, temperature 36.3 C (97.4 F), resp. rate 16, weight 116.5 kg (256 lb 13.4 oz), last menstrual period 02/29/2024, SpO2 97%. Physical Exam Constitutional: General: She is not in acute distress. Appearance: Normal appearance. She is not toxic-appearing or diaphoretic. HENT: Head: Normocephalic and atraumatic. Cardiovascular: Rate and Rhythm: Normal rate and regular rhythm. Heart sounds: Normal heart sounds, S1 normal and S2 normal. Pulmonary: Effort: Pulmonary effort is normal. Breath sounds: Normal breath sounds. Abdominal: General: Bowel sounds are normal. Palpations: Abdomen is soft. Tenderness: There is no abdominal tenderness. Musculoskeletal: Back: Skin: General: Skin is warm and dry. Neurological: Mental Status: She is alert and oriented to person, place, and time. Gait: Gait is intact. ASSESSMENT/PLAN: 1. Neck pain - ICD9: 723.1, ICD10: M54.2 -use medication as prescribed -follow up if symptoms persist, worsen, change - PREDNISONE 10 MG TABLET Nando Núñez APRN.TAKE UP OPERATOR documented in this encounter 04-11-2024 Note HNO ID: [id number] Author: TANO BURNHAM APRN.PRICILA Service: ? Author Type: Nurse Practitioner Type: Progress Notes Filed: 04/11/2024 10:41 Note Text: Subjective She came in with complaints of left upper tooth pain and right ear pain. Patient says she finished antibiotics for tooth infection a little over a week ago it was amoxicillin. Patient denies any fever chills nausea vomiting. Patient denies any other symptoms. The history is provided by the patient. No vendor analyst was used. Ear Pain Review of Systems Constitutional: Negative. Skin: Negative. Objective Physical Exam Constitutional: Appearance: Normal appearance. HENT: Right Ear: Hearing, tympanic membrane, ear canal and external ear normal. Left Ear: Hearing, tympanic membrane, ear canal and external ear normal. Mouth/Throat: Comments: Patient has significant dental caries. Patient has pain in the area marked above. Mild amount of swelling and erythema noted no drainage noted. Pulmonary: Effort: Pulmonary effort is normal. Neurological: Mental Status: She is alert. PAST MEDICAL HISTORY Diagnosis Date NEGATIVE MEDICAL HISTORY No past surgical history on file. ALLERGIES Patient has no known allergies. MEDICATIONS albuterol HFA (PROAIR HFA) 90 mcg/actuation inhaler Inhale 2 Puffs as instructed every 6 hours as needed. albuterol HFA (PROAIR HFA) 90 mcg/actuation inhaler Inhale 2 Puffs as instructed every 4 hours as needed. ibuprofen (MOTRIN) 800 mg tablet Take 1 tablet by mouth every 8 hours as needed for Pain. acetaminophen (TYLENOL) 500 mg tablet Take 1 tablet by mouth every 8 hours as needed. amoxicillin-clavulanate potassium (AUGMENTIN) 875-125 mg per tablet Take 1 tablet by mouth two times a day for 7 days. No family history on file. Social History Tobacco Use Smoking status: Former Types: Cigarettes Passive exposure: Current Smokeless tobacco: Never Substance Use Topics Alcohol use: No Drug use: No ASSESSMENT/PLAN: 1. Pain, dental - ICD9: 525.9, ICD10: K08.89 - AMOXICILLIN 875 MG-POTASSIUM CLAVULANATE 125 MG TABLET Was educated about proper use of medication and supportive therapies. Patient was educated about red flag symptoms to watch for. Patient has a follow-up appointment with her dentist. Patient was okay with this care plan. Tano Burnham APRN.[facility] 04-11-2024 History of Presen t illness Narrative Images from the original note were not included. Subjective She came in with complaints of left upper tooth pain and right ear pain. Patient says she finished antibiotics for tooth infection a little over a week ago it was amoxicillin. Patient denies any fever chills nausea vomiting. Patient denies any other symptoms. The history is provided by the patient. No vendor analyst was used. Ear Pain Review of Systems Constitutional: Negative. Skin: Negative. Objective Physical Exam Constitutional: Appearance: Normal appearance. HENT: Right Ear: Hearing, tympanic membrane, ear canal and external ear normal. Left Ear: Hearing, tympanic membrane, ear canal and external ear normal. Mouth/Throat: Comments: Patient has significant dental caries. Patient has pain in the area marked above. Mild amount of swelling and erythema noted no drainage noted. Pulmonary: Effort: Pulmonary effort is normal. Neurological: Mental Status: She is alert. PAST MEDICAL HISTORY Diagnosis Date NEGATIVE MEDICAL HISTORY No past surgical history on file. ALLERGIES Patient has no known allergies. MEDICATIONS albuterol HFA (PROAIR HFA) 90 mcg/actuation inhaler Inhale 2 Puffs as instructed every 6 hours as needed. albuterol HFA (PROAIR HFA) 90 mcg/actuation inhaler Inhale 2 Puffs as instructed every 4 hours as needed. ibuprofen (MOTRIN) 800 mg tablet Take 1 tablet by mouth every 8 hours as needed for Pain. acetaminophen (TYLENOL) 500 mg tablet Take 1 tablet by mouth every 8 hours as needed. amoxicillin-clavulanate potassium (AUGMENTIN) 875-125 mg per tablet Take 1 tablet by mouth two times a day for 7 days. No family history on file. Social History Tobacco Use Smoking status: Former Types: Cigarettes Passive exposure: Current Smokeless tobacco: Never Substance Use Topics Alcohol use: No Drug use: No ASSESSMENT/PLAN: 1. Pain, dental - ICD9: 525.9, ICD10: K08.89 - AMOXICILLIN 875 MG-POTASSIUM CLAVULANATE 125 MG TABLET Was educated about proper use of medication and supportive therapies. Patient was educated about red flag symptoms to watch for. Patient has a follow-up appointment with her dentist. Patient was okay with this care plan. Tano Burnham APRN.CNP documented in this encounter 08-09-2023 History of Presen t illness Narrative Radiology Service Progress Note PATIENT NAME: Daksha Dos Santos DATE OF SERVICE: August 09, 2023 TIME: 11:12 AM PATIENT IDENTITY VERIFICATION COMPLETED USING TWO (2) IDENTIFIERS: Name and Date of confirmed by patient verbally. FALL SCREENING: Has the patient had 2 falls in the last year or 1 fall with injury or currently using an Ambulatory Assistive Device (Walker, Cane, Wheelchair, Crutches, etc.)? No PATIENT GENDER DATA: Female. status: : No status: NO. PATIENT RELEVANT IMPLANT DATA REVIEWED: Yes RADIOLOGY DEPARTMENT: General X-ray: Exam(s) Completed: Rib X-Ray: Left PERIPHERAL IV DATA: Not applicable SIGNED BY: RT Dong(R) August 09, 2023 11:12 AM documented in this encounter 07-29-2023 History of Presen t illness Narrative Radiology Service Progress Note PATIENT NAME: Daksha Dos Santos DATE OF SERVICE: July 29, 2023 TIME: 11:37 AM PATIENT IDENTITY VERIFICATION COMPLETED USING TWO (2) IDENTIFIERS: Name and Date of confirmed by patient verbally. FALL SCREENING: Has the patient had 2 falls in the last year or 1 fall with injury or currently using an Ambulatory Assistive Device (Walker, Cane, Wheelchair, Crutches, etc.)? No PATIENT GENDER DATA: Female. status: : No status: NO. PATIENT RELEVANT IMPLANT DATA REVIEWED: Not Applicable RADIOLOGY DEPARTMENT: General X-ray: Exam(s) Completed: Chest X-Ray PERIPHERAL IV DATA: Not applicable SIGNED BY: RT Shailesh(R) July 29, 2023 11:37 AM documented in this encounter 07-29-2023 History of Presen t illness Narrative Patient presents with: Cough: x 3 weeks, causing low back pain HPI: COUGH: 4 weeks. Seen here 07/06/23 and 07/11/23. Initially prescribed tessalon, prednisone, and albuterol; doxycycline at follow up visit. She continues to have a harsh cough. Worse over night and during the morning. It is usually not productive. Back pain: Duration: 3 days Character: sharp Location: left lower ribs Radiation: No. Aggravating: coughing, touching Relieving: lying on the left side, inhaler helps open up to cough easier Pain relievers: Tylenol Associated: some wheezing, cough induced headache, Pertinent negatives: Denies fever, chills, hemoptysis Imaging: none She is a smoker but denies history of asthma. PAST MEDICAL HISTORY Diagnosis Date NEGATIVE MEDICAL HISTORY MEDICATIONS: benzonatate (TESSALON PERLE) 100 mg capsule Take 2 capsules by mouth three times daily as needed. albuterol HFA (PROAIR HFA) 90 mcg/actuation inhaler Inhale 2 Puffs as instructed every 4 hours as needed. ibuprofen (MOTRIN) 800 mg tablet Take 1 tablet by mouth every 8 hours as needed for Pain. acetaminophen (TYLENOL) 500 mg tablet Take 1 tablet by mouth every 8 hours as needed. ALLERGIES: ALLERGIES No Known Allergies VITALS: BP 120/72 Pulse 104 Temp 36.9 C (98.5 F) Resp 16 Wt 127.9 kg (282 lb) LMP 09/06/2017 SpO2 98% BMI 44.17 kg/m PHYSICAL EXAM: GEN: pleasant, no acute distress, alert HEART: regular rate, regular rhythm during my exam, no murmurs LUNGS: clear to auscultation, no wheezes or crackles, no increased WOB; intermittent harsh raspy cough. RIBS: tender left 11th-10th rib in line with the scapula. No midline or right rib pain. Pressure on anterior ribs does not induce posterior pain. EXT: no clubbing, no cyanosis, no edema ASSESSMENT/PLAN: 1. Subacute cough - ICD9: 786.2, ICD10: R05.2 (primary diagnosis) 2. Rib pain on left side - ICD9: 786.50, ICD10: R07.81 - XR CHEST 2V FRONTAL/LAT - no overt infiltrate or fracture. Radiology interpretation is pending. The patient will be notified if there is a significant finding in the report not discussed at the time of the visit. Post bronchitic cough with left chest wall strain/sprain. She feels she is overall improving but was concerned about the new back pain symptom. Refill tessalon. As needed OTC analgesia. Follow up with worsening cough, worsening shortness of breath, increasing chest pain, or late onset fever. Jono Bustos MD documented in this encounter 07-11-2023 History of Presen t illness Narrative Subjective HPI Nontoxic-appearing female presents to urgent care with chief complaint of upper respiratory tract like infection. Duration of symptoms 9 days. Associated symptoms sore throat, nasal congestion, nasal discharge and nonproductive cough. States recently sinus pressure has worsened. Was seen here 5 days ago placed on Tessalon Perles and prednisone. This has helped some. Patient denies the use of any [id number] medications or home remedies for symptom management. Patient states recent sick contacts with similar signs and symptoms. Patient denies any productive cough, fever, chest pain, shortness of breath, pleuritic pain, hemoptysis, rash, abdominal pain, nausea, vomiting or change in bowel or bladder habit. Past medical history prescription medication use allergies reviewed. Denies chance of is not breast-feeding. .Patient presents with: Cough: Cough and congestion x 1 week History reviewed. No pertinent past medical history. History reviewed. No pertinent surgical history. ALLERGIES Patient has no known allergies. MEDICATIONS predniSONE (DELTASONE) 20 mg tablet Take 2 tablets by mouth once daily for 5 days. benzonatate (TESSALON PERLE) 100 mg capsule Take 2 capsules by mouth three times daily as needed. albuterol HFA (PROAIR HFA) 90 mcg/actuation inhaler Inhale 2 Puffs as instructed every 4 hours as needed. ibuprofen (MOTRIN) 800 mg tablet Take 1 tablet by mouth every 8 hours as needed for Pain. acetaminophen (TYLENOL) 500 mg tablet Take 1 tablet by mouth every 8 hours as needed. ibuprofen (MOTRIN) 800 mg tablet Take 1 tablet by mouth every 8 hours as needed. (Patient not taking: Reported on 07/06/2023) History reviewed. No pertinent family history. Social History Tobacco Use Smoking status: Former Types: Cigarettes Passive exposure: Current Smokeless tobacco: Never Substance Use Topics Alcohol use: No Drug use: No BP 108/68 Pulse 73 Temp 36.7 C (98 F) (Tympanic) Resp 18 Wt 128.9 kg (284 lb 3.2 oz) LMP 09/06/2017 SpO2 98% BMI 44.51 kg/m Review of Systems Constitutional: Negative for chills, fever and malaise/fatigue. HENT: Positive for congestion, sinus pain and sore throat. Negative for ear discharge and ear pain. Eyes: Negative for blurred vision, pain, discharge and redness. Respiratory: Positive for cough. Negative for hemoptysis, sputum production, shortness of breath, wheezing and stridor. Cardiovascular: Negative for chest pain. Gastrointestinal: Negative for abdominal pain, diarrhea, nausea and vomiting. Musculoskeletal: Negative for myalgias. Skin: Negative for itching and rash. Neurological: Negative for dizziness and headaches. Objective Physical Exam Constitutional: General: She is not in acute distress. Appearance: She is not diaphoretic. HENT: Head: Normocephalic. Jaw: No trismus, tenderness, swelling or pain on movement. Nose: Congestion present. Right Sinus: Maxillary sinus tenderness present. Left Sinus: Maxillary sinus tenderness present. Mouth/Throat: Mouth: Mucous membranes are moist. Pharynx: Oropharynx is clear. Uvula midline. No pharyngeal swelling, oropharyngeal exudate, posterior oropharyngeal erythema or uvula swelling. Eyes: Conjunctiva/sclera: Conjunctivae normal. Pupils: Pupils are equal, round, and reactive to light. Cardiovascular: Rate and Rhythm: Normal rate and regular rhythm. Heart sounds: Normal heart sounds. Pulmonary: Effort: Pulmonary effort is normal. No tachypnea, accessory muscle usage or respiratory distress. Breath sounds: No stridor. Wheezing present. No rhonchi or rales. Abdominal: General: There is no distension. Palpations: Abdomen is soft. Tenderness: There is no abdominal tenderness. There is no guarding or rebound. Musculoskeletal: Cervical back: Normal range of motion and neck supple. No edema, erythema, rigidity or tenderness. No pain with movement. Normal range of motion. Lymphadenopathy: Cervical: No cervical adenopathy. Skin: General: Skin is warm and dry. Neurological: Mental Status: She is alert and oriented to person, place, and time. ASSESSMENT/PLAN: 1. Sinobronchitis - ICD9: 473.9, 490, ICD10: J32.9, J40 Diagnosed with sinobronchitis. Placed on doxycycline. Chest x-ray offered declined x-ray at this time. Patient was educated on supportive therapies. Patient will follow up with primary care provider as needed. Patient was instructed to immediately proceed to emergency room for any new, worsening, or symptoms lasting longer than anticipated. The patient's clinical presentation is otherwise unremarkable at this time. Based on exam and clinical finding, the patient is stable for discharge. Plan of care was discussed with patient. Patient verbalizes understanding and agrees to plan of care. This note was generated using [employer] software. It may contain errors in wording, punctuation, or spelling. Vladislav Castaneda APRN.PRICILA documented in this encounter 07-06-2023 Instructions Aliyah Meo APRN.PRICILA - 07/06/2023 1:16 PM EDT Tessalfabricio Marsh 1-2 every 8 hours, do not combine this with robitussin or delsym Albuterol inhaler 2 puffs every 4-6 hours prn for cough * Prednisone 40 mg (2 tablets) per day for 5 days, take in morning or early in day * Do not NSAIDs during this 5 day course (ibuprofen, naproxen, Motrin, Aleve, Advil) Tylenol only during prednisone use * Follow up with primary care provider if no improvement with treatment * Seek medical care immediately, call 911, go to ER if you have chest pain, difficulty breathing, shortness of breath, inability to swallow. documented in this encounter 07-06-2023 History of Presen t illness Narrative Subjective The history is provided by the patient. No vendor analyst was used. HPI Daksha Dos Santos is a 38 year old female who presents today for CC of cough and chest congestion for 4 days. She also has noticed wheezing. She has used no treatment or medications. 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 BP 112/80 Pulse 93 Temp 37.3 C (99.2 F) Resp 18 Wt 128.4 kg (283 lb) LMP 09/06/2017 SpO2 98% BMI 44.32 kg/m Social History Tobacco Use Smoking status: Former Types: Cigarettes Passive exposure: Current Smokeless tobacco: Never Substance Use Topics Alcohol use: No Drug use: No History reviewed. No pertinent past medical history. I have confirmed and edited as necessary, the [facility] Review of Systems Constitutional: Negative for chills and fever. HENT: Positive for congestion. Negative for ear pain, sinus pain and sore throat. Respiratory: Positive for cough. Negative for sputum production, shortness of breath and wheezing. Cardiovascular: Negative for chest pain. Musculoskeletal: Negative for myalgias. Neurological: Negative for headaches. Objective Physical Exam Vitals and nursing note reviewed. HENT: Head: Normocephalic and atraumatic. Right Ear: Tympanic membrane, ear canal and external ear normal. Left Ear: Tympanic membrane, ear canal and external ear normal. Nose: No mucosal edema, congestion or rhinorrhea. Right Sinus: No maxillary sinus tenderness or frontal sinus tenderness. Left Sinus: No maxillary sinus tenderness or frontal sinus tenderness. Mouth/Throat: Pharynx: Uvula midline. No oropharyngeal exudate or posterior oropharyngeal erythema. Cardiovascular: Rate and Rhythm: Normal rate and regular rhythm. Heart sounds: Normal heart sounds. Pulmonary: Effort: Pulmonary effort is normal. Breath sounds: Wheezing present. Comments: A dry hacking cough was noted during this encounter. Talking in full sentences. Handling secretions without drooling. Lips and nailbeds are pink without cyanosis. Lymphadenopathy: Head: Right side of head: No submental, submandibular or tonsillar adenopathy. Left side of head: No submental, submandibular or tonsillar adenopathy. Cervical: No cervical adenopathy. Skin: General: Skin is warm and dry. Neurological: Mental Status: She is alert. Psychiatric: Mood and Affect: Affect normal. ASSESSMENT/PLAN: 1. Bronchitis - ICD9: 490, ICD10: J40 Prednisone 40 mg (2-20mg tablets) po QD for 5 days Albuterol inhaler prn Tesslon vikrams Declines covid testing. Advised to follow up with PCP prn Diagnosis and treatment plan were discussed and questions were answered to the patient's satisfaction. Pt acknowledged understanding of concepts and follow up plan. Specific signs and symptoms that would indicate the need for higher level of care were discussed in detail warranting prompt ER evaluation. Aliyah Moe APRN.TAKE UP OPERATOR documented in this encounter 08-15-2022 History of Presen t illness Narrative Images from the original note were not included. Subjective Ear Pain Associated symptoms include a sore throat. Pertinent negatives include no chills, congestion, coughing or fever. Daksha Dos Santos is a 37 year old female who presents with right ear pain. States she has pain below her right ear near her neck. She was told after she had COVID she had fluid in both ears and told to use flonase, which she did. Last night she noted pain with swallowing on the right tonsil, and today the pain is below her ear. Review of Systems Constitutional: Negative for chills and fever. HENT: Positive for ear pain and sore throat. Negative for congestion and hearing loss. Respiratory: Negative for cough. Cardiovascular: Negative. Neurological: Negative for dizziness. BP 112/74 Pulse 85 Temp 36.6 C (97.9 F) Resp 21 Wt 115.8 kg (255 lb 6.4 oz) LMP 09/06/2017 SpO2 99% BMI 40.00 kg/m No past medical history on file. No past surgical history on file. ALLERGIES Patient has no known allergies. MEDICATIONS ibuprofen (MOTRIN) 800 mg tablet Take 1 tablet by mouth every 8 hours as needed for Pain. acetaminophen (TYLENOL) 500 mg tablet Take 1 tablet by mouth every 8 hours as needed. ibuprofen (MOTRIN) 800 mg tablet Take 1 tablet by mouth every 8 hours as needed. No family history on file. Social History Tobacco Use Smoking status: Former Types: Cigarettes Passive exposure: Current Smokeless tobacco: Never Substance Use Topics Alcohol use: No Drug use: No Objective Physical Exam Vitals and nursing note reviewed. Constitutional: Appearance: She is obese. HENT: Right Ear: Hearing, tympanic membrane, ear canal and external ear normal. Left Ear: Hearing, tympanic membrane, ear canal and external ear normal. Mouth/Throat: Mouth: Mucous membranes are moist. Pharynx: Oropharynx is clear. No pharyngeal swelling, oropharyngeal exudate or posterior oropharyngeal erythema. Tonsils: No tonsillar exudate or tonsillar abscesses. Cardiovascular: Rate and Rhythm: Normal rate. Pulmonary: Effort: Pulmonary effort is normal. Skin: General: Skin is warm and dry. Findings: No erythema or rash. Neurological: Mental Status: She is alert. ASSESSMENT/PLAN: 1. Tonsil stone - ICD9: 474.8, ICD10: J35.8 - CONSULT TO ENT - written information provided about tonsil stones. 2. Ear pain, right - ICD9: 388.70, ICD10: H92.01 -normal ear exam today. - recommend Flonase nasal spray Rosalba Hoffman APRN.TAKE UP OPERATOR documented in this encounter 08-15-2022 Instructions Rosalba Hoffman APRN.TAKE UP OPERATOR - 08/15/2022 1:44 PM EDT ASSESSMENT/PLAN: 1. Tonsil stone - ICD9: 474.8, ICD10: J35.8 - CONSULT TO ENT - written information provided about tonsil stones. 2. Ear pain, right - ICD9: 388.70, ICD10: H92.01 -normal ear exam today. - recommend Flonase nasal spray Rosalba Hoffman APRN.CNP documented in this encounter Evaluation note No assessment inform ation available Work Phone: Evaluation note Diagnosis Tonsil stone- Primary Other chronic disease of tonsils and adenoids Ear pain, right Otalgia, unspecified [facility] Diagnosis Bronchitis- Primary Bronchitis, not specified as acute or chronic [facility]* Diagnosis Sinobronchitis- Primary Unspecified sinusitis (chronic) [facility]* Diagnosis Subacute cough- Primary Cough Rib pain on left side Chest pain, unspecified [facility]* Diagnosis Pain, dental- Primary Unspecified disorder of the teeth and supporting structures [facility]* Diagnosis Neck pain- Primary Cervicalgia [facility]* Diagnosis URI, acute- Primary Acute upper respiratory infections of unspecified site Viral illness Unspecified viral infection, in conditions classified elsewhere and of unspecified site [facility]* Diagnosis [place] eye disease of right eye- Primary [facility]* Diagnosis Subacute cough Cough Rib pain on left side Chest pain, unspecified documented in this encounter Evaluation note* Diagnosis Rib pain Chest pain, unspecified documented in this encounter Evaluation note* Diagnosis Otitis media with effusion, right- Primary [facility]* Diagnosis URI, acute- Primary Acute upper respiratory infections of unspecified site Sore throat Acute pharyngitis ETD (Eustachian tube dysfunction), right [facility]* Diagnosis URI, acute- Primary Acute upper respiratory infections of unspecified site Sore throat Acute pharyngitis [facility]* Diagnosis Sore throat- Primary Acute pharyngitis Viral illness Unspecified viral infection, in conditions classified elsewhere and of unspecified site documented in this encounter [facility] for referral (narrative)* Diagnostic Procedure Only (Urgent) - Closed Specialty Diagnoses / Procedures Referred By Mario t Referred To Contact XR IMAGING Diagnoses Rib pain Procedures XR RIBS/CHEST 3V AP RIB/OBLS/CXR LEFT RADEX RIBS UNI W/POSTEROANT CH MINIMUM 3 VIEWS Tano Burnham APRN.TAKE UP OPERATOR [address] [place] [address] [place] [address] Referral ID Status Reason Start Date Expiration Date V isits Requested Visits Authorized [id number] Closed Auto-Generate d Referral 08/09/2023 09/07/2024 1 1 [facility] for visit Narrative* Diagnostic Procedure Only (Urgent) - Closed Specialty Diagnoses / Procedures Referred By Mario valles Referred To Contact XR IMAGING Diagnoses Rib pain Procedures XR RIBS/CHEST 3V AP RIB/OBLS/CXR LEFT RADEX RIBS UNI W/POSTEROANT CH MINIMUM 3 VIEWS Tano Burnham APRN.TAKE UP OPERATOR [address] [place] [address] [place] [address] Referral ID Status Reason Start Date Expiration Date V isits Requested Visits Authorized [id number] Closed Auto-Generate d Referral 08/09/2023 09/07/2024 1 1 Summary Purpose Family History No Family History Records FoundNo Family History Records FoundNo Family History Records Found Advance Directives No Advanced Directives Records Found Advance Directive Response Recorded Date/ Time Living Will No May 10, 2022 10:49am Power of Applier No May 10 10:49am Chief Complaint and Reason for Visit Chief Complaint HEADACHE,CHILLS Reason for Referral Specialty Diagnoses / Procedures Referred By Mario valles Referred To Contact Ent - Otolaryngology Diagnoses Tonsil stone Procedures CONSULT TO ENT OFFICE/OUTPATIENT [facility] MDM 60-74 MINUTES Rosalba Hoffman APRN.TAKE UP OPERATOR [address] [place] [address] Referral ID Status Reason Start Date Expiration Date Visits Requested Visits Authorized [id number] Authorized PCP Requested Referral 08/15/2022 08/15/2023 1 1 Additional Source Comments INFORMATION SOURCE (unrecogn ized section and content) DATE CREATED AUTHOR 05/06/2018 [facility] DATE CREATED AUTHOR AUTHOR'S ORGANIZ ATION [facility] DATE CREATED AUTHOR AUTHOR'S ORGANIZ ATION 03/16/2025 [facility] Goals (unrecognized section and content) Goals may be documented in a n alternate section Source Comments (unrecognize d section and content) In the event this informatio n is protected by the Federal Confidentiality of Alcohol and Drug Abuse Patient Records regulations: The Federal rules restrict any use of the information to criminally investigate or prosecute any alcohol or drug abuse patient.In the event this information is protected by the Federal Confidentiality of Alcohol and Drug Abuse Patient Records regulations: The Federal rules restrict any use of the information to criminally investigate or prosecute any alcohol or drug abuse patient.In the event this information is protected by the Federal Confidentiality of Alcohol and Drug Abuse Patient Records regulations: The Federal rules restrict any use of the information to criminally investigate or prosecute any alcohol or drug abuse patient.In the event this information is protected by the Federal Confidentiality of Alcohol and Drug Abuse Patient Records regulations: The Federal rules restrict any use of the information to criminally investigate or prosecute any alcohol or drug abuse patient.In the event this information is protected by the Federal Confidentiality of Alcohol and Drug Abuse Patient Records regulations: The Federal rules restrict any use of the information to criminally investigate or prosecute any alcohol or drug abuse patient.In the event this information is protected by the Federal Confidentiality of Alcohol and Drug Abuse Patient Records regulations: The Federal rules restrict any use of the information to criminally investigate or prosecute any alcohol or drug abuse patient.In the event this information is protected by the Federal Confidentiality of Alcohol and Drug Abuse Patient Records regulations: The Federal rules restrict any use of the information to criminally investigate or prosecute any alcohol or drug abuse patient.In the event this information is protected by the Federal Confidentiality of Alcohol and Drug Abuse Patient Records regulations: The Federal rules restrict any use of the information to criminally investigate or prosecute any alcohol or drug abuse patient.In the event this information is protected by the Federal Confidentiality of Alcohol and Drug Abuse Patient Records regulations: The Federal rules restrict any use of the information to criminally investigate or prosecute any alcohol or drug abuse patient.In the event this information is protected by the Federal Confidentiality of Alcohol and Drug Abuse Patient Records regulations: The Federal rules restrict any use of the information to criminally investigate or prosecute any alcohol or drug abuse patient.In the event this information is protected by the Federal Confidentiality of Alcohol and Drug Abuse Patient Records regulations: The Federal rules restrict any use of the information to criminally investigate or prosecute any alcohol or drug abuse patient.In the event this information is protected by the Federal Confidentiality of Alcohol and Drug Abuse Patient Records regulations: The Federal rules restrict any use of the information to criminally investigate or prosecute any alcohol or drug abuse patient.In the event this information is protected by the Federal Confidentiality of Alcohol and Drug Abuse Patient Records regulations: The Federal rules restrict any use of the information to criminally investigate or prosecute any alcohol or drug abuse patient.In the event this information is protected by the Federal Confidentiality of Alcohol and Drug Abuse Patient Records regulations: The Federal rules restrict any use of the information to criminally investigate or prosecute any alcohol or drug abuse patient.In the event this information is protected by the Federal Confidentiality of Alcohol and Drug Abuse Patient Records regulations: The Federal rules restrict any use of the information to criminally investigate or prosecute any alcohol or drug abuse patient.In the event this information is protected by the Federal Confidentiality of Alcohol and Drug Abuse Patient Records regulations: The Federal rules restrict any use of the information to criminally investigate or prosecute any alcohol or drug abuse patient. Reason for Visit (unrecogniz ed section and content) Reason Comments Ear Pain Right ear x 1 day Reason Comments Cough Persist ant, worseni ng with SMITH Reason Comments Cough Cough and congestion x 1 week Reason Comments Cough x 3 weeks, causing l ow back pain Reason Comments Ear Pain Right ear pain x3 da ys Reason Comments Neck Pain Left shoulder/neck/b ack pain since Mon and getting worse. 0 injuries known Reason Comments Headache fever, fatigue, body aches x 16 hours Reason Comments Results Reason Comments Eye Problem right redness, irrit ated and discharge x last night Reason Comments Ear Pain VANESSA ear pain x 1 day Reason Comments Ear Pain R ear pain, sore thr oat, runny nose, nasal congestion, chest tightness, stomachache x2 days Reason Comments Sore Throat Flu Like Symptoms Reason Comments Sore Throat Bilateral ear pain a nd fullness, fever x last night Care Teams (unrecognized sec tion and content) Lawn Care Technician Relationship Specialty Start Date End Date [facility] [place] [phone] PCP - General 12/28/24 Lawn Care Technician Relationship Specialty Start Date End Date [facility], [facility] [address] [place] [phone] PCP - General 12/28/24 Lawn Care Technician Relationship Specialty Start Date End Date [facility], [facility] [address] [place] [phone] PCP - General 12/28/24 Lawn Care Technician Relationship Specialty Start Date End Date [facility], [facility] [address] [place] [phone] PCP - General 12/28/24 Lawn Care Technician Relationship Specialty Start Date End Date [facility], [facility] [address] [place] [phone] PCP - General 12/28/24 FOR RECORDS PERTAINING TO PATIENTS WHO ARE OR HAVE BEEN ENROLLED IN A CHEMICAL DEPENDENCY/SUBSTANCEABUSE PROGRAM, SOME INFORMATION MAY BE OMITTED. This clinical summary was aggregated from multiple sources. Caution should be exercised in using it in the provision of clinical care. This summary normalizes information from multiple sources, and as a consequence, information in this document may materially change the coding, format and clinical context of patient data. In addition, data may be omitted in some cases. CLINICAL DECISIONS SHOULD BE BASED ON THE PRIMARY CLINICAL RECORDS. [facility]. provides no warranty or guarantee of the accuracy or completeness of information in this document.
[2025-07-03 13:00] VITALS: BP 116/83; PULSE 92; RESP 16; TEMP 36.5; O2SAT 98
== END 2025-07-03 13:01 | disposition home or self-care (01) ==
PROVIDERS: Emergency Provider Emergency Medicine; PCP Family Medicine; Visit Provider Emergency Medicine
DX: S39.012A Strain of muscle, fascia and tendon of lower back, initial encounter (principal); F17.210 Nicotine dependence, cigarettes, uncomplicated; X50.9XXA Other and unspecified overexertion or strenuous movements or postures, initial encounter
CPT/HCPCS: 72220; 96374; 96375; 99282; A4216